=== PATIENT | male | born 1930 | race Two or more races ===

== ENCOUNTER 2016-09-21 16:31 | Inpatient (IN) | payer MEDICARE, MEDICAID ==
[2016-09-21] VITALS (9 sets, daily range): BP systolic 73–140; BP diastolic 38–65
[~2016-09-21] VITALS: Ht 165.1 cm; Wt 55.3 kg
--- NOTE | 2016-09-21 16:37 | NUR ---
BBRA FROM [facility] FOR RESPIRATORY DISTRESS X 30 MINS AIRPORT TRAFFIC CONTROLLER. GIVEN NARCAN IN FIELD, PER EMS REPORT PT RESPONDED. PT HAS LEFT FOOT #20 IV ACCESS. PLACED ON MONITOR. AWAITING MD ORDER
--- NOTE | 2016-09-21 16:50 | NUR ---
CALLED NURSING SUP. FOR ICU BED
[2016-09-21] MEDS ORDERED: Magnesium 1GM/D5W 100ML PREMIX 200 ML IV ONE (17:08)
[2016-09-21] MEDS ORDERED: IV NS 0.9% 1,000 ML IV ONE (17:08)
[2016-09-21] MEDS ORDERED: ONDA4TAB5 PO (17:11)
[2016-09-21] MEDS ORDERED: CLON0.1T PO (17:11)
[2016-09-21] MEDS ORDERED: ZINC30OI4 TP (17:11)
[2016-09-21] MEDS ORDERED: POLY15DR57 EACHEYE (17:11)
[2016-09-21] MEDS ORDERED: PHEN118S9 PO (17:11)
[2016-09-21] MEDS ORDERED: IPRA3AMP IH (17:11)
[2016-09-21] MEDS ORDERED: ALBUTEROL FS 2.5 MG/3 ML VIAL.NEB ONE (17:13)
[2016-09-21] MEDS ORDERED: IPRATROPIUM NEB FS 0.5 MG/2.5 ML AMPUL.NEB ONE (17:13)
[2016-09-21] MEDS ORDERED: ALBUTEROL FS 2.5 MG/3 ML VIAL.NEB CONTNEB ONE (17:30)
[2016-09-21] MEDS ORDERED: IPRATROPIUM NEB FS 0.5 MG/2.5 ML AMPUL.NEB NEB ONE (17:30)
[2016-09-21] MEDS ORDERED: methylPREDNISolone SOD SUCC 125 MG/2ML VIAL IV ONE (17:30)
[2016-09-21] MEDS ORDERED: SUCCINYLCHOLINE CHLORIDE 20 MG/ML VIAL IV ONE ×2 (17:30→20:05)
[2016-09-21] MEDS ORDERED: ETOMIDATE 2 MG/ML VIAL IV ONE ×2 (17:30→20:05)
--- NOTE | 2016-09-21 17:30 | NUR ---
PT INTUBATED ON MECH VENT AC 18 TV 450 FIO2 60 % PEEP 0 Addendum: 09/21/16 at 1943 by ALFREDOON FI02 100%
--- NOTE | 2016-09-21 17:40 | NUR ---
RT NOTE: LATE ENTRY- MD ORALLY INTUBATED WITH 7.0 ETT AND SECURED AT 22CM MID LIP LINE. BILATERAL CHEST RISE NOTED. POSITIVE COLOR CHANGE ON CAPNOMETER. PATIENT PLACED ON 840 VENT. SETTINGS PER MD ORDER. ALARMS SET AND AUDIBLE. AMBU BAG AT [facility].
[2016-09-21 17:50] LABS: BASOPHILS # (AUTO) 0.5 /CMM (0.0-0.2); BASOPHILS % (AUTO) 3.1 % (0.0-2.0); EOSINOPHILS % (AUTO) 0.1 % (0.0-6.0); HEMATOCRIT 35 % (39-51); HEMOGLOBIN 11.4 g/dL (13.5-17.5); LYMPHOCYTES # (AUTO) 0.9 /CMM (0.8-4.8); LYMPHOCYTES % (AUTO) 5.6 % (20.0-44.0); MEAN CORPUSCULAR HEMOGLOBIN 30 PG (26.0-33.0); MEAN CORPUSCULAR HGB CONC 33 g/dl (31.0-36.0); MEAN CORPUSCULAR VOLUME 90 fL (80-96); MONOCYTES # (AUTO) 1.1 /CMM (0.1-1.30); NEUTROPHILS # (AUTO) 13.4 /CMM (1.8-8.9); NEUTROPHILS % (AUTO) 84.2 % (43.0-81.0); PLATELET COUNT (AUTO) 247 /CMM (150-450); RDW COEFFICIENT OF VARIATION 16.8 (11.5-15.0); RED BLOOD CELL COUNT(AUTO) 3.86 MIL/uL (4.5-6.0); WHITE BLOOD COUNT (AUTO) 15.9 K/uL (4.3-11.0)
[2016-09-21 18:00] LABS: CALCIUM, SERUM 9.2 mg/dL (8.5-10.1); CARBON DIOXIDE 26 mmol/L (21-32); CHLORIDE 103 mmol/L (98-107); CREATININE 0.9 mg/dL (0.6-1.3); GLUCOSE 225 mg/dL (74-106); POTASSIUM 5.6 mmol/L (3.5-5.1); SODIUM SERUM 137 mmol/L (136-145); UREA NITROGEN, BLOOD 18 mg/dL (7-18)
[2016-09-21 18:08] LABS: TROPONIN I 0.254 ng/mL (0.00-0.056)
[2016-09-21 18:13] LABS: ALANINE AMINOTRANSFERASE 13 U/L (12-78); ALBUMIN 2.4 g/dL (3.4-5.0); ALKALINE PHOSPHATASE 115 U/L (46-116); ASPARTATE AMINOTRANSFERASE 27 U/L (15-37); B-TYPE NATRIURETIC PEPTIDE 13053 PG/ML (0-125); BILIRUBIN,DIRECT 0.1 mg/dL (0.0-0.2); BILIRUBIN,TOTAL 0.5 mg/dL (0.2-1.0); TOTAL PROTEIN, SERUM 7.1 g/dL (6.4-8.2)
--- NOTE | 2016-09-21 18:22 | NUR ---
DR.TIM JOI HENDRICKS POST ACUTE CARE NURSE
[2016-09-21] MEDS ORDERED: IV SET PRIMARY PUMP SET 1 EA INFUS.SET MC ONE ×3 (18:27→23:02)
[2016-09-21] MEDS ORDERED: IV NS 0.9% 1,000 ML ONE (18:27)
[2016-09-21] MEDS ORDERED: PIPERACILLIN /TAZOBACTAM 3.375 G in IV D5W 50 ML IV ONE (18:30)
[2016-09-21] MEDS ORDERED: ASPIRIN 81 MG TAB.CHEW PO ONE (18:30)
[2016-09-21] MEDS ORDERED: FUROSEMIDE 40 MG/4 ML VIAL IV ONE (18:30)
[2016-09-21] MEDS ORDERED: LEVOFLOXACIN 750 MG /D5W 150ML 150 ML IV ONE ×2 (18:30→18:40)
--- NOTE | 2016-09-21 18:31 | NUR ---
ATTEMPTED 3X TO INSERT 16FR NG TUBE, AND 1X TO INSERT 16FR OG TUBE. UNABLE TO INSERT. DR HARVEY NOTIFIED.
[2016-09-21] MEDS ORDERED: ASPIRIN 300 MG/SUPP.RECT RC ONE ×2 (18:40→19:00)
--- NOTE | 2016-09-21 18:40 | NUR ---
[facility] REPAGED
[2016-09-21 19:00] LABS: LACTIC ACID 4.5 mmol/L (0.4-2.0)
[2016-09-21] MEDS ORDERED: IV NS 0.9% 1,000 ML BAG IV ONE (19:00)
--- NOTE | 2016-09-21 19:04 | NUR ---
EPIC PAGED, DR.SIMONA Vasquez CHAIN CARRIER
--- NOTE | 2016-09-21 19:05 | NUR ---
REPORT REC'D FROM JESUS ARREGUIN FOR AMANDA. PER JESUS ARREGUIN - NO SKIN BREAKDOWN NOTED ON BACK. PT HAS SKIN TEAR ON LT HAND. AREA CLEANED AND COVERED WITH BANDAGE.
--- NOTE | 2016-09-21 19:25 | NUR ---
JESUS ARREGUIN AND JESUS GARCIA AT THE BEDSIDE FOR BRO CATH INSERTION. UNABLE TO INERT BRO. SALUD TRIED.
--- NOTE | 2016-09-21 19:26 | NUR ---
UNABLE TO INSERT A BRO CATH. DR. HARVEY IS AWARE.
--- NOTE | 2016-09-21 19:30 | NUR ---
TREVONED NURSING HULL BUILDER FOR MID LINE INSERTION.
--- NOTE | 2016-09-21 19:42 | NUR ---
GAVE REPORT TO [employer] ROOM 257 DR COBB ADMITTING . RESPIRATORY FAILURE
--- NOTE | 2016-09-21 19:43 | NUR ---
GAVE REPORT TO STEPHEN FOR AMANDA
--- NOTE | 2016-09-21 19:45 | NUR ---
DR. SAMANO IS AT THE BEDSIDE.
--- NOTE | 2016-09-21 19:47 | NUR ---
RT AT THE BEDSIDE AND PT IS BEING TRANSPORTED TO ICU VIA GURNEY PER PROTOCOL.
--- NOTE | 2016-09-21 20:06 | NUR ---
PT LEFT FOR ICU VIA GURNEY WITH RN AND RT, PER PROTOCOL.
--- NOTE | 2016-09-21 20:20 | NUR ---
SHELTER MONITOR. ADMISSION. RECEIVED THE PT FROM ER VIA [facility]. PT ORALLY INTUBATED. PT IS LETHARGIC.ETT #7, LIP 24CMS,AC 18,TV 450,FIO2 50%,SAT 98%. NO ACUTE DISTRESS NOTED. FORM SETTER STEEL PAN FORMS SHOWING NSR. IV RT UPPER ARM MID LINE. IVF NS 75 ML/H,HOB ELEVATED. NPO. AFEBRILE. CHRIS HAND SKIN TEAR AND BRUISE NOTED. PICTURE TAKEN. PLACED IN THE CHART. WILL CONTINUE TO MONITOR VITALS.
[2016-09-21] MEDS ORDERED: IV NS 0.9% 1,000 ML IV PRN (20:33)
[2016-09-21] MEDS ORDERED: VANCOMYCIN 1 GM in IV D5W 250 ML IV SCH (21:00)
[2016-09-21] MEDS ORDERED: ACETAMINOPHEN 650 MG/SUPP.RECT RC PRN (21:00)
[2016-09-21] MEDS ORDERED: ONDANSETRON HCL/PF 4 MG/2 ML VIAL IVP PRN (21:00)
[2016-09-21] MEDS ORDERED: PIPERACILLIN /TAZOBACTAM 4.5 G in IV D5W 50 ML IV SCH (21:00)
[2016-09-21] MEDS ORDERED: FEE PK DOSING 1 MIN EA MC ONE (21:02)
[2016-09-21] MEDS: POLYVINYL ALCOHOL 15 ML BOTTLE EACHEYE SCH (21:14)
[2016-09-21] MEDS: ENOXAPARIN SODIUM 40 MG/0.4 ML DISP.SYRIN SQ SCH (21:15)
[2016-09-21] MEDS ORDERED: SECONDARY IV SET 1 EA INFUS.SET MC ONE (21:30)
[2016-09-21] MEDS: VANCOMYCIN 0.75 GM in IV D5W 250 ML IV SCH (21:34)
[2016-09-21 21:44] LABS: ABG BASE EXCESS 0.3 mmol/L; ABG PCO2 36.4 mmHg (35.0-45.0); ABG PH 7.441 (7.350-7.450); ABG PO2 452.8 mmHg (75.0-100.0); ABG TOTAL HEMOGLOBIN 10.9 G/dL (13.5-18.0); AaDO2 223.8 mmHg; COHb 0.1 % (0.5-1.5); MetHb 1.3 % (0.0-1.5); O2Hb 97.6 % (94.0-97.0); PEEP,BG 0 cm H2O; SITE, ABG Right Radial; VENT MODE, BG AC 18 450 100%; VT, ABG 450 mL
[2016-09-21] MEDS ORDERED: PROPOFOL 100 ML IV ONE (23:02)
[2016-09-21] MEDS: PROPOFOL 100 ML IV PRN (23:08)
[2016-09-21] MEDS ORDERED: IPRATROPIUM NEB FS 0.5 MG/2.5 ML AMPUL.NEB NEB PRN (23:30)
--- NOTE | 2016-09-21 23:39 | NUR ---
RT PT RECEIVED INTUBATED FROM ER W/ A 7.0 @ 24CM LIP LINE. VENT SETTING NOTED. ETT PATENT AND SECURE WITH ETT MATHIS. BREATH SOUNDS BILATERAL CLEAR. SX SMALL AMOUNT OF THIN CLEAR SECRETIONS. ALARM SET AND AUDIBLE PER PROTOCOL. DISCONNECT ALARM VERIFIED. AMBU BAG AT [facility]. TABLE LEVER OPERATOR DONE. VENT PLUGGED IN TO RED OUTLET. NO SOB OR RESP DISTRESS NOTED AT THIS TIME. WILL CONTINUE TO MONITOR.
[2016-09-22] VITALS (58 sets, daily range): BP systolic 71–166; BP diastolic 36–77
[2016-09-22] MEDS: PIPERACILLIN /TAZOBACTAM 3.375 G in IV D5W 50 ML IV SCH ×5 (00:22→23:06)
[2016-09-22] MEDS ORDERED: ALBUTEROL FS 2.5 MG/3 ML VIAL.NEB NEB PRN (01:30)
--- NOTE | 2016-09-22 04:01 | NUR ---
AMBULANCE OFFICER. AM CARE, ORAL CARE, BED BATH GIVEN. LINEN CHANGED/REMAINING SAME VENT SETTING TOLERATED IV RT UPPER ARM MID LINE. IVF NS 75 ML/FC PATENT, NPO. FC. HOB ELEVATED. TURN AND REPOSITION Q2H. WILL CONTINUE TO MONITOR VITALS.
[2016-09-22 05:07] LABS: HEMATOCRIT 28 % (39-51); HEMOGLOBIN 9.5 g/dL (13.5-17.5); LYMPHOCYTES # (AUTO) 0.3 /CMM (0.8-4.8); LYMPHOCYTES % (AUTO) 4.5 % (20.0-44.0); MEAN CORPUSCULAR HEMOGLOBIN 29 PG (26.0-33.0); MEAN CORPUSCULAR HGB CONC 34 g/dl (31.0-36.0); MEAN CORPUSCULAR VOLUME 87 fL (80-96); MONOCYTES # (AUTO) 0.3 /CMM (0.1-1.30); MONOCYTES % (AUTO) 3.7 % (2.0-12.0); NEUTROPHILS % (AUTO) 91.8 % (43.0-81.0); PLATELET COUNT (AUTO) 169 /CMM (150-450); RDW COEFFICIENT OF VARIATION 17.3 (11.5-15.0); RED BLOOD CELL COUNT(AUTO) 3.25 MIL/uL (4.5-6.0); WHITE BLOOD COUNT (AUTO) 7.6 K/uL (4.3-11.0)
[2016-09-22 05:27] LABS: THYROID STIMULATING HORMONE 0.512 uIU/mL (0.358-3.74)
[2016-09-22 05:29] LABS: BILIRUBIN,TOTAL 0.6 mg/dL (0.2-1.0); CALCIUM, SERUM 8.2 mg/dL (8.5-10.1); CREATININE 0.8 mg/dL (0.6-1.3); PHOSPHORUS 1.9 mg/dL (2.5-4.9); POTASSIUM 3.9 mmol/L (3.5-5.1)
[2016-09-22 05:30] LABS: ALBUMIN 2.1 g/dL (3.4-5.0); MAGNESIUM 2.1 mg/dL (1.8-2.4); TOTAL PROTEIN, SERUM 5.9 g/dL (6.4-8.2)
--- NOTE | 2016-09-22 07:31 | NUR ---
RT PT RECEIVED ORALLY INTUBATED WITH A 7.0 ETT SECURED AT 24CM AT THE LIP LINE. PT IS ON THE VENT WITH NOTED SETTINGS. PT IS AWAKE AND ALERT. VENT ALARMS ARE SET AND AUDIBLE WITH BVM BY BEDSIDE. COATER SLATE CUFF PRESSURE NOTED. VENT IS PLUGGED INTO RED OUTLET. SX SMALL THICK YELLOW SECRETIONS. NO RESPIRATORY DISTRESS NOTED AT THIS TIME, WILL CONTINUE TO MONITOR. Addendum: 09/22/16 at 1022 by JAMAL ROMERO RT Amended: Links added.
[2016-09-22] MEDS: PANTOPRAZOLE 40 MG VIAL IV SCH (08:45)
[2016-09-22] MEDS: ASPIRIN 81 MG TAB.CHEW PO SCH (08:45)
[2016-09-22] MEDS: POLYVINYL ALCOHOL 15 ML BOTTLE EACHEYE SCH ×3 (08:45→16:30)
[2016-09-22] MEDS: VANCOMYCIN 0.75 GM in IV D5W 250 ML IV SCH ×2 (09:03→22:20)
[2016-09-22] MEDS ORDERED: BUMETANIDE INJ 6 MG in IV NS 0.9% 36 ML IV ONE (10:00)
[2016-09-22 10:13] LABS: ABG BASE EXCESS 1.5 mmol/L; ABG OXYGEN SATURATION 98.8 % (92.0-98.5); ABG PCO2 34.2 mmHg (35.0-45.0); ABG PH 7.479 (7.350-7.450); ABG PO2 188.6 mmHg (75.0-100.0); ABG TOTAL HEMOGLOBIN 9.1 G/dL (13.5-18.0); AaDO2 57.3 mmHg; COHb 0.8 % (0.5-1.5); MetHb 1.1 % (0.0-1.5); O2Hb 96.9 % (94.0-97.0); PEEP,BG 0 cm H2O; SITE, ABG Left Radial; VT, ABG 450 mL
[2016-09-22] MEDS ORDERED: IV SET PRIMARY PUMP SET 1 EA INFUS.SET MC ONE ×3 (10:23→20:23)
[2016-09-22] MEDS: PROPOFOL 100 ML IV PRN (11:17)
[2016-09-22] MEDS ORDERED: NOREPINEPHRINE 16 MG in IV D5W 500 ML IV PRN ×2 (11:30→20:30)
[2016-09-22] MEDS: FIBERSOURCE HN 1,000 ML BOTTLE GT PRN (14:50)
[2016-09-22] MEDS: IPRATROPIUM NEB FS 0.5 MG/2.5 ML AMPUL.NEB NEB SCH ×3 (15:25→23:20)
[2016-09-22] MEDS: ALBUTEROL FS 2.5 MG/3 ML VIAL.NEB NEB SCH ×3 (15:25→23:20)
[2016-09-22] MEDS ORDERED: NEUTRA PHOS 1 POWD.PACKET GT ONE (15:30)
[2016-09-22] MEDS: LACTOBACILLUS RHAMNOSUS GG 1 EACH CAP.SPRINK PO SCH (16:29)
[2016-09-22] MEDS: methylPREDNISolone SOD SUCC 125 MG/2ML VIAL IV SCH (16:30)
[2016-09-22] MEDS: IV D5/ 0.9% NACL 1,000 ML IV PRN (16:38)
--- NOTE | 2016-09-22 17:53 | NUR ---
PATCH SANDER NOTE 0720: Received patient resting comfortably. No respiratory distress noted, with ETT to vent, tolerated settings well. No c/o discomfort at this time. With JENNY midline intact, on Diprivan @ 10mcg. Patient still able to arouse easily, calm and comfortable. With OGT clamped. With condom cath connected to drainage bag, noted with clear keshia colored urine. With BILLET BED OPERATOR restraints on to prevent pulling out tubings. 1030: Started patient on Bumex drip as ordered by Aleida KAMARA. 1500: S/E by Dr. Kyle, with order of laryngoscopy and possible tracheostomy. ordered to DC Bumex drip and start on IVF. dairy husbandry worker on the case for patient has no relatives on file. 1530: Started patient on OGT feeding, kept HOB elevated. 1730: VSS at this time. Kept clean, warm and dry. Needs attended.
--- NOTE | 2016-09-22 19:48 | NUR ---
GRAIN GRADER. INITIAL ASSESSMENT, RECEIVED THE PT REST ON THE BED. ORALLY INTUBATED. SEDATED WITH DIPRIVAN. ETT #7,LIP 24,AC 18, TV 450, FIO2 40%. SAT 98%. NO ACUTE DISTRESS NOTED. SUPPLIER ENGINEER SHOWING NSR. IV RT UPPER ARM MIDLINE. IVF D5NS 75ML/H,DIPRIVAN 10 MCG/KG/MIN. OGT INTACT FIBER SOURCE 45ML/H. CONDOM CATH INTACT. AFEBRILE. HOB ELEVATED. TURN AND REPOSITION Q2H. WILL CONTINUE TO MONITOR VITALS.
[2016-09-22] MEDS: ENOXAPARIN SODIUM 40 MG/0.4 ML DISP.SYRIN SQ SCH (21:00)
[2016-09-23] VITALS (84 sets, daily range): BP systolic 76–152; BP diastolic 37–72
[2016-09-23] MEDS: IPRATROPIUM NEB FS 0.5 MG/2.5 ML AMPUL.NEB NEB SCH ×5 (03:37→20:22)
[2016-09-23] MEDS: ALBUTEROL FS 2.5 MG/3 ML VIAL.NEB NEB SCH ×5 (03:37→20:22)
--- NOTE | 2016-09-23 04:30 | NUR ---
FURNITURE FABRICATOR. AM CARE. ORAL CARE. BED BATH GIVEN. LINEN CHANGED. REMAINING SAME VENT SETTING TOLERATED WELL. SAT 98%. NO ACUTE DISTRESS NOTED. AIRCRAFT TIME CLERK SHOWING NSR. IV RT UPPER ARM MID LINE. IVF D5NS 75ML/H. PT IS NPO.FROM LAST NIGHT. OGT INTACT. AFEBRILE. TURN AND REPOSITION Q2H. WILL CONTINUE TO MONITOR VITALS.
[2016-09-23] MEDS: PIPERACILLIN /TAZOBACTAM 3.375 G in IV D5W 50 ML IV SCH ×4 (04:38→23:30)
[2016-09-23] MEDS: PROPOFOL 100 ML IV PRN ×2 (04:38→16:46)
[2016-09-23 04:42] LABS: BASOPHILS % (AUTO) 0.1 % (0.0-2.0); EOSINOPHILS % (AUTO) 0.1 % (0.0-6.0); HEMATOCRIT 27 % (39-51); HEMOGLOBIN 8.9 g/dL (13.5-17.5); LYMPHOCYTES # (AUTO) 0.5 /CMM (0.8-4.8); LYMPHOCYTES % (AUTO) 4.1 % (20.0-44.0); MEAN CORPUSCULAR HEMOGLOBIN 29 PG (26.0-33.0); MEAN CORPUSCULAR HGB CONC 33 g/dl (31.0-36.0); MEAN CORPUSCULAR VOLUME 88 fL (80-96); MONOCYTES # (AUTO) 0.3 /CMM (0.1-1.30); MONOCYTES % (AUTO) 2.8 % (2.0-12.0); NEUTROPHILS # (AUTO) 10.6 /CMM (1.8-8.9); NEUTROPHILS % (AUTO) 92.9 % (43.0-81.0); PLATELET COUNT (AUTO) 200 /CMM (150-450); RDW COEFFICIENT OF VARIATION 17.3 (11.5-15.0); RED BLOOD CELL COUNT(AUTO) 3.07 MIL/uL (4.5-6.0); WHITE BLOOD COUNT (AUTO) 11.4 K/uL (4.3-11.0)
[2016-09-23 05:29] LABS: TROPONIN I 0.094 ng/mL (0.00-0.056)
[2016-09-23 05:30] LABS: CALCIUM, SERUM 7.8 mg/dL (8.5-10.1)
[2016-09-23 05:31] LABS: BILIRUBIN,TOTAL 0.6 mg/dL (0.2-1.0); MAGNESIUM 1.7 mg/dL (1.8-2.4); PHOSPHORUS 2.4 mg/dL (2.5-4.9); TOTAL PROTEIN, SERUM 5.8 g/dL (6.4-8.2)
[2016-09-23 05:33] LABS: POTASSIUM 2.7 mmol/L (3.5-5.1)
[2016-09-23] MEDS ORDERED: Magnesium 1GM/D5W 100ML PREMIX 100 ML IV ONE (05:59)
[2016-09-23] MEDS ORDERED: POTASSIUM CL. PREMIX PERIPHER. 50 ML ONE (06:00)
[2016-09-23] MEDS ORDERED: IV SET PRIMARY PUMP SET 1 EA INFUS.SET MC ONE ×3 (06:00→16:42)
--- NOTE | 2016-09-23 06:19 | NUR ---
RUG CLEANER HAND. LAB CALLED FOR POTASSIUM 2.7. C EVANS COBB. NEW ORDER RECEIVED
[2016-09-23] MEDS: POTASSIUM CL. PREMIX PERIPHER. 50 ML IV SCH ×8 (06:40→14:33)
[2016-09-23] MEDS: Magnesium 1GM/D5W 100ML PREMIX 100 ML IV SCH ×2 (06:56→08:10)
--- NOTE | 2016-09-23 06:57 | NUR ---
COTTON TIER. DR COBB ORDERED POTASSIUM CHLORIDE 40MEQ ,IVB MAGNESIUM 2G IVB K PHOS 30MM IVB
[2016-09-23] MEDS ORDERED: Potassium Phosphate meq 11 MEQ in IV D5W 100 ML IV SCH (07:00)
[2016-09-23] MEDS: PANTOPRAZOLE 40 MG VIAL IV SCH (08:10)
[2016-09-23] MEDS: ASPIRIN 81 MG TAB.CHEW PO SCH ×3 (08:10→12:44)
[2016-09-23] MEDS: LACTOBACILLUS RHAMNOSUS GG 1 EACH CAP.SPRINK PO SCH ×3 (08:10→16:40)
[2016-09-23] MEDS: methylPREDNISolone SOD SUCC 125 MG/2ML VIAL IV SCH ×2 (08:10→16:42)
[2016-09-23] MEDS: POLYVINYL ALCOHOL 15 ML BOTTLE EACHEYE SCH ×3 (08:11→16:43)
[2016-09-23] MEDS: Potassium Phosphate meq 11 MEQ in IV D5W 100 ML IV SCH ×4 (08:35→17:15)
[2016-09-23] MEDS ORDERED: Magnesium 1GM/D5W 100ML PREMIX 100 ML IV SCH (10:00)
[2016-09-23] MEDS: VANCOMYCIN 0.75 GM in IV D5W 250 ML IV SCH (10:04)
[2016-09-23 10:07] LABS: ABG BASE EXCESS 4.7 mmol/L; ABG PCO2 29.8 mmHg (35.0-45.0); ABG PO2 140.4 mmHg (75.0-100.0); ABG TOTAL HEMOGLOBIN 9.3 G/dL (13.5-18.0); AaDO2 38.5 mmHg; MetHb 1.8 % (0.0-1.5); O2Hb 96.2 % (94.0-97.0); PEEP,BG 0 cm H2O; SITE, ABG Right Radial; VT, ABG 450 mL
--- NOTE | 2016-09-23 11:32 | NUR ---
MECHANICAL DESIGN ENGINEER PRODUCTS NOTE 0720: Received patient resting well. With ETT to vent, tolerated settings well. With JENNY midline intact and RH PIV intact. On IVF infusing as ordered, On KCl and Mg IV bolus for replacements, will F/U with pharmacy re: KPhos. With OGT clamped at this time, will remain NPO for possible procedure. Off Levo for about an hour per previous shift, will monitor for need of Levophed. SBP >90 at this time. On Diprivan @ 10mcg. SB 50's on the monitor, noted with deep inverted T wave. 0820: Rendered sedation vacation, patient with episodes of reaching ETT. Placed back on 10mcg for safety, patient remained calm. S/E by Dr. Wilson, with order for additional KCl IVPB. 1045: S/E by Dr. Kyle, no new order at this time. 1130: S/E by Aleida KAMARA and placed IVAN PICC line and also used Coudet catheter for having difficulty placing Mendes cath. Aleida KAMARA said ok to use PICC line.
--- NOTE | 2016-09-23 13:02 | NUR ---
QUALITY PROCESS LEAD NOTE Made Aleida KAMARA aware for the EKG result, SB 48 with deep inversion of T wave, with order to give Aspirin that was held in am and Trop level.
--- NOTE | 2016-09-23 13:30 | NUR ---
BIOLOGY INTERN NOTE Made Aleida KAMARA aware for the trop 0.077, no new order at this time.
[2016-09-23] MEDS: IV D5/ 0.9% NACL 1,000 ML IV PRN (14:30)
--- NOTE | 2016-09-23 19:23 | NUR ---
COUNSELING CASE MANAGER. INITIAL ASSESSMENT. RECEIVED THE PT REST ON THE BED. ORALLY INTUBATED. SEDATED WITH DIPRIVAN. ETT #7,LIP 24CMS,AC 18,TV 450, FIO2 30%. SAT 98%. NO ACUTE DISTRESS NOTED. GLAZING SUPERINTENDENT SHOWING S CANDICE. IV RT UPPER ARM MID LINE. LT UPPER ARM PICC LINE DIPRIVAN 10 MCG/KG/MIN,IVF D5NS 75 ML/H.HOB ELEVATED. FC PATENT. URINE DRAINING. TURN AND REPOSITION Q2H. WILL CONTINUE TO MONITOR VITALS
[2016-09-23] MEDS: FIBERSOURCE HN 1,000 ML BOTTLE GT PRN (20:49)
[2016-09-23] MEDS: ENOXAPARIN SODIUM 40 MG/0.4 ML DISP.SYRIN SQ SCH (21:00)
[2016-09-23] MEDS: VANCOMYCIN 500 MG in IV D5W 100 ML IV SCH (21:35)
[2016-09-24] VITALS (50 sets, daily range): BP systolic 104–167; BP diastolic 49–87
[2016-09-24] MEDS: IPRATROPIUM NEB FS 0.5 MG/2.5 ML AMPUL.NEB NEB SCH ×7 (00:34→23:59)
[2016-09-24] MEDS: ALBUTEROL FS 2.5 MG/3 ML VIAL.NEB NEB SCH ×7 (00:34→23:59)
[2016-09-24] MEDS: IV D5/ 0.9% NACL 1,000 ML IV PRN (02:29)
--- NOTE | 2016-09-24 02:49 | NUR ---
HOG SCALDER. AM CARE. ORAL CARE, BED BATH GIVEN. LINEN CHANGED. RE,AINING SAME VENT SETTINGS. ONT FEEDING OFF AT 0230 . PT POSTED FOR SURGERY TODAY.NPO. HOB ELEVATED. LT UPPER ARM PICC LINEIVF D5NS 75 ML/H,DIPRIVAN 10MCG/KG/MIN. FC PATENT. URINE DRAINING. TURN AND REPOSITION Q2H. WILL CONTINUE TO MONITOR VITALS.
[2016-09-24 04:52] LABS: BASOPHILS % (AUTO) 0.1 % (0.0-2.0); HEMATOCRIT 28 % (39-51); LYMPHOCYTES # (AUTO) 0.3 /CMM (0.8-4.8); LYMPHOCYTES % (AUTO) 4.3 % (20.0-44.0); MEAN CORPUSCULAR HEMOGLOBIN 28 PG (26.0-33.0); MEAN CORPUSCULAR HGB CONC 32 g/dl (31.0-36.0); MEAN CORPUSCULAR VOLUME 88 fL (80-96); MONOCYTES # (AUTO) 0.3 /CMM (0.1-1.30); MONOCYTES % (AUTO) 4.5 % (2.0-12.0); NEUTROPHILS # (AUTO) 6.7 /CMM (1.8-8.9); NEUTROPHILS % (AUTO) 91.1 % (43.0-81.0); PLATELET COUNT (AUTO) 206 /CMM (150-450); RDW COEFFICIENT OF VARIATION 18.4 (11.5-15.0); RED BLOOD CELL COUNT(AUTO) 3.19 MIL/uL (4.5-6.0); WHITE BLOOD COUNT (AUTO) 7.3 K/uL (4.3-11.0)
[2016-09-24 04:53] LABS: CALCIUM, SERUM 7.7 mg/dL (8.5-10.1); CREATININE 0.8 mg/dL (0.6-1.3); MAGNESIUM 2.2 mg/dL (1.8-2.4); PHOSPHORUS 2.9 mg/dL (2.5-4.9); POTASSIUM 3.7 mmol/L (3.5-5.1)
[2016-09-24] MEDS: PIPERACILLIN /TAZOBACTAM 3.375 G in IV D5W 50 ML IV SCH ×4 (05:05→23:03)
[2016-09-24] MEDS: PROPOFOL 100 ML IV PRN ×2 (06:17→16:49)
--- NOTE | 2016-09-24 07:30 | NUR ---
D/W DR SANTIZO ALL LABS, MEDS, PLAN. PT AWAKE, MOUTH WORDS IN GREENLAND[place]. MINIMALLY SEDATED WITH DIPRIVAN 10 MKM. NPO FOR SURGERY
[2016-09-24 08:45] LABS: ABG PCO2 29.8 mmHg (35.0-45.0); ABG PH 7.506 (7.350-7.450); ABG PO2 186.2 mmHg (75.0-100.0); PEEP,BG 0 cm H2O; SITE, ABG Left Radial; VT, ABG 400 mL
[2016-09-24] MEDS: LACTOBACILLUS RHAMNOSUS GG 1 EACH CAP.SPRINK PO SCH ×2 (08:51→16:51)
[2016-09-24 08:56] LABS: IRON, SERUM 49 ug/dl (50-175); TOTAL IRON BINDING CAPACITY 137 ug/dl (250-450)
[2016-09-24] MEDS: methylPREDNISolone SOD SUCC 125 MG/2ML VIAL IV SCH (09:01)
[2016-09-24] MEDS: PANTOPRAZOLE 40 MG VIAL IV SCH (09:01)
[2016-09-24] MEDS: POLYVINYL ALCOHOL 15 ML BOTTLE EACHEYE SCH ×3 (09:01→16:49)
[2016-09-24 09:16] LABS: FERRITIN 296 ng/mL (8-388)
[2016-09-24] MEDS ORDERED: IV D5/ 0.9% NACL 1,000 ML IV PRN (09:30)
--- NOTE | 2016-09-24 10:00 | NUR ---
R/V'D W DR LUO ALL MEDS AND PLANS. SEE NOTES. IV OF D5NS CONTINUES AT 50 MLS/HR
[2016-09-24] MEDS: VANCOMYCIN 500 MG in IV D5W 100 ML IV SCH ×2 (10:05→22:01)
[2016-09-24] MEDS ORDERED: LIDOCAINE 1%-EPI 1:100,000 20 ML VIAL ONE (11:07)
--- NOTE | 2016-09-24 11:30 | NUR ---
PLANNED SURGERY IS NOT AN EMERGENCY PT HAS ETT IN PLACE. MULTIPLE D/W DR LUO AND ANESTHESIOLOGIST REGARDING SURGERY CONSENTS. DR LUO WILL NOT SIGN ANESTHESIA CONSENT. ANESTHESIOLOGIST WILL NOT ACCEPT DR SANTIZO AND DR LUO AND YANET TAMEZ PROGRESS NOTES CONSENT NOR SURGEON'S OPINION REGARDING NEED FOR PROCEDURE. SOCIAL SERVICE HAS NOT WRITTEN NOTES ABOUT FINDING FAMILY THEY WERE DIRECTED TO LAST SUNDAY AM AND PT STATES BY NOTE THAT HE HAS FAMILY. I ATTEMPTED TO GOOGLE FAMILY.
--- NOTE | 2016-09-24 12:17 | NUR ---
PT WRITES HIS SON'S NAME "DONNA MAHARAJ" WHEN ASKED IF HE HAS FAMILY. SEE NOTE IN CHART. DOES NOT KNOW NUMBER. SOCIAL SERVICE WAS ASKED BY ORDER FROM DR LUO ON Sunday09/22/16 AT 1100 TO FIND FAMILY AND THERE IS NO NOTE FROM FRANCHISE SALES REPRESENTATIVE REGARDING FAMILY SEARCH EFFORTS/RESULTS. SURGERY CANCELLED BY ANESTHESIOLOGIST UNTIL THESE ISSUES ARE FOLLOWED UP TO ENSURE PROPER CONSENT. PT HAS STABLE AIRWAY WITH ETT.
--- NOTE | 2016-09-24 15:45 | NUR ---
YANET TAMEZ AWARE OF ALL EVENTS AND SPOKE W PT
[2016-09-24] MEDS ORDERED: IV SET PRIMARY PUMP SET 1 EA INFUS.SET MC ONE ×2 (16:40→20:21)
[2016-09-24] MEDS: MORPHINE SULFATE INJ 2 MG/ML DISP.SYRIN IV PRN (17:31)
--- NOTE | 2016-09-24 19:30 | NUR ---
Received patient mildly sedated on Diprivan drip at 15 mcg/kg/min open eyes to name.With bilateral soft wrist restraints on to prevent self extubation.Currently intubated to vent on AC mode tolerating well.Suctioned small amount pale yellow secretions. Oral care done.SR per monitor.Hemodynamically stable.Maintained on NPO status with IVF infusing well.OGT clamped and patent. No apparent distress.Turned and repositioned.
[2016-09-24] MEDS: Z GUARD REMEDY 2 OZ OINT TP SCH (21:04)
[2016-09-24] MEDS: ENOXAPARIN SODIUM 40 MG/0.4 ML DISP.SYRIN SQ SCH (21:04)
[2016-09-24] MEDS ORDERED: SECONDARY IV SET 1 EA INFUS.SET MC ONE (21:12)
[2016-09-25] VITALS (36 sets, daily range): BP systolic 106–145; BP diastolic 34–70
--- NOTE | 2016-09-25 01:00 | NUR ---
Patient awake .VS stable.SR.AM care done.Denies pain.Turned and repositioned.Wound care and photos taken.No active bleeding noted.Mepilex applied.
[2016-09-25] MEDS: IPRATROPIUM NEB FS 0.5 MG/2.5 ML AMPUL.NEB NEB SCH ×6 (04:13→23:57)
[2016-09-25] MEDS: ALBUTEROL FS 2.5 MG/3 ML VIAL.NEB NEB SCH ×6 (04:13→23:57)
[2016-09-25 05:07] LABS: HEMATOCRIT 27 % (39-51); HEMOGLOBIN 8.7 g/dL (13.5-17.5); LYMPHOCYTES # (AUTO) 0.3 /CMM (0.8-4.8); LYMPHOCYTES % (AUTO) 4.7 % (20.0-44.0); MEAN CORPUSCULAR HEMOGLOBIN 28 PG (26.0-33.0); MEAN CORPUSCULAR HGB CONC 32 g/dl (31.0-36.0); MEAN CORPUSCULAR VOLUME 88 fL (80-96); MONOCYTES # (AUTO) 0.2 /CMM (0.1-1.30); NEUTROPHILS # (AUTO) 5.5 /CMM (1.8-8.9); NEUTROPHILS % (AUTO) 91.3 % (43.0-81.0); PLATELET COUNT (AUTO) 198 /CMM (150-450); RDW COEFFICIENT OF VARIATION 18.4 (11.5-15.0); RED BLOOD CELL COUNT(AUTO) 3.05 MIL/uL (4.5-6.0); WHITE BLOOD COUNT (AUTO) 6.1 K/uL (4.3-11.0)
[2016-09-25] MEDS: PROPOFOL 100 ML IV PRN ×2 (05:08→20:30)
[2016-09-25] MEDS: PIPERACILLIN /TAZOBACTAM 3.375 G in IV D5W 50 ML IV SCH ×4 (05:08→22:07)
[2016-09-25 05:21] LABS: CALCIUM, SERUM 8.1 mg/dL (8.5-10.1); CREATININE 0.8 mg/dL (0.6-1.3); MAGNESIUM 2.1 mg/dL (1.8-2.4); PHOSPHORUS 2.6 mg/dL (2.5-4.9); POTASSIUM 3.4 mmol/L (3.5-5.1)
--- NOTE | 2016-09-25 06:25 | NUR ---
Patient resting remains sedated on Diprivan at 15 mcg/kg/min.VS stable.SR/SB 53 non sustaining per monitor.No distress noted.IVF infusing well.Still waiting for family contact prior to surgery. here updated of patient status.
--- NOTE | 2016-09-25 07:30 | NUR ---
ICU/RN: PT RECEIVED, INTUBATED, RESPONDS TO NAME AND TOUCH, FOLLOWS SOME COMMANDS. FC DRAINING TO GRAVITY. DRESSING C/D/I. GT AUSCULTATED, POSITIVE PLACEMENT, CLAMPED. SB 48 ON MONITOR, ASYMPTOMATIC. WILL CONT TO MONITOR PT
[2016-09-25] MEDS: PANTOPRAZOLE 40 MG VIAL IV SCH (08:01)
[2016-09-25] MEDS: Z GUARD REMEDY 2 OZ OINT TP SCH ×2 (08:01→20:40)
[2016-09-25] MEDS: LACTOBACILLUS RHAMNOSUS GG 1 EACH CAP.SPRINK PO SCH ×2 (08:01→17:05)
[2016-09-25] MEDS: methylPREDNISolone SOD SUCC 125 MG/2ML VIAL IV SCH (08:01)
[2016-09-25] MEDS: POLYVINYL ALCOHOL 15 ML BOTTLE EACHEYE SCH ×3 (08:02→17:05)
[2016-09-25] MEDS ORDERED: IV SET PRIMARY PUMP SET 1 EA INFUS.SET MC ONE ×2 (08:59→12:20)
[2016-09-25] MEDS: VANCOMYCIN 500 MG in IV D5W 100 ML IV SCH ×2 (09:05→21:05)
--- NOTE | 2016-09-25 09:49 | NUR ---
ICU/RN: RECEIVED PHONE CALL FROM DONNA MAHARAJ (SON) [phone]. UPDATED ON PT STATUS. SON TO COME IN LATER THIS AFTERNOON TO VISIT AND DISCUSS POC. FELT HAT POUNCING OPERATOR HAND AND DR LUO MADE AWARE.
[2016-09-25] MEDS ORDERED: SECONDARY IV SET 1 EA INFUS.SET MC ONE (10:39)
[2016-09-25] MEDS: POTASSIUM CL. PREMIX PERIPHER. 50 ML IV SCH ×2 (11:06→12:24)
[2016-09-25] MEDS ORDERED: IV 1/2NS 1000 ML 1,000 ML IV ONE (11:30)
[2016-09-25] MEDS: IV D5/0.45 NACL 1,000 ML IV PRN (12:27)
--- NOTE | 2016-09-25 16:05 | NUR ---
ICU/RN: JEREMIE THOMPSON AT THE BEDSIDE. DISCUSSED POC WITH DR LUO. NEW ORDERS NOTED AND CARRIED OUT.
--- NOTE | 2016-09-25 16:10 | NUR ---
manager icu called dr. Omar rondon office left message for procedure laryngoscopy (son in an agreement with md recommendation who is at bedside) scheduling awaiting for call back. left message with pt name room number and icu phone number.
--- NOTE | 2016-09-25 17:29 | NUR ---
ICU/RN: PT REMAINS INTUBATED, COMFORTABLE ON CURRENT VENT SETTINGS. FC DRAINING WELL TO GRAVITY. CARE ENDORSED TO JESUS BAUTISTA FOR AMANDA.
--- NOTE | 2016-09-25 19:30 | NUR ---
DESIGN ENGINEERING INTERN PT RECEIVED IN BED. PT SEDATED ON DIPRIVAN. ETT IN PLACE, SECURED, AND CONNECTED TO VENT (24 AT LIP ) ON AC SETTINGS PER MD ORDER. PT SHOWS NO SIGNS OF RESPIRATORY DISTRESS. SUCTIONED PT AND ORAL CARE DONE. SINUS CANDICE ON THE MONITOR. NO SIGNS OF HEMODYNAMIC INSTABILITY. BILATERAL WRIST RESTRAINTS IN PLACE TO ENSURE PATENT AIRWAY. SKIN UNDER RESTRAINTS INTACT AND PINK. OGT IN PLACE AND CLAMPED. AUSCULTATED FOR PLACEMENT. FC TUBING DISCONNECTED AND OPEN AND SPILLED ON BED. LINENS CHANGED. R ARM MIDLINE AND L ARM PICC INTACT AND PATENT. IVF RUNNING PER MD ORDER. SIDE RAILS UP X2 AND CALL LIGHT WITHIN REACH. WILL CONT TO MONITOR FOR ANY CHANGES IN CONDITION
--- NOTE | 2016-09-25 20:30 | NUR ---
ESCALATOR SERVICE MECHANIC: CALLED DR REZA CHRISTY TO CLARIFY IF LOVENOX SHOULD BE GIVEN TONIGHT DUE TO CONSENT BEING SIGNED TODAY FOR DIRECT LARYNGOSCOPY AND POSSIBLE TRACH. AWAITING CALL BACK.
--- NOTE | 2016-09-25 21:00 | NUR ---
MANAGER VEHICLE PT IS NOT ON SURGERY LIST FOR TOMORROW AND THERE IS NO ORDER FOR SURGERY ON CHART . CLARIFIED WITH CHARGE NURSE ANUPAM AND MRI CT TECH NOEMI . LOVENOX GIVEN ORDERED.
[2016-09-25] MEDS: ENOXAPARIN SODIUM 40 MG/0.4 ML DISP.SYRIN SQ SCH (21:14)
--- NOTE | 2016-09-25 23:30 | NUR ---
SCIENTIFIC INFORMATICS PROJECT LEADER BED BATH GIVEN . PT TOLERATED WELL. WOUND CARE DONE ON LEFT ARM. PT IN DEEP SLEEP . PTS HR DROPS TO SB 38-39. DIPRIVAN LOWERED TO 10 MCG/MIN . PT AWAKE AND DENIES ANY DISCOMFORT OR DIZZINESS. HR DOES NOT SUSTAIN IN THE 30S WILL CONT TO MONITOR. Addendum: 09/25/16 at 2347 by MONROE WELCH RN ASYMPTOMATIC BRADYCARDIA NOTED BUT PTS BP WNL AT 108/68 . WILL CONT TO MONITOR.
[2016-09-26] VITALS (39 sets, daily range): BP systolic 108–150; BP diastolic 48–68
[2016-09-26] MEDS: ALBUTEROL FS 2.5 MG/3 ML VIAL.NEB NEB SCH ×6 (03:06→23:12)
[2016-09-26] MEDS: IPRATROPIUM NEB FS 0.5 MG/2.5 ML AMPUL.NEB NEB SCH ×6 (03:06→23:12)
[2016-09-26 04:39] LABS: BASOPHILS % (AUTO) 0.2 % (0.0-2.0); EOSINOPHILS % (AUTO) 0.1 % (0.0-6.0); HEMATOCRIT 28 % (39-51); HEMOGLOBIN 9.1 g/dL (13.5-17.5); LYMPHOCYTES # (AUTO) 0.8 /CMM (0.8-4.8); LYMPHOCYTES % (AUTO) 10.8 % (20.0-44.0); MEAN CORPUSCULAR HEMOGLOBIN 28 PG (26.0-33.0); MEAN CORPUSCULAR HGB CONC 32 g/dl (31.0-36.0); MEAN CORPUSCULAR VOLUME 88 fL (80-96); MONOCYTES # (AUTO) 0.3 /CMM (0.1-1.30); MONOCYTES % (AUTO) 3.6 % (2.0-12.0); NEUTROPHILS # (AUTO) 6.2 /CMM (1.8-8.9); NEUTROPHILS % (AUTO) 85.3 % (43.0-81.0); PLATELET COUNT (AUTO) 210 /CMM (150-450); RDW COEFFICIENT OF VARIATION 18.4 (11.5-15.0); RED BLOOD CELL COUNT(AUTO) 3.19 MIL/uL (4.5-6.0); WHITE BLOOD COUNT (AUTO) 7.3 K/uL (4.3-11.0)
[2016-09-26] MEDS: PIPERACILLIN /TAZOBACTAM 3.375 G in IV D5W 50 ML IV SCH ×4 (04:54→22:32)
[2016-09-26 05:01] LABS: CALCIUM, SERUM 8.1 mg/dL (8.5-10.1); CREATININE 0.7 mg/dL (0.6-1.3); MAGNESIUM 1.9 mg/dL (1.8-2.4); PHOSPHORUS 2.7 mg/dL (2.5-4.9); POTASSIUM 3.7 mmol/L (3.5-5.1)
--- NOTE | 2016-09-26 07:25 | NUR ---
ICU/RN: PT RESTING IN BED COMFORTABLY, NO DISTRESS NOTED, BREATHING EVEN AND UNLABORED; INTUBATED WITH ETT 7.0 AT 24 LIP LINE, AC 12, TV 400 FIO2 30% PEEP 0. PT RESPONDS TO NAME AND TOUCH, ABLE TO FOLLOW SIMPLE COMMANDS. SINUS CANDICE ON MONITOR; REMAINS HEMODYNAMICALLY STABLE. OGT CLAMPED; AUSCULTATED, POSITIVE PLACEMENT. FC DRAINING CLEAR YELLOW URINE TO GRAVITY. IVF INFUSING WELL THROUGH IVAN PICC; JENNY ML PATENT, FLUSHED WITH GOOD BLOOD RETURN. ALARM SOUNDS CHECKED AND AUDIBLE. WILL CONT TO MONITOR PT
[2016-09-26] MEDS ORDERED: IV SET PRIMARY PUMP SET 1 EA INFUS.SET MC ONE (07:45)
--- NOTE | 2016-09-26 08:00 | NUR ---
ICU/RN: DR SANTIZO AT THE BEDSIDE; INFORMED OF PT WITH BRIEF PERIODS OF SB IN 35'S OVERNIGHT, ASYMPTOMATIC. NO NEW ORDERS.
[2016-09-26] MEDS: LACTOBACILLUS RHAMNOSUS GG 1 EACH CAP.SPRINK PO SCH ×2 (08:35→16:02)
[2016-09-26] MEDS: PROPOFOL 100 ML IV PRN (08:35)
[2016-09-26] MEDS: PANTOPRAZOLE 40 MG VIAL IV SCH (08:35)
[2016-09-26] MEDS: Z GUARD REMEDY 2 OZ OINT TP SCH ×2 (08:36→20:51)
[2016-09-26] MEDS: methylPREDNISolone SOD SUCC 125 MG/2ML VIAL IV SCH (08:36)
[2016-09-26] MEDS: POLYVINYL ALCOHOL 15 ML BOTTLE EACHEYE SCH ×3 (08:36→16:03)
--- NOTE | 2016-09-26 09:00 | NUR ---
ICU/RN: DR LUO AT THE BEDSIDE. UPDATED ON PT STATUS, AND PERIODS OF BRADYCARDIA. INFORMED MD THAT MESSAGE TO DR YATES WAS LEFT BY NET SOFTWARE ARCHITECT YESTERDAY, HOWEVER DID NOT RECEIVE CALL BACK/ORDERS/SCHEDULE FOR PROCEDURE. WILL F/U.
[2016-09-26] MEDS ORDERED: SECONDARY IV SET 1 EA INFUS.SET MC ONE (11:23)
[2016-09-26] MEDS: VANCOMYCIN 500 MG in IV D5W 100 ML IV SCH (11:26)
--- NOTE | 2016-09-26 13:51 | NUR ---
ICU/RN: PAGED DR YATES TO F/U EENT CONSULT, PER VP SOFTWARE SUPPORT WILL RELAY MESSAGE TO MD TO RETURN CALL TO ICU. AWAITING CALL BACK FROM MD.
[2016-09-26] MEDS: IV D5/0.45 NACL 1,000 ML IV PRN (16:27)
--- NOTE | 2016-09-26 16:27 | NUR ---
ICU/RN: CALLED DR YATES'S OFFICE TO F/U; PER OFFICE, IS AWARE AND WILL CALL BACK. RUBBER COVERING MACHINE OPERATOR, DR LUO AWARE.
--- NOTE | 2016-09-26 19:17 | NUR ---
ICU/RN: PT LAYING IN BED, COMFORTABLE, NO DISTRESS NOTED, WATCHING TV, TELE READING SINUS BRADYCARDIA IN 50'S. IVF INFUSING WELL. FC DRAINING WELL TO GRAVITY. CARE ENDORSED TO PM RN FOR AMANDA.
[2016-09-26] MEDS: ENOXAPARIN SODIUM 40 MG/0.4 ML DISP.SYRIN SQ SCH (20:51)
[2016-09-27] VITALS (38 sets, daily range): BP systolic 103–142; BP diastolic 46–89
[2016-09-27] MEDS: ALBUTEROL FS 2.5 MG/3 ML VIAL.NEB NEB SCH ×6 (03:38→23:59)
[2016-09-27] MEDS: IPRATROPIUM NEB FS 0.5 MG/2.5 ML AMPUL.NEB NEB SCH ×6 (03:38→23:59)
[2016-09-27 04:59] LABS: BASOPHILS % (AUTO) 0.2 % (0.0-2.0); EOSINOPHILS % (AUTO) 0.2 % (0.0-6.0); HEMATOCRIT 29 % (39-51); HEMOGLOBIN 9.4 g/dL (13.5-17.5); LYMPHOCYTES # (AUTO) 0.9 /CMM (0.8-4.8); LYMPHOCYTES % (AUTO) 10.7 % (20.0-44.0); MEAN CORPUSCULAR HEMOGLOBIN 29 PG (26.0-33.0); MEAN CORPUSCULAR HGB CONC 33 g/dl (31.0-36.0); MEAN CORPUSCULAR VOLUME 87 fL (80-96); MONOCYTES # (AUTO) 0.3 /CMM (0.1-1.30); MONOCYTES % (AUTO) 3.1 % (2.0-12.0); NEUTROPHILS # (AUTO) 7.2 /CMM (1.8-8.9); NEUTROPHILS % (AUTO) 85.8 % (43.0-81.0); PLATELET COUNT (AUTO) 209 /CMM (150-450); RDW COEFFICIENT OF VARIATION 18.5 (11.5-15.0); RED BLOOD CELL COUNT(AUTO) 3.29 MIL/uL (4.5-6.0); WHITE BLOOD COUNT (AUTO) 8.4 K/uL (4.3-11.0)
[2016-09-27] MEDS ORDERED: VANCOMYCIN 500 MG in IV D5W 100 ML IV SCH (05:00)
[2016-09-27 05:15] LABS: CALCIUM, SERUM 7.8 mg/dL (8.5-10.1); CREATININE 0.7 mg/dL (0.6-1.3); MAGNESIUM 1.7 mg/dL (1.8-2.4); PHOSPHORUS 2.9 mg/dL (2.5-4.9); POTASSIUM 3.4 mmol/L (3.5-5.1)
[2016-09-27] MEDS: PIPERACILLIN /TAZOBACTAM 3.375 G in IV D5W 50 ML IV SCH ×4 (05:33→22:26)
--- NOTE | 2016-09-27 08:00 | NUR ---
ICU/RN INITIAL NOTES,AM RECEIVED REPORT FROM NIGHT NURSE. PT OPENS EYES, FOLLOWS SIMPLE COMMANDS. PT INTUBATED ETT 7.5, 24CM AT THE LIP. VENT SETTINGS ORDERED BY MD, NO ACUTE DISTRESS NOTED AT THIS TIME. PT SINUS CANDICE ON TELE. VS OTHERWISE STABLE. PERIODS OF HR IN 30S NOTED, AWARE, NO NEW ORDERS. OG TUBE IN PLACE, PLACEMENT VERIFIED. PICC LINE AND MIDLINE PATENT AND INTACT, NO S/S OF INFECTION OR INFILTRATION NOTED. AWAITING FOR TO SCHEDULE TRACH PLACEMENT, CONSENT IN CHART. ALL NEEDS WILL BE MET, SAFETY MEASURES TAKEN, BED IN LOW POSITION, SIDE RAILS UP, CALL LIGHT WITHIN REACH. WILL CONTINUE CARE
[2016-09-27] MEDS ORDERED: SECONDARY IV SET 1 EA INFUS.SET MC ONE (09:10)
[2016-09-27 09:17] LABS: ABG PCO2 34.9 mmHg (35.0-45.0); ABG PH 7.493 (7.350-7.450); ABG PO2 132.8 mmHg (75.0-100.0); ABG TOTAL HEMOGLOBIN 10.4 G/dL (13.5-18.0); AaDO2 40.1 mmHg; COHb 0.1 % (0.5-1.5); MetHb 1.3 % (0.0-1.5); O2Hb 96.6 % (94.0-97.0); PEEP,BG 0 cm H2O; SITE, ABG Right Radial; VT, ABG 400 mL
[2016-09-27] MEDS: LACTOBACILLUS RHAMNOSUS GG 1 EACH CAP.SPRINK PO SCH ×2 (09:19→17:48)
[2016-09-27] MEDS: Magnesium 1GM/D5W 100ML PREMIX 100 ML IV SCH ×2 (09:19→10:50)
[2016-09-27] MEDS: PANTOPRAZOLE 40 MG VIAL IV SCH (09:19)
[2016-09-27] MEDS: methylPREDNISolone SOD SUCC 125 MG/2ML VIAL IV SCH (09:19)
[2016-09-27] MEDS: POTASSIUM CHLORIDE 20 MEQ TAB.PRT.SR PO SCH ×2 (09:19→10:50)
[2016-09-27] MEDS: POLYVINYL ALCOHOL 15 ML BOTTLE EACHEYE SCH ×3 (09:20→17:45)
[2016-09-27] MEDS: Z GUARD REMEDY 2 OZ OINT TP SCH ×2 (09:20→20:20)
--- NOTE | 2016-09-27 15:00 | NUR ---
ICU/RN: RECEIVED TELEPHONE ORDERS FROM DR. YATES FOR TRACH PLACEMENT 09/29/15 AT 1230. CONSENT SIGNED AND IN CHART. WILL MAKE NPO POST MIDNIGHT. PT AND SON NOTIFIED OF PLANS FOR PROCEDURE. WILL CONTINUE CARE AND PROVIDE NEEDED CARE
[2016-09-27] MEDS: IV D5/0.45 NACL 1,000 ML IV PRN (17:52)
--- NOTE | 2016-09-27 19:19 | NUR ---
ICU/RN ENDING NOTES,AM REPORT ENDORSED TO NIGHT NURSE FOR CONTINUATION OF CARE. ON VENT SETTINGS ORDERED BY MD, NO DISTRESS. PT CANDICE ON TELE. SCHEDULED FOR TRACH PLACEMENT IN AM, CONSENT IN CHART. ALL NEEDS MET, IV FLUIDS INFUSING. ENDORSED REPORT FOR CONTINUATION OF CARE. SAFETY MEASURES TAKEN. BED IN LOW POSITION, SIDE RAILS UP, CALL LIGHT WITHIN REACH.
--- NOTE | 2016-09-27 20:14 | NUR ---
received pt from day shift, alert, follows commands, SB (42-45) MD aware, intubated on the vent, lungs partially congested, no edema, OG clamped, f/c good output, restraints on, v/s stable, no pain, pt turned and repositioned.
[2016-09-27] MEDS: ENOXAPARIN SODIUM 40 MG/0.4 ML DISP.SYRIN SQ SCH (20:20)
--- NOTE | 2016-09-27 20:21 | NUR ---
Lovenox is not given because pt is going to have trach placement in the morning.
[2016-09-28] VITALS (53 sets, daily range): BP systolic 105–163; BP diastolic 39–79
--- NOTE | 2016-09-28 00:08 | NUR ---
pt is resting in the bed, alert, follows commands, SR, SB, v/s stable, no pain, pt turned and repositioned q2hrs.
[2016-09-28] MEDS: IPRATROPIUM NEB FS 0.5 MG/2.5 ML AMPUL.NEB NEB SCH ×6 (03:50→23:31)
[2016-09-28] MEDS: ALBUTEROL FS 2.5 MG/3 ML VIAL.NEB NEB SCH ×6 (03:50→23:31)
--- NOTE | 2016-09-28 04:09 | NUR ---
pt is resting in the bed, no acute distress overnight, SR, SB, alert, follows commands, v/s stable, no pain, pt cleaned, changed and repositioned q2hrs.
[2016-09-28] MEDS: PIPERACILLIN /TAZOBACTAM 3.375 G in IV D5W 50 ML IV SCH ×4 (04:15→23:06)
[2016-09-28 04:58] LABS: EOSINOPHILS % (AUTO) 0.1 % (0.0-6.0); HEMATOCRIT 31 % (39-51); HEMOGLOBIN 10.2 g/dL (13.5-17.5); LYMPHOCYTES # (AUTO) 0.8 /CMM (0.8-4.8); LYMPHOCYTES % (AUTO) 6.6 % (20.0-44.0); MEAN CORPUSCULAR HEMOGLOBIN 29 PG (26.0-33.0); MEAN CORPUSCULAR HGB CONC 33 g/dl (31.0-36.0); MEAN CORPUSCULAR VOLUME 88 fL (80-96); MONOCYTES # (AUTO) 0.3 /CMM (0.1-1.30); MONOCYTES % (AUTO) 2.3 % (2.0-12.0); PLATELET COUNT (AUTO) 199 /CMM (150-450); RDW COEFFICIENT OF VARIATION 18.4 (11.5-15.0); RED BLOOD CELL COUNT(AUTO) 3.49 MIL/uL (4.5-6.0); WHITE BLOOD COUNT (AUTO) 12.1 K/uL (4.3-11.0)
[2016-09-28 05:16] LABS: CALCIUM, SERUM 7.8 mg/dL (8.5-10.1); CREATININE 0.7 mg/dL (0.6-1.3); MAGNESIUM 2.2 mg/dL (1.8-2.4); PHOSPHORUS 3.1 mg/dL (2.5-4.9); POTASSIUM 3.1 mmol/L (3.5-5.1)
[2016-09-28 05:33] LABS: INR 1.01 (0.87-1.13); PROTHROMBIN TIME 10.8 SECS (9.5-12.7)
--- NOTE | 2016-09-28 07:35 | NUR ---
COMPANY ACCOUNTANT RECEIVED PATIENT FORM THE PREVIOUS SHIFT. PATIENT IN BED. RESTING COMFORTABLY. NO ACUTE DISTRESS NOTED. EVEN NON LABORED BREATHING PATTERN. ALERT AND ORIENTED X 4. OFF SEDATION. SINUS CANDICE ON MONITOR. BLOOD PRESSURE NORMAL. AFEBRILE. GOOD URINE OUTPUT. TURNED AND REPOSITIONED FOR COMFORT AND WOUND PREVENTION. WILL CONTINUE TO MONITOR AND PROVIDE CARE.
[2016-09-28] MEDS: POTASSIUM CL. PREMIX PERIPHER. 50 ML IV SCH ×4 (08:17→11:46)
[2016-09-28] MEDS: PANTOPRAZOLE 40 MG VIAL IV SCH (08:18)
[2016-09-28] MEDS: methylPREDNISolone SOD SUCC 125 MG/2ML VIAL IV SCH (08:18)
[2016-09-28] MEDS: Z GUARD REMEDY 2 OZ OINT TP SCH ×2 (08:19→21:22)
[2016-09-28] MEDS: LACTOBACILLUS RHAMNOSUS GG 1 EACH CAP.SPRINK PO SCH ×2 (08:19→17:27)
[2016-09-28] MEDS: POLYVINYL ALCOHOL 15 ML BOTTLE EACHEYE SCH ×3 (09:16→17:28)
[2016-09-28] MEDS ORDERED: LIDOCAINE 1%-EPI 1:100,000 20 ML VIAL ONE ×2 (10:50→12:40)
[2016-09-28] MEDS ORDERED: FENTANYL PF 100MCG/2ML AMPUL ONE (12:35)
[2016-09-28] MEDS ORDERED: ATRACURIUM 100MG/10 ML MDV IV ONE (12:35)
--- NOTE | 2016-09-28 12:45 | NUR ---
RT PT TAKEN TO OR FOR PROCEDURE. NO SOB OR RESPIRATORY DISTRESS NOTED AT THIS TIME.
--- NOTE | 2016-09-28 13:28 | NUR ---
RT PT BROUGHT BACK FROM PROCEDURE. PT RECEIVED TRACHED WITH A SHILEY 8 CUFFED. SOME BLEEDING NOTICED AT TRACH SITE. PT PLACED BACK ON VENT WITH NOTED SETTINGS. VENT ALARMS ARE SET AND AUDIBLE WITH BVM BY BEDSIDE. SUPERVISOR ENGINE ASSEMBLY CUFF PRESSURE NOTED. VENT IS PLUGGED INTO RED OUTLET. SX SMALL THICK YELLOW/RED SECRETIONS. NO RESPIRATORY DISTRESS NOTED AT THIS TIME, WILL CONTINUE TO MONITOR. Addendum: 09/28/16 at 1330 by JAMAL ROMERO RT Amended: Links added.
[2016-09-28] MEDS ORDERED: ANESTHESIA TRAY IN PYXIS 1 EA TRAY MC ONE (13:58)
[2016-09-28] MEDS: MORPHINE SULFATE INJ 2 MG/ML DISP.SYRIN IV PRN ×2 (14:05→17:27)
[2016-09-28] MEDS: IV D5/0.45 NACL 1,000 ML IV PRN (17:26)
--- NOTE | 2016-09-28 18:11 | NUR ---
UNIX SYSTEMS ADMINISTRATOR PATIENT IN BED. RESTING COMFORTABLY. NO ACUTE DISTRESS. MINIMAL BLEEDING NOTED FROM THE TRACH SITE. DRESSING REINFORCED. SINUS CANDICE ON MONITOR. AFEBRILE. ALERT AND ORIENTED X 4. WILL CONTINUE TO MONITOR AND PROVIDE CARE.
--- NOTE | 2016-09-28 20:25 | NUR ---
received pt from day shift, alert, follows commands, SB, s/p trach, no bleeding noted, on the vent, lungs partially congested, no edema, f/c OK output, NPO, OG clamped, v/s stable, no pain, pt turned and repositioned.
[2016-09-28] MEDS: ENOXAPARIN SODIUM 40 MG/0.4 ML DISP.SYRIN SQ SCH (21:22)
[2016-09-29] VITALS (58 sets, daily range): BP systolic 101–144; BP diastolic 51–81
--- NOTE | 2016-09-29 00:12 | NUR ---
pt is resting in the bed, v/s stable, no pain, pt turned and repositioned q2hrs.
[2016-09-29] MEDS: ALBUTEROL FS 2.5 MG/3 ML VIAL.NEB NEB SCH ×6 (03:52→23:13)
[2016-09-29] MEDS: IPRATROPIUM NEB FS 0.5 MG/2.5 ML AMPUL.NEB NEB SCH ×6 (03:53→23:13)
--- NOTE | 2016-09-29 04:11 | NUR ---
pt is resting in the bed, no acute distress overnight, v/s stable, no pain, pt cleaned, changed and repositioned q2hrs.
[2016-09-29] MEDS: PIPERACILLIN /TAZOBACTAM 3.375 G in IV D5W 50 ML IV SCH ×4 (04:21→23:15)
[2016-09-29 04:54] LABS: BASOPHILS % (AUTO) 0.1 % (0.0-2.0); EOSINOPHILS % (AUTO) 0.6 % (0.0-6.0); HEMATOCRIT 29 % (39-51); HEMOGLOBIN 9.7 g/dL (13.5-17.5); LYMPHOCYTES # (AUTO) 0.7 /CMM (0.8-4.8); LYMPHOCYTES % (AUTO) 7.8 % (20.0-44.0); MEAN CORPUSCULAR HEMOGLOBIN 30 PG (26.0-33.0); MEAN CORPUSCULAR HGB CONC 34 g/dl (31.0-36.0); MEAN CORPUSCULAR VOLUME 88 fL (80-96); MONOCYTES # (AUTO) 0.3 /CMM (0.1-1.30); MONOCYTES % (AUTO) 3.7 % (2.0-12.0); NEUTROPHILS # (AUTO) 7.9 /CMM (1.8-8.9); NEUTROPHILS % (AUTO) 87.8 % (43.0-81.0); PLATELET COUNT (AUTO) 158 /CMM (150-450); RDW COEFFICIENT OF VARIATION 18.4 (11.5-15.0)
[2016-09-29 05:20] LABS: CALCIUM, SERUM 8.1 mg/dL (8.5-10.1); CREATININE 0.7 mg/dL (0.6-1.3); MAGNESIUM 1.8 mg/dL (1.8-2.4); PHOSPHORUS 3.1 mg/dL (2.5-4.9); POTASSIUM 3.7 mmol/L (3.5-5.1)
--- NOTE | 2016-09-29 07:35 | NUR ---
MATE CHIEF RECEIVED PATIENT FROM THE PREVIOUS SHIFT. PATIENT IS IN BED. NO ACUTE DISTRESS NOTED. ALERT AND ORIENTED X 2. MINIMAL BLEEDING NOTED FROM THE TRACH SITE. SINUS CANDICE ON MONITOR. NORMAL BP. GOOD URINE OUTPUT. HYPOACTIVE BOWEL SOUNDS. PULSES PRESENT AT ALL 4 EXTREMITIES. TURNED AND REPOSITIONED FOR COMFORT AND WOUND PREVENTION. WILL CONTINUE TO MONITOR AND PROVIDE CARE.
[2016-09-29] MEDS: LACTOBACILLUS RHAMNOSUS GG 1 EACH CAP.SPRINK PO SCH ×2 (08:13→18:56)
[2016-09-29] MEDS ORDERED: IV SET PRIMARY PUMP SET 1 EA INFUS.SET MC ONE (09:34)
[2016-09-29] MEDS: Z GUARD REMEDY 2 OZ OINT TP SCH ×2 (09:35→21:40)
[2016-09-29] MEDS: POLYVINYL ALCOHOL 15 ML BOTTLE EACHEYE SCH ×3 (09:35→18:55)
[2016-09-29] MEDS: PANTOPRAZOLE 40 MG VIAL IV SCH (09:38)
[2016-09-29] MEDS: methylPREDNISolone SOD SUCC 125 MG/2ML VIAL IV SCH (09:39)
[2016-09-29 11:11] LABS: ABG BASE EXCESS 1.8 mmol/L; ABG OXYGEN SATURATION 97.7 % (92.0-98.5); ABG PCO2 37.6 mmHg (35.0-45.0); ABG PH 7.452 (7.350-7.450); ABG PO2 113.9 mmHg (75.0-100.0); AaDO2 55.8 mmHg; COHb 0.9 % (0.5-1.5); O2Hb 95.8 % (94.0-97.0); PEEP,BG 5 cm H2O; SITE, ABG Right Radial; VENT MODE, BG SIMV -PSV=12; VT, ABG 400 mL
[2016-09-29] MEDS: UREA 10% -AHA 4% CREAM 57 GM TUBE TP SCH ×2 (13:12→21:38)
--- NOTE | 2016-09-29 13:33 | NUR ---
DEALER SALES REP PATIENT IS TOLERATING SIMV MODE WELL. NO DISTRESS. TURNED AND REPOSITIONED FOR COMFORT AND WOUND PREVENTION.
--- NOTE | 2016-09-29 17:03 | NUR ---
RT NOTE: PATIENT RECEIVED WITH #8 SHILEY TRACH ON MECH VENT. ALARMS VERIFIED AND AUDIBLE. SUCTIONED AND LAVAGED SMALL-MODERATE AMOUNT OF BLOODY SECRETIONS. VENT CHANGES MADE PER 'S ORDER AND NOTED. PATIENT TOLERATING WELL. COOL AEROSOL ORDER IN THE AM WILL BE ENDORSE TO INCOMING SHIFT. VENT PLUGGED INTO RED OUTLET. AMBU BAG AT [facility].
[2016-09-29] MEDS: IV D5/0.45 NACL 1,000 ML IV PRN (18:55)
[2016-09-29] MEDS ORDERED: FIBERSOURCE HN 1,000 ML BOTTLE GT PRN (19:00)
[2016-09-29] MEDS: ENOXAPARIN SODIUM 40 MG/0.4 ML DISP.SYRIN SQ SCH (21:41)
[2016-09-30] VITALS (32 sets, daily range): BP systolic 113–152; BP diastolic 42–74
[2016-09-30] MEDS: ALBUTEROL FS 2.5 MG/3 ML VIAL.NEB NEB SCH ×6 (03:20→23:53)
[2016-09-30] MEDS: IPRATROPIUM NEB FS 0.5 MG/2.5 ML AMPUL.NEB NEB SCH ×6 (03:20→23:53)
[2016-09-30] MEDS: PIPERACILLIN /TAZOBACTAM 3.375 G in IV D5W 50 ML IV SCH ×4 (05:05→23:40)
[2016-09-30 05:34] LABS: CALCIUM, SERUM 7.9 mg/dL (8.5-10.1); CREATININE 0.6 mg/dL (0.6-1.3); POTASSIUM 3.5 mmol/L (3.5-5.1)
--- NOTE | 2016-09-30 07:05 | NUR ---
VISITING TEACHER- RECEIVED PT AWAKE, ALERT, ABLE TO FOLLOW SIMPLE COMMANDS. ON MECHANICAL VENT, SETTINGS ORDERED, RESPIRATIONS EVEN AND UNLABORED, NO SOB OR DISTRESS PRESENT, SATURATING WELL AT 99%. BEDSIDE MONITOR REVEALS SINUS RHYTHM, HR= 61. TWO IVS PRESENT: 1) JENNY MIDLINE AND 2) IVAN PICC LINE RUNNING D5 1/2NS @ 50 MLS/HR. OG TUBE RUNNING FIBERSOURCE @ 30 MLS/HR. BRO CATHETER DRAINING CLEAR, YELLOW URINE. SAFETY MEASURES TAKEN: BED LOCKED AND IN LOW POSITION, SIDE RAILS UP X2, BED ALARM ON AND CALL LIGHT WITHIN REACH, WILL CONTINUE TO MONITOR.
[2016-09-30] MEDS: LACTOBACILLUS RHAMNOSUS GG 1 EACH CAP.SPRINK PO SCH (08:27)
[2016-09-30] MEDS: PANTOPRAZOLE 40 MG VIAL IV SCH (08:27)
[2016-09-30] MEDS: UREA 10% -AHA 4% CREAM 57 GM TUBE TP SCH ×2 (08:27→21:19)
[2016-09-30] MEDS: methylPREDNISolone SOD SUCC 125 MG/2ML VIAL IV SCH (08:27)
[2016-09-30] MEDS: POLYVINYL ALCOHOL 15 ML BOTTLE EACHEYE SCH ×3 (08:27→17:11)
[2016-09-30] MEDS: Z GUARD REMEDY 2 OZ OINT TP SCH ×2 (08:28→21:20)
--- NOTE | 2016-09-30 09:59 | NUR ---
PT PLACED ON COOL AEROSOL ON 35% FIO2 , CUFF PARTIALLY DEFLATED. PT SATURATING WELL. NO RESP. DISTRESS NOTED.
--- NOTE | 2016-09-30 11:20 | NUR ---
PREMIUM REPRESENTATIVE- NURSING BEDSIDE SWALLOW EVAL COMPLETED. APPLESAUCE GIVEN TO PT AND PT COUGHED. SWALLOW EVAL ORDERED. NPO PLACED. ASPIRATION PRECAUTIONS MAINTAINED. 1210- OG TUBE REMOVED PER Alondra TAMEZ'S ORDER. WILL CONTINUE TO MONITOR.
[2016-09-30 11:28] LABS: ABG BASE EXCESS 2.6 mmol/L; ABG OXYGEN SATURATION 98.7 % (92.0-98.5); ABG PCO2 37.7 mmHg (35.0-45.0); ABG PH 7.464 (7.350-7.450); ABG PO2 206.8 mmHg (75.0-100.0); ABG TOTAL HEMOGLOBIN 10.3 G/dL (13.5-18.0); COHb 0.1 % (0.5-1.5); MetHb 1.1 % (0.0-1.5); O2Hb 97.5 % (94.0-97.0); SITE, ABG Right Brachial; VENT MODE, BG AEROSOL
[2016-09-30] MEDS: IV D5/0.45 NACL 1,000 ML IV PRN (17:11)
--- NOTE | 2016-09-30 18:45 | NUR ---
SECURITY ALARM TECHNICIAN- PT TRANSFERRED TO [facility] FLOOR [phone]. BEDSIDE REPORT GIVEN TO MCKENZIE LEE AT 1915. PT IN NO ACUTE DISTRESS.
--- NOTE | 2016-09-30 19:30 | NUR ---
RN NOTES RECEIVED PT. AWAKE ON BED, NON-VERBAL,TRACH IN PLACE WITH COOL AEROSOL, TRACH SITE SLIGHTLY BLEEDING BECAUSE IT'S A NEW TRACH-MD IS AWARE, F/C DRAINING CLEAR YELLOW URINE, SR ON TELE MONITOR HR-62, NOT IN DISTREAA, CALL LIGHT WITHIN REACH, SIDERAILS UPX2 CONTINUE TO MONITOR
[2016-09-30] MEDS: ENOXAPARIN SODIUM 40 MG/0.4 ML DISP.SYRIN SQ SCH (21:18)
[2016-10-01] VITALS (7 sets, daily range): BP systolic 124–149; BP diastolic 58–73
--- NOTE | 2016-10-01 03:00 | NUR ---
RN NOTES TALKED TO THE RT REGARDING PT TRACH STILL BLEEDING SLIGHTLY- RT TOLD ME THAT BECAUSE TRACH WAS JUST PUT YESTERDAY THAT WHY IT'S STILL BLEEDING A LITTLE BIT. CHANGE THE DRESSING AND CLEAN THE AREA
[2016-10-01] MEDS: ALBUTEROL FS 2.5 MG/3 ML VIAL.NEB NEB SCH ×6 (03:39→23:23)
[2016-10-01] MEDS: IPRATROPIUM NEB FS 0.5 MG/2.5 ML AMPUL.NEB NEB SCH ×6 (03:39→23:22)
[2016-10-01] MEDS: PIPERACILLIN /TAZOBACTAM 3.375 G in IV D5W 50 ML IV SCH ×4 (05:15→23:19)
--- NOTE | 2016-10-01 06:56 | NUR ---
RN NOTES AWAKE, IV FLUID RUNNING , MORNING CARE RENDERED, PT NEEDS ATTENDED
--- NOTE | 2016-10-01 07:26 | NUR ---
TELE/RN OPENING NOTES RECEIVED PATIENT IN BED AWAKE IN NO ACUTE SIGNS OF DISTRESS. HEAD OF BED ELEVATED. ALERT AND ORIENTED X4 IN NO ACUTE SIGNS OF DISTRESS. ABLE TO FOLLOW SIMPLE COMMANDS, NO SIGNS OF PAIN OR DISCOMFORTS OBSERVED. ON TELE-MONITORING WITH CURRENT READING OF SINUS RHYTHM AND HR 61. PATIENT ON AEROSOL TRACH COLLAR AT 35%FI02, TOLERATING WELL WITH NO ACUTE RESPIRATORY DISTRESS NOTED, SP02 100% AT THIS TIME. IVAN MIDLINE INTACT AND PATENT WITH D51/2 NS INFUSING WELL. BRO IN PLACE AND ACTIVELY DRAINING CLEAR YELLOW URINE TO DRAINAGE BAG. BED IN LOWEST POSITION, LOCKED AND SIDE-RAILS UP APPROPRIATE. CALL LIGHT WITHIN REACH. ALL SAFETY MEASURES MAINTAINED. WILL CONTINUE TO MONITOR ACCORDINGLY
[2016-10-01 07:37] LABS: CREATININE 0.6 mg/dL (0.6-1.3); MAGNESIUM 1.8 mg/dL (1.8-2.4); PHOSPHORUS 2.1 mg/dL (2.5-4.9); POTASSIUM 3.2 mmol/L (3.5-5.1)
[2016-10-01 07:55] LABS: BASOPHILS % (AUTO) 0.3 % (0.0-2.0); EOSINOPHILS # (AUTO) 0.1 /CMM (0.0-0.7); EOSINOPHILS % (AUTO) 0.8 % (0.0-6.0); HEMATOCRIT 31 % (39-51); HEMOGLOBIN 10.3 g/dL (13.5-17.5); LYMPHOCYTES # (AUTO) 0.6 /CMM (0.8-4.8); LYMPHOCYTES % (AUTO) 7.4 % (20.0-44.0); MEAN CORPUSCULAR HEMOGLOBIN 29 PG (26.0-33.0); MEAN CORPUSCULAR HGB CONC 33 g/dl (31.0-36.0); MEAN CORPUSCULAR VOLUME 88 fL (80-96); MONOCYTES # (AUTO) 0.5 /CMM (0.1-1.30); MONOCYTES % (AUTO) 5.9 % (2.0-12.0); NEUTROPHILS # (AUTO) 6.8 /CMM (1.8-8.9); NEUTROPHILS % (AUTO) 85.6 % (43.0-81.0); PLATELET COUNT (AUTO) 138 /CMM (150-450); RDW COEFFICIENT OF VARIATION 18.5 (11.5-15.0); RED BLOOD CELL COUNT(AUTO) 3.56 MIL/uL (4.5-6.0); WHITE BLOOD COUNT (AUTO) 7.9 K/uL (4.3-11.0)
[2016-10-01] MEDS: PANTOPRAZOLE 40 MG VIAL IV SCH (09:42)
[2016-10-01] MEDS: methylPREDNISolone SOD SUCC 125 MG/2ML VIAL IV SCH (09:42)
[2016-10-01] MEDS: UREA 10% -AHA 4% CREAM 57 GM TUBE TP SCH ×2 (09:43→21:38)
[2016-10-01] MEDS: POLYVINYL ALCOHOL 15 ML BOTTLE EACHEYE SCH ×3 (09:44→17:53)
[2016-10-01] MEDS: Z GUARD REMEDY 2 OZ OINT TP SCH ×2 (09:44→21:37)
--- NOTE | 2016-10-01 11:00 | NUR ---
RN NOTES PATIENT NOTED WITH LOW K 3.2, AWARE WITH ORDER TO ADMINISTER 4 BAGS OF 10MEQ/50ML IVPB. WILL CONTINUE TO MONITOR
--- NOTE | 2016-10-01 11:43 | NUR ---
RN NOTES PATIENT ON NPO, FOR SWALLOW EVALUATION. WILL CONTINUE TO MONITOR. Addendum: 10/01/16 at 1145 by NEDRA HAWKINS RN Amended: Links added.
[2016-10-01] MEDS ORDERED: SECONDARY IV SET 1 EA INFUS.SET MC ONE (11:57)
[2016-10-01] MEDS: POTASSIUM CL. PREMIX PERIPHER. 50 ML IV SCH ×4 (12:03→15:32)
[2016-10-01] MEDS ORDERED: Sodium Phosphate 15 MMOL in IV D5W 250 ML IV ONE (16:00)
--- NOTE | 2016-10-01 18:58 | NUR ---
TELE/RN CLOSING NOTES PATIENT IN BED AWAKE AND RESTING AT MODERATE HIGH BACKREST. ALERT AND FOLLOWS SIMPLE COMMANDS. VISITED BY FAMILY THIS MORNING. NO SIGNIFICANT CHANGES NOTED DURING TOUR. ALL NEEDS AND CARE PROVIDED. DUE MEDS GIVEN ORDERED AND TOLERATED. ON TELE-MONITORING WITH CURRENT READING OF SR WITH HR OF 71. ON AEROSOL TRACH COLLAR AT 35%FI02, TOLERATED THIS TOUR WITH NO SOB NOTED. ALL NEEDS AND CARE PROVIDED WELL. MIDLINE ON JENNY AND PICC ON IVAN INTACT AND PATENT WITH IVF INFUSING WELL. BED KEPT IN LOWEST POSITION, LOCKED WIT SIDE-RAILS UP X2. CALL LIGHT WITHIN REACH. ALL SAFETY MEASURES MAINTAINED. ENDORSED TO STRESS TEST TECHNICIAN FOR AMANDA..
--- NOTE | 2016-10-01 19:25 | NUR ---
TELE/RN NOTES RECEIVED PT. LYING IN BED. AWAKE, ALERT AND ORIENTED TO SELF. PT. ABLE TO FOLLOW SIMPLE COMMANDS. PT. WITH RECENTLY PLACED TRACH AND T-PIECE PRESENT ON COOL AEROSOL FIO2 35%. BREATHING EVEN AND UNLABORED NO RESPIRATORY DISTRESS OR SOB NOTED. NO S/S OF PAIN NOTED. PT. WITH EXTERNAL CONING MACHINE OPERATOR PRESENT AND INTACT. CURRENT RHYTHM = SINUS CANDICE HR 57. PT. WITH LEFT UPPER ARM PICC LINE PRESENT, PATENT AND INTACT ADMINISTERING TO PT. D5 1/2 NS @ 50ML/HR. PT. WITH RIGHT UPPER ARM MIDLINE PRESENT, PATENT AND INTACT ADMINISTERING TO PT. SODIUM PHOS 15 MMOL IN D5W. PT. WITH BRO CATHETER PRESENT, PATENT AND INTACT DRAINING CLEAR YELLOW URINE. PT. BLE OFFLOADED ON PILLOWS. BED IN LOWEST POSITION, CALL LIGHT WITHIN REACH, WILL CONTINUE TO MONITOR.
[2016-10-01] MEDS: ENOXAPARIN SODIUM 40 MG/0.4 ML DISP.SYRIN SQ SCH (21:38)
[2016-10-01] MEDS: IV D5/0.45 NACL 1,000 ML IV PRN (23:19)
[2016-10-02] VITALS: BP 145/62
[2016-10-02] MEDS: ALBUTEROL FS 2.5 MG/3 ML VIAL.NEB NEB SCH ×6 (03:41→23:36)
[2016-10-02] MEDS: IPRATROPIUM NEB FS 0.5 MG/2.5 ML AMPUL.NEB NEB SCH ×6 (03:41→23:36)
[2016-10-02 05:30] VITALS: BP 134/62
[2016-10-02] MEDS: PIPERACILLIN /TAZOBACTAM 3.375 G in IV D5W 50 ML IV SCH ×4 (05:52→23:16)
[2016-10-02 06:46] LABS: BASOPHILS % (AUTO) 0.2 % (0.0-2.0); EOSINOPHILS % (AUTO) 0.5 % (0.0-6.0); HEMATOCRIT 30 % (39-51); HEMOGLOBIN 9.8 g/dL (13.5-17.5); LYMPHOCYTES # (AUTO) 0.6 /CMM (0.8-4.8); LYMPHOCYTES % (AUTO) 8.8 % (20.0-44.0); MEAN CORPUSCULAR HEMOGLOBIN 29 PG (26.0-33.0); MEAN CORPUSCULAR HGB CONC 33 g/dl (31.0-36.0); MEAN CORPUSCULAR VOLUME 88 fL (80-96); MONOCYTES # (AUTO) 0.5 /CMM (0.1-1.30); MONOCYTES % (AUTO) 7.2 % (2.0-12.0); NEUTROPHILS % (AUTO) 83.3 % (43.0-81.0); PLATELET COUNT (AUTO) 174 /CMM (150-450); RDW COEFFICIENT OF VARIATION 18.4 (11.5-15.0); RED BLOOD CELL COUNT(AUTO) 3.37 MIL/uL (4.5-6.0); WHITE BLOOD COUNT (AUTO) 7.2 K/uL (4.3-11.0)
[2016-10-02 06:57] LABS: CALCIUM, SERUM 8.1 mg/dL (8.5-10.1); CREATININE 0.6 mg/dL (0.6-1.3); MAGNESIUM 1.7 mg/dL (1.8-2.4); PHOSPHORUS 2.2 mg/dL (2.5-4.9); POTASSIUM 3.3 mmol/L (3.5-5.1)
--- NOTE | 2016-10-02 07:45 | NUR ---
TELE/RN NOTES PT. LYING IN BED RESTING. BREATHING EVEN AND UNLABORED NO RESPIRATORY DISTRESS OR SOB NOTED. NO S/S OF PAIN NOTED. PT. WITH EXTERNAL UNIVERSITY MANAGER PRESENT AND INTACT. CURRENT RHYTHM = SINUS CANDICE HR 54. PT. WITH LEFT UPPER ARM PICC LINE PRESENT, PATENT AND INTACT ADMINISTERING TO PT. D5 1/2 NS @ 50ML/HR. PT. WITH RIGHT UPPER ARM MIDLINE PRESENT, PATENT AND INTACT. PT. WITH BRO CATHETER PRESENT, PATENT AND INTACT DRAINING CLEAR YELLOW URINE. ALL PT. NEEDS MET. PT. OFFLOADED. TURNED AND REPOSITIONED Q2H AND NEEDED. BED IN LOWEST POSITION, CALL LIGHT WITHIN REACH, WILL ENDORSE TO DAYSHIFT NURSE FOR CONTINUITY OF CARE.
--- NOTE | 2016-10-02 08:00 | NUR ---
RFID SPECIALIST NOTES PT IN BED, ASLEEP, EASY TO AROUSE, ALERT AND ORIENTED, VERBALLY RESPONSIVE, ON TRACH WITH COOL AEROSOL, NOT IN DISTRESS, DENIES PAIN, TURNED AND REPOSITIONED, F/C INTACT AND PATENT, DRAINING WELL WITH CLEAR, YELLOW URINE, KEPT CLEAN AND COMFORTABLE.
[2016-10-02 08:18] VITALS: BP 125/61
[2016-10-02] MEDS: methylPREDNISolone SOD SUCC 125 MG/2ML VIAL IV SCH (10:05)
[2016-10-02] MEDS: Z GUARD REMEDY 2 OZ OINT TP SCH ×2 (10:06→21:28)
[2016-10-02] MEDS: POLYVINYL ALCOHOL 15 ML BOTTLE EACHEYE SCH ×3 (10:06→16:27)
[2016-10-02] MEDS: UREA 10% -AHA 4% CREAM 57 GM TUBE TP SCH ×2 (10:06→21:29)
[2016-10-02] MEDS: PANTOPRAZOLE 40 MG VIAL IV SCH (10:06)
[2016-10-02] MEDS ORDERED: SECONDARY IV SET 1 EA INFUS.SET MC ONE (11:19)
[2016-10-02] MEDS: POTASSIUM CL. PREMIX PERIPHER. 50 ML IV SCH ×2 (11:25→12:46)
[2016-10-02] MEDS ORDERED: IV SET PRIMARY PUMP SET 1 EA INFUS.SET MC ONE (11:25)
[2016-10-02 12:00] VITALS: BP 129/67
[2016-10-02] MEDS: Magnesium 1GM/D5W 100ML PREMIX 100 ML IV SCH ×2 (12:46→13:58)
--- NOTE | 2016-10-02 13:30 | NUR ---
DIRECTOR OF QUALITY CONTROL NOTES PT IN BED, NOT IN PAIN OR DISTRESS, SWALLOW EVAL DONE, PER ST NOT READY YET FOR PO, WILL EVAL AGAIN TOMORROW, IV FLUIDS INFUSING WELL, CALL LIGHT WITHIN REACH, KEPT CLEAN, DRY AND COMFORTABLE.
[2016-10-02] MEDS ORDERED: POTASSIUM PHOSPHATE MM 7.5 MMOL in IV D5W 100 ML IV SCH (14:30)
[2016-10-02 15:50] VITALS: BP 117/64
--- NOTE | 2016-10-02 18:22 | NUR ---
MACHINE CONTAINER WASHER NOTES PT IN BED, RESTING, NOT IN PAIN OR DISTRESS, IV FLUIDS INFUSING WELL, CALL LIGHT WITHIN REACH, SKIN TREATMENTS AND DRESSING CHANGE DONE, TURNED AND REPOSITIONED Q2 HRS, SON DONNA VISITED PT, PLAN OF CARE EXPLAINED, VERBALIZED UNDERSTANDING, PM CARE DONE, F/C IN PLACE AND DRAINING WELL, ALL NEEDS ATTENDED.
--- NOTE | 2016-10-02 19:30 | NUR ---
TELE/RN NOTES RECEIVED PT. LYING IN BED RESTING. PT. IS EASILY AROUSABLE TO NAME AND TOUCH. PT. WITH SHILEY #8 TRACH PRESENT AND INTACT ON COOL AEROSAL. BREATHING EVEN AND UNLABORED NO RESPIRATORY DISTRESS OR SOB NOTED. NO S/S OF PAIN NOTED. PT. WITH EXTERNAL FUNCTIONAL ANALYST PRESENT AND INTACT. CURRENT RHYTHM = SINUS CANDICE HR 52. PER DAYSHIFT NURSE PT. FAILED SWALLOW EVAL TODAY AND THEY WILL FOLLOW UP TOMORROW. PT. WITH LEFT UPPER ARM PICC LINE PRESENT, PATENT AND INTACT ADMINISTERING TO PT. D5 1/2 NS @ 50ML/HR. PT. WITH RIGHT UPPER ARM MIDLINE PRESENT, PATENT AND INTACT. PT. WITH BRO CATHETER PRESENT, PATENT AND INTACT DRAINING CLEAR YELLOW URINE. BED IN LOWEST POSITION, CALL LIGHT WITHIN REACH, WILL CONTINUE TO MONITOR.
[2016-10-02 20:00] VITALS: BP 142/51
[2016-10-02] MEDS: ENOXAPARIN SODIUM 40 MG/0.4 ML DISP.SYRIN SQ SCH (21:31)
[2016-10-03] VITALS: BP 128/56
[2016-10-03] MEDS ORDERED: IV D5/0.45 NACL 1,000 ML IV ONE (02:55)
[2016-10-03] MEDS: ALBUTEROL FS 2.5 MG/3 ML VIAL.NEB NEB SCH ×6 (03:35→23:44)
[2016-10-03] MEDS: IPRATROPIUM NEB FS 0.5 MG/2.5 ML AMPUL.NEB NEB SCH ×6 (03:35→23:44)
[2016-10-03] MEDS: IV D5/0.45 NACL 1,000 ML IV PRN (03:48)
[2016-10-03] MEDS: PIPERACILLIN /TAZOBACTAM 3.375 G in IV D5W 50 ML IV SCH ×4 (05:53→22:36)
--- NOTE | 2016-10-03 06:55 | NUR ---
TELE/RN NOTES PT. LYING IN BED RESTING. PT. WITH SHILEY #8 TRACH PRESENT AND INTACT ON COOL AEROSAL. BREATHING EVEN AND UNLABORED NO RESPIRATORY DISTRESS OR SOB NOTED. NO S/S OF PAIN NOTED. PT. WITH EXTERNAL LOSS CLAIM CLERK PRESENT AND INTACT. CURRENT RHYTHM = SINUS CANDICE HR 58. PT. WITH LEFT UPPER ARM PICC LINE PRESENT, PATENT AND INTACT ADMINISTERING TO PT. D5 1/2 NS @ 50ML/HR. PT. WITH RIGHT UPPER ARM MIDLINE PRESENT, PATENT AND INTACT. PT. WITH BRO CATHETER PRESENT, PATENT AND INTACT DRAINING CLEAR YELLOW URINE. ALL PT. NEEDS MET. PT. OFFLOADED. TURNED AND REPOSITIONED Q2H AND NEEDED. BED IN LOWEST POSITION, CALL LIGHT WITHIN REACH, WILL ENDORSE TO DAYSHIFT NURSE FOR CONTINUITY OF CARE.
[2016-10-03 07:25] LABS: EOSINOPHILS # (AUTO) 0.1 /CMM (0.0-0.7); EOSINOPHILS % (AUTO) 0.6 % (0.0-6.0); HEMATOCRIT 30 % (39-51); HEMOGLOBIN 10.1 g/dL (13.5-17.5); LYMPHOCYTES # (AUTO) 0.6 /CMM (0.8-4.8); MEAN CORPUSCULAR HEMOGLOBIN 29 PG (26.0-33.0); MEAN CORPUSCULAR HGB CONC 33 g/dl (31.0-36.0); MEAN CORPUSCULAR VOLUME 88 fL (80-96); MONOCYTES # (AUTO) 0.4 /CMM (0.1-1.30); MONOCYTES % (AUTO) 4.2 % (2.0-12.0); NEUTROPHILS % (AUTO) 88.2 % (43.0-81.0); PLATELET COUNT (AUTO) 201 /CMM (150-450); RED BLOOD CELL COUNT(AUTO) 3.42 MIL/uL (4.5-6.0)
--- NOTE | 2016-10-03 07:30 | NUR ---
OWNER NOTES PT IN BED, ASLEEP, EASY TO AROUSE, ALERT AND ORIENTED, NO COMPLAINT OF PAIN, BREATHING PATTERN NORMAL AND NON LABORED, ON COOL AEROSOL, F/C INTACT AND PATENT, DRAINING WELL, IV FLUIDS INFUSING WELL.
[2016-10-03 07:58] LABS: CALCIUM, SERUM 7.7 mg/dL (8.5-10.1); CREATININE 0.6 mg/dL (0.6-1.3); MAGNESIUM 1.9 mg/dL (1.8-2.4); POTASSIUM 3.3 mmol/L (3.5-5.1)
[2016-10-03 08:18] VITALS: BP 119/75
[2016-10-03] MEDS: PANTOPRAZOLE 40 MG VIAL IV SCH (08:57)
[2016-10-03] MEDS: methylPREDNISolone SOD SUCC 125 MG/2ML VIAL IV SCH (08:57)
[2016-10-03] MEDS: POLYVINYL ALCOHOL 15 ML BOTTLE EACHEYE SCH ×3 (08:58→17:07)
[2016-10-03] MEDS: UREA 10% -AHA 4% CREAM 57 GM TUBE TP SCH ×2 (08:58→21:04)
[2016-10-03] MEDS: Z GUARD REMEDY 2 OZ OINT TP SCH ×2 (08:58→21:03)
[2016-10-03 12:00] VITALS: BP 139/71
[2016-10-03] MEDS ORDERED: SECONDARY IV SET 1 EA INFUS.SET MC ONE ×2 (12:50→18:00)
[2016-10-03] MEDS: POTASSIUM CL. PREMIX PERIPHER. 50 ML IV SCH ×2 (12:56→14:02)
--- NOTE | 2016-10-03 13:04 | NUR ---
DATABASES COMPUTER CONSULTANT NOTES PT IN BED, RESTING, EASY TO AROUSE, ALERT, PT SEEN BY SPEECH THERAPIST, ALSO SEEN BY DR. LUO AND DIANE, SALES ACCOUNT DIRECTOR, ORDERS NOTED AND CARRIED OUT, SKIN TREATMENTS DONE, TURNED AND REPOSITIONED Q2 HRS.
[2016-10-03] MEDS ORDERED: Sodium Phosphate 15 MMOL in IV D5W 250 ML IV ONE (14:00)
[2016-10-03 16:00] VITALS: BP 146/70
--- NOTE | 2016-10-03 19:00 | NUR ---
COMMUNICATIONS MANAGER NOTES PT IN BED, RESTING, ALERT AND ORIENTED, NO COMPLAINT OF PAIN, IV FLUID INFUSING WELL, PM CARE RENDERED, TURNED AND REPOSITIONED Q2 HRS, KEPT CLEAN, DRY AND COMFORTABLE.
[2016-10-03 20:00] VITALS: BP 131/67
[2016-10-03] MEDS ORDERED: IV SET PRIMARY PUMP SET 1 EA INFUS.SET MC ONE (20:15)
[2016-10-03] MEDS: ENOXAPARIN SODIUM 40 MG/0.4 ML DISP.SYRIN SQ SCH (21:02)
--- NOTE | 2016-10-03 22:00 | NUR ---
RN NOTE; RECEIVED PT IN ED AWAKE. BREATHING EVENLY. NO SOB. NO DISTRESS. SKIN WARM AND DRY. NO S/S OF PAIN OR DISCOMFORT. TRACH IN PLACE. W/ MINIMAL BLEEDING AROUND THE [place] SITE. NO S/S OF RESP. DISTRESS. WILL CONT TO MONITOR.
--- NOTE | 2016-10-03 22:55 | NUR ---
pt with thick secretions coming out from the trache, refused suctioning by rt and rn, cleaned trache site , noted with crusted blood around the stitches, mucous plugs from the trache site removed and cleaned well.no acute distress,sinus devyn on monitor.
[2016-10-04] VITALS (7 sets, daily range): BP systolic 108–143; BP diastolic 59–82
[2016-10-04] MEDS: IPRATROPIUM NEB FS 0.5 MG/2.5 ML AMPUL.NEB NEB SCH ×6 (02:55→22:55)
[2016-10-04] MEDS: ALBUTEROL FS 2.5 MG/3 ML VIAL.NEB NEB SCH ×6 (02:56→22:55)
[2016-10-04] MEDS: PIPERACILLIN /TAZOBACTAM 3.375 G in IV D5W 50 ML IV SCH ×4 (05:08→22:20)
--- NOTE | 2016-10-04 06:35 | NUR ---
RNN OTE; PT IN BED AWAKE AND ALERT. BREATHING EVENLY. TRACH IN PLACE. NAD. SKIN WARM AND DRY. F/C IN PLACE. DRAINING CLEAR YELLOW URINE. NO C/O PAIN OR DISCOMFORT. NEEDS ATTENDED. CLEANED AND DRIED. REPOSITIONED ROUTINELY. GOOD SKIN CARE RENDERED. CALL LIGHT WITHIN REACH. WILL CONT TO MONITOR AND WILL ENDORSE TO AM SHIFT FOR AMANDA.
[2016-10-04 08:06] LABS: CALCIUM, SERUM 7.8 mg/dL (8.5-10.1); CREATININE 0.6 mg/dL (0.6-1.3); PHOSPHORUS 2.3 mg/dL (2.5-4.9); POTASSIUM 3.2 mmol/L (3.5-5.1)
[2016-10-04] MEDS: methylPREDNISolone SOD SUCC 125 MG/2ML VIAL IV SCH (08:36)
[2016-10-04] MEDS: PANTOPRAZOLE 40 MG VIAL IV SCH (08:36)
[2016-10-04] MEDS: POLYVINYL ALCOHOL 15 ML BOTTLE EACHEYE SCH ×3 (08:40→16:18)
[2016-10-04] MEDS: UREA 10% -AHA 4% CREAM 57 GM TUBE TP SCH ×2 (08:41→21:34)
[2016-10-04] MEDS: Z GUARD REMEDY 2 OZ OINT TP SCH ×2 (08:41→21:34)
[2016-10-04] MEDS ORDERED: PLATELET IV SET 1 EA INFUS.SET MC ONE (10:36)
[2016-10-04] MEDS: POTASSIUM CL. PREMIX PERIPHER. 50 ML IV SCH ×4 (10:56→14:08)
[2016-10-04] MEDS ORDERED: Sodium Phosphate 15 MMOL in IV D5W 250 ML IV ONE (14:00)
--- NOTE | 2016-10-04 16:10 | NUR ---
MS/RN: NOTES Left message to Dr. Dorman ([phone]) regarding follow up with revisualize upper airway per Dr. Kyle.
--- NOTE | 2016-10-04 18:06 | NUR ---
MS/NR: notes patient reassessed per Medical / Surgical protocol, no acute change noted during the shift. Please see completed data in flowsheets. Adequate oxygenation on 8 liter cool aerosol, no s/s of any respiratory distress noted, saturation > 95%,prn suctioning done. patient denies pain, vss, afebrile. adequate urine output, no BM noted during the shift. patient turned and positioned q2h and prn. Wound care done as ordered. Electrolytes replace.ST eval done, possible Trach capping as tolerated tomorrow per Dr. Kyle. Will continue to monitor closely and intervene as appropriate.
--- NOTE | 2016-10-04 19:15 | NUR ---
SENIOR PROJECT ENGINEER NOTE RECEIVED PATIENT FROM DAY SHIFT, PATIENT IS ALERT AND ORIENTEDX1, ON T PIECE TRACH WITH AEROSOL. NO S/S OF RESPIRATORY DISTRESS AND NO FACIAL GRIMACE NOTED. BRO CATH PRESENT WITH RACHEL CLEAR URINE. MID LINE ON RIGHT UPPER ARM AND LEFT UPPER AND PICC LINE ARE INTACT AND PATENT, D51/2NS IS RUNNING. TELE MONITOR SB 52. SRX2, BED IN LOW POSITION, CALL LIGHT WITHIN REACH, WILL CONTINUE TO MONITOR PATIENT.
[2016-10-04] MEDS: ENOXAPARIN SODIUM 40 MG/0.4 ML DISP.SYRIN SQ SCH (21:33)
[2016-10-05] VITALS: BP 142/78
[2016-10-05] MEDS: ALBUTEROL FS 2.5 MG/3 ML VIAL.NEB NEB SCH ×6 (03:45→23:54)
[2016-10-05] MEDS: IPRATROPIUM NEB FS 0.5 MG/2.5 ML AMPUL.NEB NEB SCH ×6 (03:45→23:54)
[2016-10-05 04:00] VITALS: BP 160/75
[2016-10-05] MEDS: PIPERACILLIN /TAZOBACTAM 3.375 G in IV D5W 50 ML IV SCH ×4 (04:32→23:14)
[2016-10-05] MEDS: IV D5/0.45 NACL 1,000 ML IV PRN (04:32)
--- NOTE | 2016-10-05 06:48 | NUR ---
EARLY CHILDHOOD SPECIAL EDUCATOR NOTE PATIENT IS RESTING IN BED COMFORTABLY, NO S/S OF RESPIRATORY DISTRESS AND NO FACIAL GRIMACE NOTED. RIGHT UPPER MID LINE AND LEFT UPPER ARM PICC LINE ARE PATENT AND INTACT, FLUID IS RUNNING. MORNING CARE RENDERED. WILL ENDORSE TO DAY SHIFT FOR AMANDA.
[2016-10-05 06:58] VITALS: BP 129/57
[2016-10-05 07:10] LABS: CALCIUM, SERUM 8.1 mg/dL (8.5-10.1); CREATININE 0.7 mg/dL (0.6-1.3); POTASSIUM 3.4 mmol/L (3.5-5.1)
--- NOTE | 2016-10-05 07:10 | NUR ---
TELE/RN OPENING NOTES RECEIVED PATIENT IN BED AWAKE, ALERT AND FOLLOWS SIMPLE COMMANDS. NO SIGNS OF PAIN OR DISCOMFORTS OBSERVED. ON TELE-MONITORING WITH CURRENT READING OF SINUS CANDICE WITH PAC'S AND HR 51. ON AEROSOL T-PIECE, TOLERATING WELL WITH NO ACUTE RESPIRATORY DISTRESS NOTED. WITH PICC LINE ON IVAN AND JENNY MIDLINE INTACT AND PATENT WITH D51/2 NS INFUSING WELL. BRO IN PLACE AND ACTIVELY DRAINING CLEAR YELLOW URINE TO DRAINAGE BAG. BED IN LOWEST POSITION, LOCKED AND SIDE-RAILS UP APPROPRIATE. CALL LIGHT WITHIN REACH. ALL SAFETY MEASURES MAINTAINED. WILL CONTINUE TO MONITOR ACCORDINGLY
[2016-10-05 07:17] LABS: INR 1.21 (0.87-1.13); PROTHROMBIN TIME 13.1 SECS (9.5-12.7)
[2016-10-05] MEDS: POLYVINYL ALCOHOL 15 ML BOTTLE EACHEYE SCH ×3 (08:30→17:08)
[2016-10-05] MEDS: PANTOPRAZOLE 40 MG VIAL IV SCH (08:31)
[2016-10-05] MEDS: methylPREDNISolone SOD SUCC 125 MG/2ML VIAL IV SCH (08:31)
[2016-10-05] MEDS: UREA 10% -AHA 4% CREAM 57 GM TUBE TP SCH ×2 (08:32→21:14)
[2016-10-05] MEDS: Z GUARD REMEDY 2 OZ OINT TP SCH ×2 (08:32→21:14)
[2016-10-05] MEDS: POTASSIUM CL. PREMIX PERIPHER. 50 ML IV SCH ×2 (11:08→12:08)
--- NOTE | 2016-10-05 11:08 | NUR ---
RN NOTES PATIENT SEEN AND EVALUATED BY DR. SANTIZO WITH ORDER TO DISCONTINUE TELE-MONITORING. ORDERED CARRIED OUT. PATIENT WITH NO SIGNS OF CHEST PAIN OR DISTRESS. WILL CONTINUE TO MONITOR.
--- NOTE | 2016-10-05 11:10 | NUR ---
RN NOTES PATIENT NOTED WITH LOW POTASSIUM LEVEL 3.4, ANH SAMSON MADE AWARE WITH ORDER TO GIVE K 10MEQ IV X 2BAGS. WILL CONTINUE TO MONITOR.
--- NOTE | 2016-10-05 14:16 | NUR ---
RN NOTES RECEIVED CALL FROM OR NURSE THAT PATIENT IS FOR INSERTION OF PEG TUBE THIS AFTERNOON. CALLED SON AND EXPLAINED PROCEDURE AND VERBALIZED UNDERSTANDING. TELEPHONE CONSENT FOR THE PROCEDURE TAKEN FROM SON DONNA MAHARAJ.
--- NOTE | 2016-10-05 16:20 | NUR ---
RN NOTES PATIENT BROUGHT TO OR AT 1500 VIA HIS BED FOR PEG TUBE INSERTION IN NO ACURE SIGNS OF DISTRESS. CAME BACK TO UNIT AT 1610 WITH PEG TUBE FR#20 MID UPPER ABDOMEN, NO BLEEDING NOTED TO SITE. PHOTO OF SITE TAKEN AND FILED ON CHART. PATIENT WITH ORDER TO START ON FIBERSOURCE AT 35ML/HR. WILL CONTINUE TO MONITOR
[2016-10-05 16:58] VITALS: BP 149/66
[2016-10-05] MEDS ORDERED: NEUTRA PHOS 1 POWD.PACKET NG ONE (17:00)
[2016-10-05] MEDS: FIBERSOURCE HN 1,000 ML BOTTLE GT PRN (17:28)
--- NOTE | 2016-10-05 19:00 | NUR ---
MS/RN CLOSING NOTE PATIENT IN BED ALERT AND ORIENTED X 1, SAME FOLLOWS SIMPLE COMMANDS. ON AEROSOL T-PIECE, TOLERATING WELL WITH NO SOB NOTED. NPO WITH PEG TUBE INTACT AND PATENT, FEEDING OF FIBERSOURCE AT 35ML/HR IN PROGRESS AND TOLERATING WELL. ASPIRATION PRECAUTIONS MAINTAINED. PICC LINE ON IVAN AND JENNY MIDLINE INTACT AND PATENT WITH D51/2 NS INFUSING WELL. BRO IN PLACE AND ACTIVELY DRAINING CLEAR YELLOW URINE TO DRAINAGE BAG. BED IN LOWEST POSITION, LOCKED AND SIDE-RAILS UP APPROPRIATE. CALL LIGHT WITHIN REACH. ALL SAFETY MEASURES MAINTAINED. WILL ENDORSED TO REMOTE SENSING TECHNICIAN NURSE FOR AMANDA.
[2016-10-05 20:00] VITALS: BP 131/68
--- NOTE | 2016-10-05 20:00 | NUR ---
PATIENT IN BED, ALERT AND ORIENTED X1, CALM, NO SOB, NO RESPIRATORY DISTRESS, WITH TRACH ON COOL AEROSOL, ABLE TO FOLLOW SIMPLE COMMANDS, NOT IN APPARENT PAIN, NO FACIAL GRIMACING, NO RESTLESSNESS, LEFT UPPER ARM MIDLINE IS PATENT, LEFT UPPER ARM PICC LINE IS PATENT, WITH CLEAN DRESSING. S/P PEG TUBE PLACEMENT TODAY, POSITIVE PLACEMENT PER AUSCULTATION, GT FEEDING TOLERATED WELL, NO ABDOMINAL DISTENTION, NO VOMITING. BRO CATHETER DRAINING WELL OF YELLOW URINE, KEPT HOB ELEVATED, KEPT SAFE AND COMFORTABLE, CALL LIGHT WITHIN REACH.
--- NOTE | 2016-10-05 20:04 | NUR ---
GT FEEDING WILL START AT 2210 PER ORDER
[2016-10-05] MEDS: ENOXAPARIN SODIUM 40 MG/0.4 ML DISP.SYRIN SQ SCH (21:17)
[2016-10-05] MEDS: BACITRACIN ZINC OINT (15 GM) 15 GM TUBE TP SCH (21:18)
[2016-10-05] MEDS: HYDROGEN PEROXIDE 480 ML BOTTLE TP SCH (21:18)
--- NOTE | 2016-10-06 | NUR ---
PATIENT IS RESTING COMFORTABLY, NO DISTRESS, NO SOB, GT FEEDING TOLERATED WELL, NO VOMITING, NO ABDOMINAL DISTENTION, NO RESIDUAL, ON ASPIRATION PRECAUTION, WILL CONTINUE TO MONITOR.
[2016-10-06] MEDS: ALBUTEROL FS 2.5 MG/3 ML VIAL.NEB NEB SCH ×6 (03:24→23:25)
[2016-10-06] MEDS: IPRATROPIUM NEB FS 0.5 MG/2.5 ML AMPUL.NEB NEB SCH ×6 (03:25→23:25)
[2016-10-06] MEDS: PIPERACILLIN /TAZOBACTAM 3.375 G in IV D5W 50 ML IV SCH ×4 (04:18→22:45)
[2016-10-06] MEDS: IV D5/0.45 NACL 1,000 ML IV PRN (06:46)
--- NOTE | 2016-10-06 06:50 | NUR ---
PATIENT IS ALERT AND AWAKE, NO RESPIRATORY DISTRESS, ON COOL AEROSOL VIA TRACH, SUCTION RENDERED DURING SHIFT, G TUBE FEEDING TOLERATED WELL, NO RESIDUAL, NO VOMITING, NO ABDOMINAL DISTENTION, PEG TUBE SITE CARE RENDERED, PROVIDED GOOD PERINEAL CARE, WOUND CARE PERFORMED, BRO CATHETER DRAINING WELL, KEPT SAFE AND COMFORTABLE, CALL LIGHT WITHIN REACH.
[2016-10-06 08:00] VITALS: BP 130/68
--- NOTE | 2016-10-06 08:00 | NUR ---
ms rn received on bed, awake,alert,oriented x3,. not in any form of distress. all needs attended.
[2016-10-06 08:01] LABS: BASOPHILS % (AUTO) 0.4 % (0.0-2.0); EOSINOPHILS % (AUTO) 0.1 % (0.0-6.0); HEMATOCRIT 31 % (39-51); HEMOGLOBIN 10.2 g/dL (13.5-17.5); LYMPHOCYTES # (AUTO) 0.8 /CMM (0.8-4.8); LYMPHOCYTES % (AUTO) 9.8 % (20.0-44.0); MEAN CORPUSCULAR HEMOGLOBIN 29 PG (26.0-33.0); MEAN CORPUSCULAR HGB CONC 33 g/dl (31.0-36.0); MEAN CORPUSCULAR VOLUME 89 fL (80-96); MONOCYTES # (AUTO) 0.4 /CMM (0.1-1.30); MONOCYTES % (AUTO) 5.3 % (2.0-12.0); NEUTROPHILS # (AUTO) 7.1 /CMM (1.8-8.9); NEUTROPHILS % (AUTO) 84.4 % (43.0-81.0); PLATELET COUNT (AUTO) 202 /CMM (150-450); RDW COEFFICIENT OF VARIATION 19.1 (11.5-15.0); WHITE BLOOD COUNT (AUTO) 8.4 K/uL (4.3-11.0)
[2016-10-06 08:21] LABS: CALCIUM, SERUM 8.2 mg/dL (8.5-10.1); CREATININE 0.6 mg/dL (0.6-1.3); PHOSPHORUS 1.8 mg/dL (2.5-4.9); POTASSIUM 3.3 mmol/L (3.5-5.1)
[2016-10-06] MEDS ORDERED: Nutritional Supplement/Fiber GT (08:35)
[2016-10-06] MEDS ORDERED: BACI15OI TP (08:35)
[2016-10-06] MEDS ORDERED: [UNRECOGNIZED DRUG - CODE] TP (08:35)
[2016-10-06] MEDS ORDERED: PANT40VI IV (08:35)
[2016-10-06] MEDS ORDERED: Methylprednisolone Sod Succ IV (08:35)
[2016-10-06] MEDS ORDERED: ENOX40DI SQ (08:35)
[2016-10-06] MEDS ORDERED: ALBUT2 NEB (08:35)
[2016-10-06] MEDS ORDERED: UREA57CR TP (08:35)
--- NOTE | 2016-10-06 09:20 | NUR ---
ms khanna due meds given tolerated well via gtube,
[2016-10-06] MEDS: PANTOPRAZOLE 40 MG VIAL IV SCH (09:23)
[2016-10-06] MEDS: methylPREDNISolone SOD SUCC 125 MG/2ML VIAL IV SCH (09:23)
[2016-10-06] MEDS: BACITRACIN ZINC OINT (15 GM) 15 GM TUBE TP SCH ×2 (09:24→17:38)
[2016-10-06] MEDS: UREA 10% -AHA 4% CREAM 57 GM TUBE TP SCH ×2 (09:24→22:29)
[2016-10-06] MEDS: POLYVINYL ALCOHOL 15 ML BOTTLE EACHEYE SCH ×3 (09:24→17:38)
[2016-10-06] MEDS: Z GUARD REMEDY 2 OZ OINT TP SCH ×2 (09:24→22:28)
[2016-10-06] MEDS: HYDROGEN PEROXIDE 480 ML BOTTLE TP SCH ×2 (09:25→22:27)
[2016-10-06] MEDS ORDERED: POTASSIUM CHLORIDE 20 MEQ TAB.PRT.SR PO ONE (10:30)
[2016-10-06] MEDS ORDERED: Magnesium 1GM/D5W 100ML PREMIX 100 ML IV SCH (10:30)
--- NOTE | 2016-10-06 11:00 | NUR ---
ms clemencia was seen by lucille galvan, with orders made and carried out.
--- NOTE | 2016-10-06 12:00 | NUR ---
ms rn was seen by mechanical commissioning engineer w/ recommendation to increase gt rate up to 60ml/hr.
--- NOTE | 2016-10-06 12:30 | NUR ---
ms rn gt feeding rate increased to 50ml/hr tolerated well.
[2016-10-06] MEDS ORDERED: SECONDARY IV SET 1 EA INFUS.SET MC ONE (13:06)
[2016-10-06 16:00] VITALS: BP 124/72
[2016-10-06] MEDS ORDERED: K PHOS NEUTRAL 250 MG TABLET PO ONE (17:00)
--- NOTE | 2016-10-06 18:00 | NUR ---
ms rn gt feeding rate increased to 60ml/hour.
--- NOTE | 2016-10-06 18:52 | NUR ---
ms rn on bed, no distress noted,all needs attended.
--- NOTE | 2016-10-06 19:50 | NUR ---
MS/RN OPENING NOTES PATIENT IN BED AWAKE, ALERTX1. CAN RESPOND WITH NOD. NO S/S OF SOB OR DISTRESS. ON COOL AEROSOL, TRAECH. ON GTUBE FEEDIN RUNNING AT 60CC/HR WILL MONITOR FOR ANY RESIDUAL , ON BRO CATHETER W/ URINE OUTPUT 50CC AT START OF CARE. WILL CONTINUE CARE. MONITOR PATIENT. AND PROVIDE NEEDS.
[2016-10-06 20:00] VITALS: BP 139/64
[2016-10-06] MEDS: ENOXAPARIN SODIUM 40 MG/0.4 ML DISP.SYRIN SQ SCH (22:28)
[2016-10-07] MEDS: FIBERSOURCE HN 1,000 ML BOTTLE GT PRN (01:41)
[2016-10-07] MEDS: ALBUTEROL FS 2.5 MG/3 ML VIAL.NEB NEB SCH ×6 (03:19→23:14)
[2016-10-07] MEDS: IPRATROPIUM NEB FS 0.5 MG/2.5 ML AMPUL.NEB NEB SCH ×6 (03:19→23:13)
[2016-10-07] MEDS: PIPERACILLIN /TAZOBACTAM 3.375 G in IV D5W 50 ML IV SCH ×4 (04:12→23:10)
--- NOTE | 2016-10-07 06:56 | NUR ---
MS/RN CLOSING NOTES PATIENT IN BED, HOB ELEVATED. REPOSITIONED FOR COMFORT. NO S/S OF SOB OR DISTRESS. ATTEND TO NEEDS AT ALL TIMES.ASSIST WITH T PIECE, COOL AEROSOL, BRO , ON GTUBE FEEDING TOLERATES 60CC.HR W/ NO RESIDUAL. MIDLINE ON JENNY AND PICC IVAN, WILL ENDORSE TO AM RN FOR CONTINUITY OF CARE. CALL LIGHTS WITHIN REACH.
[2016-10-07 07:34] LABS: EOSINOPHILS % (AUTO) 0.1 % (0.0-6.0); HEMATOCRIT 31 % (39-51); LYMPHOCYTES # (AUTO) 0.5 /CMM (0.8-4.8); MEAN CORPUSCULAR HEMOGLOBIN 29 PG (26.0-33.0); MEAN CORPUSCULAR HGB CONC 32 g/dl (31.0-36.0); MEAN CORPUSCULAR VOLUME 89 fL (80-96); MONOCYTES # (AUTO) 0.3 /CMM (0.1-1.30); MONOCYTES % (AUTO) 3.7 % (2.0-12.0); NEUTROPHILS # (AUTO) 6.6 /CMM (1.8-8.9); NEUTROPHILS % (AUTO) 89.2 % (43.0-81.0); PLATELET COUNT (AUTO) 158 /CMM (150-450); RDW COEFFICIENT OF VARIATION 18.7 (11.5-15.0); RED BLOOD CELL COUNT(AUTO) 3.49 MIL/uL (4.5-6.0); WHITE BLOOD COUNT (AUTO) 7.4 K/uL (4.3-11.0)
[2016-10-07 07:46] LABS: CALCIUM, SERUM 7.9 mg/dL (8.5-10.1); CREATININE 0.7 mg/dL (0.6-1.3); MAGNESIUM 1.8 mg/dL (1.8-2.4); PHOSPHORUS 1.2 mg/dL (2.5-4.9); POTASSIUM 3.6 mmol/L (3.5-5.1)
--- NOTE | 2016-10-07 07:59 | NUR ---
AM RN NOTES RECEIVED PT IN STABLE CONDITION, NO SOB OR DISTRESS NOTED, GTF RUNNING WELL, NO N/V NOTED, HOB ELEVATED, WILL MONITOR.
[2016-10-07 08:00] VITALS: BP 126/66
[2016-10-07] MEDS: PANTOPRAZOLE 40 MG VIAL IV SCH (08:21)
[2016-10-07] MEDS: POLYVINYL ALCOHOL 15 ML BOTTLE EACHEYE SCH ×3 (08:21→16:27)
[2016-10-07] MEDS: methylPREDNISolone SOD SUCC 125 MG/2ML VIAL IV SCH (08:21)
[2016-10-07] MEDS: BACITRACIN ZINC OINT (15 GM) 15 GM TUBE TP SCH ×2 (08:21→16:27)
[2016-10-07] MEDS: UREA 10% -AHA 4% CREAM 57 GM TUBE TP SCH ×2 (08:22→20:43)
[2016-10-07] MEDS: HYDROGEN PEROXIDE 480 ML BOTTLE TP SCH ×2 (08:22→20:43)
[2016-10-07] MEDS: Z GUARD REMEDY 2 OZ OINT TP SCH ×2 (08:23→20:44)
[2016-10-07] MEDS ORDERED: K PHOS NEUTRAL 250 MG TABLET PO ONE (14:00)
[2016-10-07 16:00] VITALS: BP 148/70
[2016-10-07] MEDS ORDERED: IV NS 0.9% 250 ML IV ONE (17:36)
--- NOTE | 2016-10-07 18:08 | NUR ---
PT IN STABLE CONDITION, NO SOB OR DISTRESS NOTED, AWAKE, ABLE TO MAKE HIS NEEDS KNOWN WITH GESTURES, NO PAIN NOTED, REPOSITIONED Q2 HR AND PRN FOR COMFORT AND PRESSURE REDUCTION, GT SITE CLEAN AND TOLERATES WELL TO FEEDING, COOL AEROSOL IN PLACE AND TOLERATES WELL, WILL INDORSE TO NEXT SHIFT FOR AMANDA.
--- NOTE | 2016-10-07 19:15 | NUR ---
MS/RN OPENING NOTES PT AWAKE, FAMILY AT BEDSIDE. ON COOL AEROSOL VIA T PIECE AT 8LPM. TOLERATING WELL. NO S/S OF DISTRESS NOTED. DENIES PAIN AT THIS TIME. BRO IN PLACE AND DRAINING WELL. GT FEEDING RUNNING FIBERSOURCE AT 35ML/HR. JENNY MIDLINE AND IVAN PICC LINE PATENT AND INTACT. BED IN LOW/LOCKED POSITION WITH CALL LIGHT IN REACH. BED RAILS UPX2. WILL CONTINUE TO MONITOR
[2016-10-07 20:00] VITALS: BP 145/67
[2016-10-07] MEDS: ENOXAPARIN SODIUM 40 MG/0.4 ML DISP.SYRIN SQ SCH (20:45)
[2016-10-08] MEDS: FIBERSOURCE HN 1,000 ML BOTTLE GT PRN (01:25)
--- NOTE | 2016-10-08 02:30 | NUR ---
MS/RN NOTES PT SLEEPING INTERMITTENTLY THROUGHOUT THE NIGHT. BREATHING EVEN AND UNLABORED. SUCTIONED PRN. WILL CONTINUE TO MONITOR
[2016-10-08] MEDS: ALBUTEROL FS 2.5 MG/3 ML VIAL.NEB NEB SCH ×6 (03:03→23:19)
[2016-10-08] MEDS: IPRATROPIUM NEB FS 0.5 MG/2.5 ML AMPUL.NEB NEB SCH ×6 (03:03→23:19)
[2016-10-08] MEDS: PIPERACILLIN /TAZOBACTAM 3.375 G in IV D5W 50 ML IV SCH ×4 (05:07→23:25)
[2016-10-08 06:57] LABS: BASOPHILS % (AUTO) 0.2 % (0.0-2.0); EOSINOPHILS # (AUTO) 0.1 /CMM (0.0-0.7); EOSINOPHILS % (AUTO) 1.1 % (0.0-6.0); HEMATOCRIT 30 % (39-51); HEMOGLOBIN 9.8 g/dL (13.5-17.5); LYMPHOCYTES # (AUTO) 0.6 /CMM (0.8-4.8); LYMPHOCYTES % (AUTO) 9.4 % (20.0-44.0); MEAN CORPUSCULAR HEMOGLOBIN 29 PG (26.0-33.0); MEAN CORPUSCULAR HGB CONC 33 g/dl (31.0-36.0); MEAN CORPUSCULAR VOLUME 89 fL (80-96); MONOCYTES # (AUTO) 0.3 /CMM (0.1-1.30); MONOCYTES % (AUTO) 4.4 % (2.0-12.0); NEUTROPHILS # (AUTO) 5.9 /CMM (1.8-8.9); NEUTROPHILS % (AUTO) 84.9 % (43.0-81.0); PLATELET COUNT (AUTO) 137 /CMM (150-450); RDW COEFFICIENT OF VARIATION 19.5 (11.5-15.0); RED BLOOD CELL COUNT(AUTO) 3.38 MIL/uL (4.5-6.0); WHITE BLOOD COUNT (AUTO) 6.9 K/uL (4.3-11.0)
--- NOTE | 2016-10-08 06:59 | NUR ---
MS/RN CLOSING NOTES PT ASLEEP, EASILY AROUSABLE TO NAME/TOUCH. ON COOL AEROSOL VIA T PIECE AT 8LPM O2. BREATHING EVEN AND UNLABORED. SUCTIONED PRN. NO S/S OF DISTRESS OR PAIN NOTED. IVAN PICC LINE AND JENNY MIDLINE PATENT AND INTACT. GT SITE REMAINS CLEAN DRY AND INTACT, RUNNING FIBERSOURCE AT 35ML/HR. NO RESIDUAL NOTED. PT TOLERATING WELL. EXTREMITIES OFFLOADED, SKIN CARE PROVIDED. ALL NEEDS MET AND ATTENDED TO. TURNED/REPOSITIONED Q2H AND PRN. BED IN LOW/LOCKED POSITION WITH CALL LIGHT IN REACH. BED RAILS UPX2. WILL ENDORSE TO AM SHIFT AMANDA.
[2016-10-08 07:24] LABS: CALCIUM, SERUM 7.8 mg/dL (8.5-10.1); CREATININE 0.6 mg/dL (0.6-1.3); MAGNESIUM 1.7 mg/dL (1.8-2.4); PHOSPHORUS 1.5 mg/dL (2.5-4.9); POTASSIUM 3.6 mmol/L (3.5-5.1)
--- NOTE | 2016-10-08 07:35 | NUR ---
AM RN NOTES RECEIVED PT IN STABLE CONDITION, SLEEPING EASY TO AWAKE, NO SOB OR DISTRESS NOTED, NO S/S OF PAIN , HOB ELEVATED, WILL MONITOR.
[2016-10-08 08:00] VITALS: BP 128/67
[2016-10-08] MEDS: POLYVINYL ALCOHOL 15 ML BOTTLE EACHEYE SCH ×3 (08:43→16:19)
[2016-10-08] MEDS: methylPREDNISolone SOD SUCC 125 MG/2ML VIAL IV SCH (08:43)
[2016-10-08] MEDS: PANTOPRAZOLE 40 MG VIAL IV SCH (08:43)
[2016-10-08] MEDS: BACITRACIN ZINC OINT (15 GM) 15 GM TUBE TP SCH ×2 (08:44→16:18)
[2016-10-08] MEDS: UREA 10% -AHA 4% CREAM 57 GM TUBE TP SCH ×2 (08:44→21:14)
[2016-10-08] MEDS: Z GUARD REMEDY 2 OZ OINT TP SCH ×2 (08:44→21:13)
[2016-10-08] MEDS: HYDROGEN PEROXIDE 480 ML BOTTLE TP SCH ×2 (08:45→21:13)
--- NOTE | 2016-10-08 09:35 | NUR ---
PICC LINE MID LINE DRESSING CHANGE DONE PER PROTOCOL.
[2016-10-08] MEDS ORDERED: SECONDARY IV SET 1 EA INFUS.SET MC ONE (11:50)
[2016-10-08] MEDS: Magnesium 1GM/D5W 100ML PREMIX 100 ML IV SCH ×2 (11:54→12:51)
[2016-10-08] MEDS ORDERED: NEUTRA PHOS 1 POWD.PACKET NG ONE (13:00)
[2016-10-08 16:00] VITALS: BP 140/75
--- NOTE | 2016-10-08 18:16 | NUR ---
PT IN STABLE CONDITION, TOLERATES WELL TO GTF, HOB ELEVATED, NO SOB OR DISTRESS NOTED, REPOSITIONED PER PROTOCOL, KEPT CLEAN AND DRY, WILL INDORSE TO NEXT SHIFT FOR AMANDA.
--- NOTE | 2016-10-08 19:15 | NUR ---
MS/RN OPENING NOTES PT AWAKE, ON 8LPM COOL AEROSOL VIA T PIECE. NO SIGNS OF DISTRESSED NOTED. DENIES PAIN. BRO IN PLACE DRAINING CLEAR YELLOW URINE. GT FEEDING RUNNING AT 35ML/HR. JENNY MIDLINE AND IVAN PICC LINE PATENT AND INTACT. BED IN LOW/LOCKED POSITION WITH CALL LIGHT IN REACH. BED RAILS UPX2. WILL CONTINUE TO MONITOR
[2016-10-08 20:00] VITALS: BP 148/70
[2016-10-08] MEDS: ENOXAPARIN SODIUM 40 MG/0.4 ML DISP.SYRIN SQ SCH (21:15)
--- NOTE | 2016-10-08 21:45 | NUR ---
MS/RN NOTES REPORT GIVEN TO THOMAS WEBER. PICTURES TAKEN AND PUT IN THE CHART. WOUND CARE PROVIDED. PT IN STABLE CONDITION. ENDORSED THE CONTINUITY OF CARE.
[2016-10-09] MEDS: IPRATROPIUM NEB FS 0.5 MG/2.5 ML AMPUL.NEB NEB SCH ×6 (03:21→23:53)
[2016-10-09] MEDS: ALBUTEROL FS 2.5 MG/3 ML VIAL.NEB NEB SCH ×6 (03:21→23:53)
[2016-10-09] MEDS: PIPERACILLIN /TAZOBACTAM 3.375 G in IV D5W 50 ML IV SCH ×2 (05:15→11:46)
[2016-10-09] MEDS: FIBERSOURCE HN 1,000 ML BOTTLE GT PRN (05:29)
[2016-10-09 07:24] LABS: CALCIUM, SERUM 8.3 mg/dL (8.5-10.1); CREATININE 0.6 mg/dL (0.6-1.3); MAGNESIUM 2.2 mg/dL (1.8-2.4); PHOSPHORUS 2.1 mg/dL (2.5-4.9); POTASSIUM 4.1 mmol/L (3.5-5.1)
[2016-10-09 08:00] VITALS: BP 129/65
--- NOTE | 2016-10-09 08:00 | NUR ---
MS RN NOTES PT IS IN BED. PT IS ALERT AND AWARE. PT CURRENTLY ON 8LPM O2 VIA T PIECE. FIBERSOURCE RUNNING AT 35ML/HR. PT IVAN PICC AND JENNY MIDLINE INTACT AND PATENT. PT BRO CATHETER IS INTACT AND PATENT, DRAINING CLEAR YELLOW URINE. NO SOB OR ANY S/S OF DISTRESS NOTED. BED IS IN LOW LOCKED POSITION. WILL CONTINUE TO MONITOR THE PATIENT THROUGHOUT SHIFT.
[2016-10-09] MEDS: PANTOPRAZOLE 40 MG VIAL IV SCH (09:26)
[2016-10-09] MEDS: HYDROGEN PEROXIDE 480 ML BOTTLE TP SCH ×2 (09:26→21:57)
[2016-10-09] MEDS: methylPREDNISolone SOD SUCC 125 MG/2ML VIAL IV SCH (09:27)
[2016-10-09] MEDS: Z GUARD REMEDY 2 OZ OINT TP SCH ×2 (09:28→21:00)
[2016-10-09] MEDS: BACITRACIN ZINC OINT (15 GM) 15 GM TUBE TP SCH ×2 (09:29→16:38)
[2016-10-09] MEDS: POLYVINYL ALCOHOL 15 ML BOTTLE EACHEYE SCH ×3 (09:29→16:38)
[2016-10-09] MEDS: UREA 10% -AHA 4% CREAM 57 GM TUBE TP SCH ×2 (09:30→21:00)
--- NOTE | 2016-10-09 15:45 | NUR ---
PLACED ON TRACH CAPPED ORDERED. PT. LOOKS COMFORTABLE ON 4 LPM O2 FLOW VIA NASAL CANNULA. HR 58 SPO2 100% HR 16 - 18 Addendum: 10/09/16 at 1627 by DARÍO GOINS RT Amended: Links added.
[2016-10-09 16:00] VITALS: BP 152/70
[2016-10-09] MEDS ORDERED: NEUTRA PHOS 1 POWD.PACKET NG ONE (16:00)
--- NOTE | 2016-10-09 18:59 | NUR ---
MS RN NOTES PT CURRENTLY IN BED WATCHING TV. PT IS A/OX2. PT JENNY MIDLINE AND IVAN PICC LINE IS PATENT AND INTACT. PATIENT BRO CATHETER IS PATENT AND INTACT. DRAINING CLEAR YELLOW URINE. ALL NEEDS HAVE BEEN MET. SKIN CARE WAS PROVIDED TO THE PATIENT. PT HAD SECRETIONS AND RECEIVED ORAL SUCTIONING. PT IS STABLE AND RESTING COMFORTABLY. PT TRACH CAPPED AND PT ON NASAL CANNULA 4LPM O2 SATURATION AT 100%. WILL ENDORSE CARE TO PM SHIFT.
--- NOTE | 2016-10-09 19:50 | NUR ---
MS RN NOTE: PATIENT RESTING IN BED, NO ACUTE DISTRESS NOTED. BREATHING EVEN AND UNLABORED, NO SOB NOTED. TRACH CAPPED AND IN PLACE. G-TUBE IN PLACE INFUSING FIBERSOURCE AT 35 ML/HR, WITH NO RESIDUAL. HOB ELEVATED. MIDLINE TO JENNY IN PLACE AND PICC LINE TO IVAN IN PLACE. BED LOCKED AND IN LOWEST POSITION, CALL LIGHT IN REACH. WILL CONTINUE TO MONITOR.
[2016-10-09 20:00] VITALS: BP 158/75
[2016-10-09] MEDS: ENOXAPARIN SODIUM 40 MG/0.4 ML DISP.SYRIN SQ SCH (22:00)
--- NOTE | 2016-10-10 04:30 | NUR ---
MS RN NOTE: PATIENT SLEEPING IN BED, NO ACUTE DISTRESS NOTED. PATIENT WITH TRACH IN PLACE, WITH COOL AEROSOL IN PLACE BY RT. PATIENT CONTINUES TO HAVE THICK YELLOWISH SPUTUM. HOB ELEVATED. BED LOCKED AND IN LOWEST POSITION, CALL LIGHT IN REACH. WILL CONTINUE TO MONITOR.
[2016-10-10] MEDS ORDERED: IV NS 0.9% 250 ML IV ONE (04:34)
--- NOTE | 2016-10-10 06:15 | NUR ---
MS RN NOTE: PATIENT RESTING IN BED, NO ACUTE DISTRESS NOTED. BREATHING EVEN AND UNLABORED, NO SOB NOTED. TRACH IN PLACE, CONNECTED WITH COOL AEROSOL. G-TUBE IN PLACE INFUSING FIBERSOURCE AT 35 ML/HR, WITH NO RESIDUAL. HOB ELEVATED. MIDLINE TO JENNY IN PLACE AND PICC LINE TO IVAN IN PLACE. BED LOCKED AND IN LOWEST POSITION, CALL LIGHT IN REACH. WILL ENDORSE TO DAY NURSE TO CONTINUE WITH PLAN OF CARE.
[2016-10-10 07:06] LABS: CALCIUM, SERUM 8.6 mg/dL (8.5-10.1); CREATININE 0.6 mg/dL (0.6-1.3); PHOSPHORUS 2.6 mg/dL (2.5-4.9)
[2016-10-10] MEDS: ALBUTEROL FS 2.5 MG/3 ML VIAL.NEB NEB SCH ×4 (07:27→15:29)
[2016-10-10] MEDS: IPRATROPIUM NEB FS 0.5 MG/2.5 ML AMPUL.NEB NEB SCH ×4 (07:27→15:29)
[2016-10-10 08:00] VITALS: BP 127/71
--- NOTE | 2016-10-10 08:00 | NUR ---
m/s renewal specialist: initial assessment received pt in bed awake, alert and oriented x 1-2. pt able to mouth words with simple yes/no questions in bengali language. tracheostomy intact and secured at midline with fio2 in use at 35%. turned and repositioned. continue on g-tube feeding of fibersource at 35ml/hr, brayden. well. hob elevated. reality orientation provided prn. picc line to left upper arm intact. pt has a midline to right upper arm. in no apparent distress noted. will continue to monitor.
[2016-10-10] MEDS: methylPREDNISolone SOD SUCC 125 MG/2ML VIAL IV SCH (08:57)
[2016-10-10] MEDS: PANTOPRAZOLE 40 MG VIAL IV SCH (08:57)
--- NOTE | 2016-10-10 10:00 | NUR ---
m/s bookkeeper receptionist: notes resting comfortable in bed. seen and examined by dr. monroy. dr. monroy spoke to respiratory therapist to cap pt as tolerated and to change tracheostomy tube to shiley #6 before discharge to snf. cn aware. pt made aware by kenyan staff translating. will continue to monitor.
[2016-10-10] MEDS: Z GUARD REMEDY 2 OZ OINT TP SCH (11:01)
[2016-10-10] MEDS: UREA 10% -AHA 4% CREAM 57 GM TUBE TP SCH (11:01)
[2016-10-10] MEDS: POLYVINYL ALCOHOL 15 ML BOTTLE EACHEYE SCH ×3 (11:01→17:24)
[2016-10-10] MEDS: HYDROGEN PEROXIDE 480 ML BOTTLE TP SCH (11:01)
[2016-10-10] MEDS: BACITRACIN ZINC OINT (15 GM) 15 GM TUBE TP SCH ×2 (11:02→17:25)
--- NOTE | 2016-10-10 13:00 | NUR ---
M/S FINANCIAL SERVICES AUDITOR: MD VISIT SEEN AND EXAMINED BY DR. MARC WITH ORDER TO D'C TO SNF. ORDER ACKNOWLEDGED. CASE MANAGEMENT TO MAKE ARRANGEMENT. PT FOR TRACHEOSTOMY CHANGE PER DR. LUO (FLASK MAKER). CN AWARE. AWAITING FOR TRACHEOSTOMY CHANGE. WILL CONTINUE TO MONITOR.
--- NOTE | 2016-10-10 14:15 | NUR ---
m/s value stream leader: notes adele (son) notified and made aware re: [facility] address and phone number given to son. awaiting tracheostomy change. case management made arrangement. will continue to monitor.
--- NOTE | 2016-10-10 15:15 | NUR ---
RT NOTES: Trach tube changed to Shiley #6 cuffed per . Pt tolerated trach change well,no respiratory distress noted at this time. Breath sound equal bilateral, able to suction the airway. Emergency trach is at the bedside.
--- NOTE | 2016-10-10 15:15 | NUR ---
m/s fresh work wrapper layer: notes 3 respiratory at bedside and change the tracheostomy tube to shiley #6, pt tolerated procedure. per r.t. no need for capping at this time, snf can start capping when discharge. cn made aware. tracheostomy care, ties, and dressing change by r..t. at bedside after tracheostomy tube changed. will continue to monitor.
--- NOTE | 2016-10-10 15:50 | NUR ---
m/s hide washer: notes report given to alexandria (rn) at [facility] for continuity of care.
[2016-10-10 16:00] VITALS: BP 132/69
[2016-10-10] MEDS ORDERED: PRED20TA GT (16:09)
[2016-10-10] MEDS ORDERED: PANT40TA2 PO (16:09)
--- NOTE | 2016-10-10 16:24 | NUR ---
RN NOTES PICC LINE TO LEFT UPPER ARM REMOVED, TIP NOTED INTACT, NO BLEEDING OR ASE NOTED,LITIGATION CLAIM REPRESENTATIVE WITNESSED REMOVAL.
--- NOTE | 2016-10-10 16:30 | NUR ---
m/s membership correspondent: notes mid line removed with tip intact with no bleeding, redness, and swelling noted.
--- NOTE | 2016-10-10 16:45 | NUR ---
m/s scratcher tender: notes pt unable to sign d'c papers due to cognitive impairment. 2 licensed staff signed all d'c papers. ambulance called for 1730 pick. cn and case management aware. pt made aware. will continue to monitor.
--- NOTE | 2016-10-10 17:08 | NUR ---
m/s meal cook: notes son at bedside at this time and aware of pick at 1730. will continue to monitor.
--- NOTE | 2016-10-10 17:30 | NUR ---
m/s central office installer: notes med response here and report given to one of the crew. no bleeding noted to right and left upper arm, dressing remains intact.
--- NOTE | 2016-10-10 17:48 | NUR ---
m/s ring packer: discharged discharged to snf via ambulance in stable condition with all d'c papers.
[2016-10-10] MEDS ORDERED: ENOXAPARIN SODIUM 40 MG/0.4 ML DISP.SYRIN SQ SCH (21:00)
== END 2016-10-10 17:45 | DRG 4 ==
LOC: ER 16:32 → ICU 19:06 → TELE 09-30 18:43 → MED 10-05 09:47
PROVIDERS: ADMIT Internal Medicine; ATTEND Internal Medicine
PROC: 0BH17EZ Insertion of Endotracheal Airway into Trachea, Via Natural or Artificial Opening (ICD-10-PCS; principal; 2016-09-21)
PROC: 5A1955Z Respiratory Ventilation, Greater than 96 Consecutive Hours (ICD-10-PCS; 2016-09-21)
PROC: 05H533Z Insertion of Infusion Device into Right Subclavian Vein, Percutaneous Approach (ICD-10-PCS; 2016-09-21)
PROC: 02HV33Z Insertion of Infusion Device into Superior Vena Cava, Percutaneous Approach (ICD-10-PCS; 2016-09-23)
PROC: B548ZZA Ultrasonography of Superior Vena Cava, Guidance (ICD-10-PCS; 2016-09-23)
PROC: 0T7D7ZZ Dilation of Urethra, Via Natural or Artificial Opening (ICD-10-PCS; 2016-09-23)
PROC: 0B110F4 Bypass Trachea to Cutaneous with Tracheostomy Device, Open Approach (ICD-10-PCS; 2016-09-28)
PROC: 0CJS8ZZ Inspection of Larynx, Via Natural or Artificial Opening Endoscopic (ICD-10-PCS; 2016-09-28)
PROC: 0DH63UZ Insertion of Feeding Device into Stomach, Percutaneous Approach (ICD-10-PCS; 2016-10-05)
DX: J96.01 Acute respiratory failure with hypoxia (principal); I21.4 Non-ST elevation (NSTEMI) myocardial infarction; J18.9 Pneumonia, unspecified organism; I50.41 Acute combined systolic (congestive) and diastolic (congestive) heart failure; J44.0 Chronic obstructive pulmonary disease with (acute) lower respiratory infection; E87.0 Hyperosmolality and hypernatremia; J44.1 Chronic obstructive pulmonary disease with (acute) exacerbation; J98.11 Atelectasis; I11.0 Hypertensive heart disease with heart failure; E87.5 Hyperkalemia; R00.1 Bradycardia, unspecified; D64.9 Anemia, unspecified; I25.10 Atherosclerotic heart disease of native coronary artery without angina pectoris; D69.2 Other nonthrombocytopenic purpura; E83.51 Hypocalcemia; I25.2 Old myocardial infarction; J38.1 Polyp of vocal cord and larynx; L98.9 Disorder of the skin and subcutaneous tissue, unspecified; M85.80 Other specified disorders of bone density and structure, unspecified site
CPT/HCPCS: 31720; 36415; 36569; 36600; 43246; 71010-TC; 80048-TC; 80053-TC; 80061-TC; 80076-TC; 80202-TC; 82040-TC; 82728-TC; 82803-TC; 82962-TC; 83540-TC; 83605-TC; 83735-TC; 83880; 84100-TC; 84132-TC; 84443-TC; 84478-TC; 84484-TC; 85025-TC; 85610-TC; 85730-TC; 87040-TC; 87081-TC; 92526; 92611-TC; 93307-TC; 94002-TC; 94003-TC; 94640-TC; 94664-TC; 94760-TC; 94762-TC; 94799-TC; 97001-TC; 97530-TC; A4216; A4349; A4606; A4623; A6253; A6402; A6403; A7526; A9563; C1751; C9113; J0330; J1650; J1956; J2270; J2543; J2704; J2930; J3010; J3370; J3475; J3480; J3490; J7030; J7042; J7050; J7060; Z7610

== ENCOUNTER 2017-01-22 15:43 | Emergency (ER) | payer MEDICARE, MEDICAID ==
[~2017-01-22] VITALS: Ht 170.2 cm; Wt 50.3 kg
[~2017-01-22 15:43] MED LIST: ALBUT2 NEB; BACI15OI TP; CLON0.1T PO; ENOX40DI SQ; IPRA3AMP IH; Nutritional Supplement/Fiber GT; ONDA4TAB5 PO; PANT40TA2 PO; POLY15DR57 EACHEYE; PRED20TA GT; UREA57CR TP; ZINC30OI4 TP; [UNRECOGNIZED DRUG - CODE] TP
--- NOTE | 2017-01-22 15:52 | NUR ---
[facility] SITE. PATIENT IS ALERT, BREATHING ON 5L O2 VIA TRACH. NO SOB. VITALS STABLE. BLOOD TINGED TRACH VISIBLE. NO DISTRESS NOTED. SAFETY AND COMFORT MEASURES IN PLACE. AWAITING MD ORDERS.
[2017-01-22] MEDS ORDERED: MORPHINE SULFATE INJ 4 MG/ML DISP.SYRIN ONE (16:12)
[2017-01-22] MEDS ORDERED: ONDANSETRON HCL/PF 4 MG/2 ML VIAL ONE (16:12)
--- NOTE | 2017-01-22 16:20 | NUR ---
NEW IV STARTED ON LAC, 20 G. BLOOD DRAWN AND SENT TO LAB. PATIENT MEDICATED PER MD ORDERS.
[2017-01-22 16:22] LABS: BASOPHILS % (AUTO) 0.5 % (0.0-2.0); EOSINOPHILS # (AUTO) 0.8 /CMM (0.0-0.7); HEMATOCRIT 40 % (39-51); HEMOGLOBIN 12.9 g/dL (13.5-17.5); LYMPHOCYTES # (AUTO) 1.1 /CMM (0.8-4.8); LYMPHOCYTES % (AUTO) 14.4 % (20.0-44.0); MEAN CORPUSCULAR HEMOGLOBIN 27 PG (26.0-33.0); MEAN CORPUSCULAR HGB CONC 33 g/dl (31.0-36.0); MEAN CORPUSCULAR VOLUME 84 fL (80-96); MONOCYTES # (AUTO) 0.6 /CMM (0.1-1.30); NEUTROPHILS # (AUTO) 5.4 /CMM (1.8-8.9); NEUTROPHILS % (AUTO) 67.1 % (43.0-81.0); PLATELET COUNT (AUTO) 264 /CMM (150-450); RDW COEFFICIENT OF VARIATION 14.3 (11.5-15.0); RED BLOOD CELL COUNT(AUTO) 4.72 MIL/uL (4.5-6.0); WHITE BLOOD COUNT (AUTO) 7.9 K/uL (4.3-11.0)
[2017-01-22] MEDS ORDERED: IV NS 0.9% 1,000 ML BAG IV ONE (16:30)
[2017-01-22] MEDS ORDERED: ONDANSETRON HCL/PF 4 MG/2 ML VIAL IVP ONE (16:30)
[2017-01-22] MEDS ORDERED: MORPHINE SULFATE INJ 2 MG/ML DISP.SYRIN IV ONE (16:30)
[2017-01-22 16:35] LABS: INR 1.01 (0.87-1.13); PROTHROMBIN TIME 10.5 SECS (9.5-12.7)
[2017-01-22 16:37] LABS: ALANINE AMINOTRANSFERASE 33 U/L (12-78); ALBUMIN 2.6 g/dL (3.4-5.0); ALKALINE PHOSPHATASE 142 U/L (46-116); ASPARTATE AMINOTRANSFERASE 33 U/L (15-37); BILIRUBIN,DIRECT 0.2 mg/dL (0.0-0.2); BILIRUBIN,TOTAL 0.5 mg/dL (0.2-1.0); CALCIUM, SERUM 8.6 mg/dL (8.5-10.1); CARBON DIOXIDE 32 mmol/L (21-32); CHLORIDE 98 mmol/L (98-107); CREATININE 0.8 mg/dL (0.6-1.3); GLUCOSE 92 mg/dL (74-106); LIPASE 105 U/L (73-393); POTASSIUM 4.4 mmol/L (3.5-5.1); SODIUM SERUM 134 mmol/L (136-145); TOTAL PROTEIN, SERUM 7.1 g/dL (6.4-8.2); UREA NITROGEN, BLOOD 17 mg/dL (7-18)
--- NOTE | 2017-01-22 17:05 | NUR ---
PATIENT TAKEN TO CT VIA STRETCHER.
[2017-01-22 17:44] LABS: APPEARANCE,URINE Slightly Cloudy (CLEAR); BILIRUBIN,URINE Negative (NEGATIVE); BLOOD, URINE Trace-lysed Ery/uL (NEGATIVE); COLOR,URINE Yellow (YELLOW); KETONES,URINE Negative (NEGATIVE); LEUKOCYTE ESTERASE ,URINE Large (NEGATIVE); NITRITE, URINE Negative (NEGATIVE); PROTEIN,URINE Negative (NEGATIVE); UGLUCOSE Negative (NEGATIVE); UROBILINOGEN,URINE 0.2 EU/dL (0.2)
[2017-01-22 18:14] LABS: BACTERIA,URINE Many /HPF (None Seen); RBC,URINE 2-3/HPF /HPF (0-2); SQUAMOUS EPITHELIAL CELL,UR Few /HPF (None Seen); WBC,URINE TOO NUMEROUS TO COUN /HPF (0-3)
[2017-01-22 18:15] LABS: MUCUS,URINE Few /LPF (None Seen); URINE AMORPHOUS URATE Few /HPF (None Seen)
[2017-01-22] MEDS ORDERED: CEFTRIAXONE 1GM BAG (ER ONLY) 50 ML IV ONE (18:38)
--- NOTE | 2017-01-22 18:43 | NUR ---
CALLED TRANSPORT ETA 60MIN PER TANI
[2017-01-22] MEDS ORDERED: CEFTRIAXONE 1GM BAG (ER ONLY) 1 GM/50 ML PIGGYBACK IV ONE (19:00)
--- NOTE | 2017-01-22 19:15 | NUR ---
REPORT GIVEN TO EDEL LEE FOR AMANDA.
[2017-01-22 19:57] VITALS: BP 134/76
--- NOTE | 2017-01-22 19:58 | NUR ---
PT DC VIA AMBULANCE
== END 2017-01-22 19:58 | disposition home or self-care (01) ==
LOC: ER 15:46
DX: N39.0 Urinary tract infection, site not specified (principal); I10 Essential (primary) hypertension; I25.10 Atherosclerotic heart disease of native coronary artery without angina pectoris; J44.9 Chronic obstructive pulmonary disease, unspecified; K21.9 Gastro-esophageal reflux disease without esophagitis; K59.00 Constipation, unspecified; N20.0 Calculus of kidney; Z46.82 Encounter for fitting and adjustment of non-vascular catheter; Z85.21 Personal history of malignant neoplasm of larynx; Z93.0 Tracheostomy status; Z99.11 Dependence on respirator [ventilator] status
CPT/HCPCS: 36415; 71010; 71250; 74176; 80048; 80076; 81001; 83690; 85025; 85730; 87077; 87086; 87186; 93005; 96361; 96365; 96375; 99285; J0696; J2270; J2405; J7030; 81000-TC; Z7610

== ENCOUNTER 2018-04-29 12:32 | Inpatient (IN) | payer MEDICARE, MEDICAID ==
[~2018-04-29] VITALS: Ht 157.5 cm; Wt 58.1 kg
[~2018-04-29 12:32] MED LIST changes: +CLON0.1T GT; -CLON0.1T PO; -ENOX40DI SQ; -IPRA3AMP IH; +IPRA3AMP23 IH
--- NOTE | 2018-04-29 12:35 | NUR ---
PT BIB [facility] C/O SENT BY DR CONNER FOR HEMOGLOBIN 7.0, PT IS AWAKE AND ALERT BUT UNABLE TO SPEAK, ON MECH VENT, V/S STABLE, KEPT RESTED AND COMFORTABLE, WILL CONTINUE TO MONITOR.
--- NOTE | 2018-04-29 12:46 | NUR ---
LABS DRAWNED, EKG DONE.
[2018-04-29 12:50] VITALS: BP 113/55
--- NOTE | 2018-04-29 12:56 | NUR ---
RT NOTE PT PLACED ON VENT PER MD ORDER. SETTINGS ENDORSED BY TRANSPORT RT AC 10 450 40% +5. PT HAS A PORTEX [address] TU[address] PL[address]. CUFF INFLATED. TRACH TUBE MIDLINE AND SECURE. ALARMS SET PER PROTOCOL AND AUDIBLE. VENT PLUGGED IN TO RED OUTLET. AMBU BAG AT BED SIDE. NO DISTRESS NOTED. PT AWAKE AND ALERT, NON VERBAL. RESPONDS BY MOVING HEAD AND FACIAL GESTURES. Addendum: 04/29/18 at 1259 by MARIA TERESA HUGHES RT Amended: Links added.
--- NOTE | 2018-04-29 13:00 | NUR ---
XRAY AT BEDSIDE.
[2018-04-29 13:07] LABS: BASOPHILS % (AUTO) 0.2 % (0.0-2.0); EOSINOPHILS % (AUTO) 0.6 % (0.0-6.0); HEMATOCRIT 25 % (39-51); HEMOGLOBIN 8.1 g/dL (13.5-17.5); LYMPHOCYTES # (AUTO) 0.5 /CMM (0.8-4.8); LYMPHOCYTES % (AUTO) 4.7 % (20.0-44.0); MEAN CORPUSCULAR HGB CONC 33 g/dl (31.0-36.0); MEAN CORPUSCULAR VOLUME 84 fL (80-96); MONOCYTES # (AUTO) 0.7 /CMM (0.1-1.30); NEUTROPHILS # (AUTO) 9.6 /CMM (1.8-8.9); NEUTROPHILS % (AUTO) 88.5 % (43.0-81.0); PLATELET COUNT (AUTO) 183 /CMM (150-450); RED BLOOD CELL COUNT(AUTO) 2.93 MIL/uL (4.5-6.0); WHITE BLOOD COUNT (AUTO) 10.8 K/uL (4.3-11.0)
[2018-04-29 13:19] LABS: CALCIUM, SERUM 7.8 mg/dL (8.5-10.1); CARBON DIOXIDE 28 mmol/L (21-32); CHLORIDE 93 mmol/L (98-107); CREATININE 0.9 mg/dL (0.6-1.3); GLUCOSE 106 mg/dL (74-106); SODIUM SERUM 125 mmol/L (136-145); UREA NITROGEN, BLOOD 41 mg/dL (7-18)
--- NOTE | 2018-04-29 13:31 | NUR ---
UNABLE TO COLLECT URINE SPECIMEN DR. HUGHES AWARE.
[2018-04-29] MEDS ORDERED: NA P133E RC (13:38)
[2018-04-29] MEDS ORDERED: DOCU50LI GT (13:38)
[2018-04-29] MEDS ORDERED: IPRA3AMP23 IH (13:38)
[2018-04-29] MEDS ORDERED: AMIN30LI27 GT (13:38)
[2018-04-29] MEDS ORDERED: MAGN400O6 GT (13:38)
[2018-04-29] MEDS ORDERED: MULT-447 GT (13:38)
[2018-04-29] MEDS ORDERED: ASCO-340 GT (13:38)
[2018-04-29] MEDS ORDERED: INSU100V3 SQ (13:38)
[2018-04-29] MEDS ORDERED: SUCR1ORA GT (13:38)
[2018-04-29] MEDS ORDERED: CHLO473M5 MM (13:38)
[2018-04-29] MEDS ORDERED: OMEP20CA10 GT (13:38)
[2018-04-29] MEDS ORDERED: ACET650S26 GT (13:38)
[2018-04-29] MEDS ORDERED: BLOO-668 IN (13:38)
[2018-04-29] MEDS ORDERED: FERR300L GT (13:38)
[2018-04-29] MEDS ORDERED: NUT.237L30 GT (13:38)
[2018-04-29] MEDS ORDERED: TRAM50TA2 GT (13:38)
[2018-04-29] MEDS ORDERED: BISA10SU8 RC (13:38)
[2018-04-29 13:39] LABS: ALANINE AMINOTRANSFERASE 25 U/L (12-78); ALBUMIN 1.6 g/dL (3.4-5.0); ALKALINE PHOSPHATASE 134 U/L (46-116); ASPARTATE AMINOTRANSFERASE 77 U/L (15-37); BILIRUBIN,DIRECT 0.2 mg/dL (0.0-0.2); BILIRUBIN,TOTAL 0.7 mg/dL (0.2-1.0); TOTAL PROTEIN, SERUM 6.1 g/dL (6.4-8.2)
[2018-04-29] MEDS ORDERED: ASPIRIN 81 MG TAB.CHEW ONE (14:15)
--- NOTE | 2018-04-29 14:15 | NUR ---
CALLED NURSING [facility] AND REQUESTED A TELE BED FOR THIS PT.
[2018-04-29] MEDS ORDERED: ASPIRIN 81 MG TAB.CHEW PO ONE (14:30)
[2018-04-29] MEDS ORDERED: IV NS 0.9% 1,000 ML BAG IV ONE (14:30)
--- NOTE | 2018-04-29 14:50 | NUR ---
PT IS ASSIGNED TO [facility]#: [id number], DX: SEVERE ANEMIA, AND ACCEPTING: MELISSA CEDILLO NP
[2018-04-29] MEDS ORDERED: NA PHOS,M-B/NA PHOS,DI-BA 1 EA ENEMA RC PRN (15:00)
[2018-04-29] MEDS ORDERED: MAGNESIUM HYDROXIDE 30 ML UDC GT PRN (15:00)
[2018-04-29] MEDS ORDERED: DEXTROSE 50%-WATER 50 ML DISP.SYRIN IV PRN (15:00)
[2018-04-29] MEDS ORDERED: BISACODYL SUPP (10 MG) 10 MG/SUPP.RECT SUPP.RECT RC PRN (15:00)
[2018-04-29] MEDS ORDERED: ONDANSETRON HCL/PF 4 MG/2 ML VIAL IVP PRN (15:00)
[2018-04-29 15:15] VITALS: BP 104/52
--- NOTE | 2018-04-29 15:18 | NUR ---
REPORT TO JESUS SAM FOR AMANDA. PT IS AWAKE AND ALERT BUT UNABLE TO SPEAK, ON MECHANICAL VENTILATION VIA TRACHEOSTOMY, KEPT RESTED AND COMFORTABLE.
--- NOTE | 2018-04-29 15:44 | NUR ---
RT NOTE PT TRANSFERRED TO ROOM 304-2 WITH EMT AND RN ASSISTANCE. PT BAGGED WITH O2. PT PLACED BACK ON VENT ON SETTINGS PRESCRIBED. VENT PLUGGED IN TO RED OUTLET. AMBU BAG AT BED SIDE. NO DISTRESS NOTED. ALARMS SET PER PROTOCOL AND AUDIBLE. AMBU BAG AT BED SIDE. SUCTION SET UP AND CONNECTED. NO DISTRESS NOTED. Addendum: 04/29/18 at 1546 by MARIA TERESA HUGHES RT Amended: Links added.
[2018-04-29 16:00] VITALS: BP 100/50
--- NOTE | 2018-04-29 16:00 | NUR ---
ELECTRONICS SUPERVISOR OPENING NOTES RECEIVED REPORT FROM CHARGE NURSE, CECY. PT IS ON VENT TO TRACH MD ORDERED. WOUND PICS TAKEN WITH BLACK POWDER GLAZING OPERATOR. PT ADMISSION ASSESSMENT DONE. PT REPOSITIONED FOR COMFORT BUT COMPLAINING OF SHOULDER PAIN. WILL FOLLOW UP WITH MD. ON TELE PT SR 89. BED IN LOCKED/LOWEST POSITION. CALL LIGHT IN REACH. WILL CONT TO MONITOR.
[2018-04-29] MEDS ORDERED: SODIUM POLYSTYRENE SULFONATE 15 G/60 ML BOTTLE GT ONE (17:30)
[2018-04-29] MEDS: DOCUSATE SODIUM LIQ 100 MG/10 ML UDC GT SCH (18:44)
[2018-04-29] MEDS: FERROUS SULFATE UDC 300 MG/5 ML UDC GT SCH (18:44)
[2018-04-29] MEDS: PROSOURCE / PROSTAT (PYXIS) 30 ML UDC GT SCH (18:44)
[2018-04-29] MEDS: BLOOD SUGAR DIAGNOSTIC 1 EACH STRIP IN SCH ×2 (18:55→23:16)
--- NOTE | 2018-04-29 19:00 | NUR ---
HEAT AND FROST INSULATOR CLOSING NOTES REPORT GIVEN TO PM NURSE FOR AMANDA. PT IS IN BED, VENT SETTINGS TO TRACH ORDERED. TOLERATING WELL. PT IS NOT IN DISTRESS. SAFETY PRECAUTIONS IN PLACE. CALL LIGHT IN REACH.
--- NOTE | 2018-04-29 19:30 | NUR ---
VOLUNTEER COORDINATOR OPENING NOTES: RECEIVED PT ON VENT AND OPENS EYES AND CAN WORD GESTURES. PT IS NONVERBAL. VENT SETTINGS ARE AC 10, TV 450, PEEP 4, AND FI02 40%. PT HAS IV ON L FOREARM #20G AND IS PATENT AND INTACT AND TO BE STARTED ON IV FLUIDS NS 75ML/HR. PT ALSO HAS G TUBE AND IS PATENT AND INTACT. NO RESIDUAL NOTED. HAS BEEN FLUSHED AND AUSCULTATED. TO BE STARTED ON TUBE FEEDING SOON. PT ON TELE BOX AND READING SHOWS SR 93. BED KEPT IN LOW, LOCKED POSITION, AND SIDE RAILS X 2UP. WILL CONTINUE TO MONITOR PT. Addendum: 04/30/18 at 0007 by MEJIA GIORDANO RN PT ON CONTINUOUS PULSE OX MACHINE.
[2018-04-29] MEDS: IV NS 0.9% 1,000 ML IV PRN (19:45)
[2018-04-29 20:00] VITALS: BP 86/50
[2018-04-29] MEDS: GLUCERNA 1.2 1,000 ML BOTTLE PEG PRN (20:16)
--- NOTE | 2018-04-29 21:42 | NUR ---
STAFF PHYSICAL THERAPIST NOTES: URINALYSIS PROFILE COLLECTED VIA CONDOM CATH BAG. PLACED IN REFRIGERATOR.
--- NOTE | 2018-04-29 21:49 | NUR ---
MECHANIC DRIVER NOTES: PT PLACED ON SPECIALTY MATTRESS ORDERED.
[2018-04-29 22:06] VITALS: BP 93/47
[2018-04-29] MEDS: ACETAMINOPHEN 650 MG/20.3 ML UDC GT PRN (22:08)
--- NOTE | 2018-04-29 22:08 | NUR ---
EVENT PRODUCER NOTES: PT POINTING AT L SHOULDER AND FACIAL GRIMACING. PT ABLE TO MOUTH THAT HE IS IN PAIN. PT WAS ADMINISTERED TYLENOL 650MG VIA G TUBE. WILL CONTINUE TO MONITOR PT.
--- NOTE | 2018-04-29 23:16 | NUR ---
TOWER FOREMAN NOTES: ICE PACK APPLIED ONTO L SHOULDER FOR PAIN. WILL CONTINUE TO MONITOR.
[2018-04-29 23:56] LABS: APPEARANCE,URINE CLEAR (CLEAR); BILIRUBIN,URINE NEGATIVE (NEGATIVE); BLOOD, URINE NEGATIVE Ery/uL (NEGATIVE); COLOR,URINE YELLOW (YELLOW); KETONES,URINE NEGATIVE (NEGATIVE); LEUKOCYTE ESTERASE ,URINE NEGATIVE (NEGATIVE); NITRITE, URINE NEGATIVE (NEGATIVE); PH,URINE 6.5 (5.0-8.0); PROTEIN,URINE TRACE mg/dl (NEGATIVE); UGLUCOSE NEGATIVE (NEGATIVE)
--- NOTE | 2018-04-29 23:57 | NUR ---
pt received on vent via trach with charted settings. airway patent. trach secure via trach tie. pt awake. ambu bag at bedside. alarms set and audible, disconnect alarms checked plugged into red outlet suctioned a moderate amount of thick yellow secretions. pt receiving no breathing tx at this time. pt hob at 30 degrees. suctioned oral secretion from pts mouth Addendum: 04/29/18 at 2357 by NA AIKEN RT Amended: Links added.
[2018-04-30] VITALS: BP 106/71
[2018-04-30 00:34] LABS: RBC,URINE 0-2 /HPF (0-2)
[2018-04-30 00:35] LABS: BACTERIA,URINE Few /HPF (None Seen); SQUAMOUS EPITHELIAL CELL,UR Few /HPF (None Seen)
--- NOTE | 2018-04-30 03:10 | NUR ---
SHIFT SUPERVISOR RN NOTES: PT REQUESTING FOR A BREATHING TX ALTHOUGH PT WAS SUCTIONED AND O2 SAT IS OK. PT STILL REQUESTING FOR BREATHING TX. PAGED RT.
[2018-04-30] MEDS: ALBUTEROL FS 2.5 MG/3 ML VIAL.NEB NEB PRN ×2 (03:15→22:17)
[2018-04-30] MEDS: IPRATROPIUM NEB FS 0.5 MG/2.5 ML AMPUL.NEB NEB PRN ×2 (03:15→22:17)
[2018-04-30 04:00] VITALS: BP 107/56
[2018-04-30] MEDS: ACETAMINOPHEN 650 MG/20.3 ML UDC GT PRN ×2 (04:44→21:30)
--- NOTE | 2018-04-30 04:45 | NUR ---
EXTERIOR INTERIOR SPECIALIST NOTES: PT CONTINUES TO POINT OUT THAT HE HAS PAIN IN HIS L SHOULDER. ICE PACK APPLIED WELL TYLENOL 650MG VIA G TUBE WAS GIVEN. WILL CONTINUE TO MONITOR PT.
[2018-04-30] MEDS: BLOOD SUGAR DIAGNOSTIC 1 EACH STRIP IN SCH ×4 (05:10→23:19)
--- NOTE | 2018-04-30 06:36 | NUR ---
ARC WELDING MACHINE OPERATOR CLOSING NOTES: ALL NEEDS WERE ATTENDED AND ANTICIPATED FOR. PT KEPT CLEAN, DRY, AND COMFORTABLE. VENT SETTINGS REMAIN THE SAME AT AC 10, TV 450, PEEP 5, AND FI02 40%. PT SUCTIONED ORALLY AND TRACH PRN. PT HAS TELE BOX AND READING SHOWS SR WITH PACS 92. PT HAS IV ON L FOREARM #20G AND IS BEING INFUSED WITH IV NS AT 75ML/HR. PT HAS G TUBE FEEDING GLUCERNA . FEEDING STOPPED FOR NOW UNTIL SEEN BY PHYSICIANS. BED KEPT IN LOW, LOCKED POSITION, AND SIDE RAILS X 2 UP. WILL ENDORSE TO AM NURSE FOR AMANDA.
[2018-04-30 06:44] LABS: BASOPHILS % (AUTO) 0.2 % (0.0-2.0); EOSINOPHILS % (AUTO) 0.1 % (0.0-6.0); HEMATOCRIT 22 % (39-51); HEMOGLOBIN 7.2 g/dL (13.5-17.5); LYMPHOCYTES # (AUTO) 0.5 /CMM (0.8-4.8); LYMPHOCYTES % (AUTO) 4.7 % (20.0-44.0); MEAN CORPUSCULAR HGB CONC 33 g/dl (31.0-36.0); MEAN CORPUSCULAR VOLUME 85 fL (80-96); MONOCYTES # (AUTO) 0.6 /CMM (0.1-1.30); MONOCYTES % (AUTO) 6.2 % (2.0-12.0); NEUTROPHILS # (AUTO) 9.2 /CMM (1.8-8.9); NEUTROPHILS % (AUTO) 88.8 % (43.0-81.0); PLATELET COUNT (AUTO) 146 /CMM (150-450); RED BLOOD CELL COUNT(AUTO) 2.55 MIL/uL (4.5-6.0); WHITE BLOOD COUNT (AUTO) 10.4 K/uL (4.3-11.0)
[2018-04-30 07:01] LABS: CALCIUM, SERUM 7.4 mg/dL (8.5-10.1); CARBON DIOXIDE 27 mmol/L (21-32); CHLORIDE 98 mmol/L (98-107); CREATININE 0.7 mg/dL (0.6-1.3); GLUCOSE 103 mg/dL (74-106); MAGNESIUM 1.8 mg/dL (1.8-2.4); POTASSIUM 3.1 mmol/L (3.5-5.1); SODIUM SERUM 134 mmol/L (136-145); UREA NITROGEN, BLOOD 30 mg/dL (7-18)
[2018-04-30 07:08] LABS: CHOLESTEROL 78 mg/dL (<200); HDL CHOLESTEROL 40 mg/dL (40-60); LDL 34 mg/dL (0-99); TRIGLYCERIDES 55 mg/dL (30-150)
[2018-04-30 08:00] VITALS: BP 100/51
--- NOTE | 2018-04-30 08:40 | NUR ---
SENIOR GAME DEVELOPER OPENING NOTES: RECEIVED PT ON VENT AND OPENS EYES AND CAN WORD GESTURES. PT IS NONVERBAL. WITH VENT SETTINGS AC 10, TV 450, PEEP 4, AND FI02 40%. PT HAS IV ON L FOREARM #20G AND IS PATENT AND INTACT AND TO BE STARTED ON IV FLUIDS NS 75ML/HR. PT ALSO HAS G TUBE AND IS PATENT AND INTACT. NO RESIDUAL NOTED. HAS BEEN FLUSHED AND AUSCULTATED. TO BE STARTED ON TUBE FEEDING SOON. PT ON TELE BOX AND READING SHOWS SR 93. BED KEPT IN LOW, LOCKED POSITION, AND SIDE RAILS X 2UP. SAFETY MEASURES OBSERVE AT ALL TIME. WILL CONTINUE TO MONITOR PT.
[2018-04-30 08:48] LABS: EOSINOPHILS % (MANUAL) 1 % (0-4); LYMPHOCYTES % (MANUAL) 3 % (16-48); MONOCYTES % (MANUAL) 3 % (0-11.0); NEUTROPHILS % (MANUAL) 93 (42-76)
--- NOTE | 2018-04-30 08:50 | NUR ---
HAIRSPRING TRUER NOTES CALLED AND INFORMED PHARMACY TO SEND ASCORBIC ACID, ORDERED. MEDICATION IS OUT OF STOCK AT THIS TIME.
[2018-04-30] MEDS ORDERED: ASPIRIN 81 MG TAB.CHEW GT SCH (09:00)
[2018-04-30] MEDS ORDERED: ASCORBIC ACID SYRUP 500 MG/5 ML UDC GT SCH (09:00)
--- NOTE | 2018-04-30 09:30 | NUR ---
SENIOR HADOOP DEVELOPER NOTES CHECKED OMNICELL, ASCORBIC ACID IS STILL OUT OF STOCK. CALLED AND FOLLOWED UP WITH THE PHARMACY STAFF.
[2018-04-30] MEDS: DOCUSATE SODIUM LIQ 100 MG/10 ML UDC GT SCH ×2 (09:50→17:04)
[2018-04-30] MEDS: MULTIVITAMINS,THERAGRAN 1 UDTAB TABLET GT SCH (09:50)
[2018-04-30] MEDS: FERROUS SULFATE UDC 300 MG/5 ML UDC GT SCH ×2 (09:50→17:04)
[2018-04-30] MEDS: SUCRALFATE 1 G/10 ML UDC GT SCH (09:50)
[2018-04-30] MEDS: PROSOURCE / PROSTAT (PYXIS) 30 ML UDC GT SCH ×2 (09:57→17:03)
--- NOTE | 2018-04-30 09:57 | NUR ---
WOUND CARE CONSULT: PT FOLLOWED BY PLASTIC SURGERY TEAM FOR WOUNDS. DEFER TO SURGICAL TEAM FOR WOUND TREATMENT PLAN. DISCUSSED ALL PRESSURE ULCER PREVENTION AND SKIN PROTECTION WITH NURSING STAFF. PT ON FIRST STEP TERESA SPENCE AIRLOSS MATTRESS. WILL SEE PRN.
[2018-04-30] MEDS: POTASSIUM CHLORIDE 20 MEQ POWDER PACKET GT SCH ×2 (10:06→11:17)
[2018-04-30] MEDS ORDERED: Z GUARD REMEDY 2 OZ OINT TP PRN (10:30)
[2018-04-30] MEDS: IV NS 0.9% 1,000 ML IV PRN (10:33)
[2018-04-30] MEDS: Z GUARD REMEDY 2 OZ OINT TP SCH (11:25)
[2018-04-30 12:00] VITALS: BP 98/50
[2018-04-30] MEDS: ASCORBIC ACID 500 MG TABLET GT SCH (12:02)
[2018-04-30] MEDS ORDERED: POTASSIUM CL. PREMIX PERIPHER. 50 ML IV SCH (12:30)
--- NOTE | 2018-04-30 12:32 | NUR ---
PATROL POLICE SERGEANT NOTES-- CALLED PHARMACY TO CLARIFY POTASSIUM ORDER PT ALREADY RECEIVED 2 PACKETS OF POTASSIUM CHL. PHARMACY STATED THEY WILL FOLLOW UP WITH DR. ROSARIO. WILL CONTINUE TO FOLLOW UP.
--- NOTE | 2018-04-30 13:35 | NUR ---
ELECTRIC CELL TENDER NOTES SEEN AND EXAMINED BY DR. Lm ROSARIO AT 12:00NN. PATIENT IS RESTING COMFORTABLE, NO SIGNS OF ACUTE CARDIAC OR RESPIRATORY DISTRESS NOTED. NO SIGNS OF HYPER / HYPOGLYCEMIA, BLOOD GLUCOSE 100MG/DL AT 1200. GT PATENT AND INTACT, NO RESIDUAL NOTED. WILL CONTINUE TO MONITOR ACCORDINGLY.
[2018-04-30 16:00] VITALS: BP 114/63
--- NOTE | 2018-04-30 18:59 | NUR ---
LAMP CLEANER NOTES PATIENT RESTING COMFORTABLY, BLOOD GLUCOSE AT 1800 102MG/DL, NO SIGNS OF HYPER / HYPOGLYCEMIA, NO ACUTE CARDIAC AND RESPIRATORY DISTRESS NOTED, VENT SETTINGS TOLERATING WELL, GT CLEAN, DRY, PATENT AND INTACT, NO GT RESIDUAL NOTED, FEEDING TOLERATING WELL. HOLD ASPIRIN PER MD ORDER, CONTINUE IV FLUIDS PER MD ORDER. ALL NEEDS ANTICIPATED, KEPT CLEAN, DRY AND COMFORTABLE ON LOW AIR LOSS MATTRESS. REPOSITIONED PATIENT. WILL ENDORSED TO DIRECTOR LEARNING NURSE FOR CONTINUOUS CARE AND MANAGEMENT.
--- NOTE | 2018-04-30 19:15 | NUR ---
COLLAR STITCHER OPENING NOTES: RECEIVED PT ON MECHANICAL VENTILATOR WITH SETTINGS AC 10, TV 450, PEEP 5, AND FI02 40%. PT ASLEEP AT THIS TIME AND RESTING COMFORTABLY. PT HAS IV AND IS BEING INFUSED WITH IV NS AT 75ML/HR. PT HAS G TUBE. 5ML OF RESIDUAL NOTED. PT ON TUBE FEEDING GLUCERNA 1.2 AT 50ML/HR. BED KEPT IN SEMI-MOE'S POSITION. BED ALARM ACTIVATED. BED KEPT IN LOW, LOCKED POSITION, AND SIDE RAILS X 2UP. WILL CONTINUE TO MONITOR PT. Addendum: 04/30/18 at 1948 by MEJIA GIORDANO RN PT ON TELE BOX AND READING SHOWS SR WITH PACS 99.
[2018-04-30 20:00] VITALS: BP 120/53
--- NOTE | 2018-04-30 21:30 | NUR ---
DAIRY FARMER NOTES: PT FACIAL GRIMACING AND MOUTHING THAT HIS L SHOULDER IS IN PAIN. PT WAS ADMINISTERED TYLENOL 650MG VIA G TUBE. WILL CONTINUE TO MONITOR.
--- NOTE | 2018-04-30 21:47 | NUR ---
PLANNING ANALYST MELISSA CEDILLO AT BEDSIDE. AWARE OF PRELIMINARY BLOOD CD GRAM POSTIVE AND GRAM NEGATIVE RODS. ALSO INFORMED HIM THAT PT IS MOUTHING TRAMADOL FOR PAIN. PLANNING ANALYST AWARE AND ORDERED NORCO 5 FOR PAIN. Addendum: 05/01/18 at 0113 by MEJIA GIORDANO RN MELISSA CEDILLO ON FLOOR
--- NOTE | 2018-04-30 23:17 | NUR ---
PT RCCHAVARRIA'D ON MECHANICAL VENT WITH CHARTED SETTINGS. SX DONE. PT TRACH PATENT AND SECURE. AMBU BAG AT BEDSIDE. VENT PLUGGED INTO RED OUTLET. ALARMS ARE SET AND AUDIBLE. WILL CONTINUE TO MONITOR. Addendum: 04/30/18 at 2317 by MARILU VANN RT Amended: Links added.
[2018-04-30] MEDS: INSULIN REGULAR, HUMAN 100 UNIT/ML 3 ML VIAL SQ PRN (23:29)
[2018-05-01] VITALS: BP 104/56
[2018-05-01] MEDS: IV NS 0.9% 1,000 ML IV PRN (00:41)
[2018-05-01] MEDS: HYDROCODONE/APAP 5/325MG 1 EACH TABLET GT PRN ×2 (00:49→22:32)
--- NOTE | 2018-05-01 00:50 | NUR ---
CRUDE OIL DRIVER NOTES: PT MOUTHING THAT HE HAS PAIN IN HIS L SHOULDER WITH FACIAL GRIMACING AND POINTING AT THE L SHOULDER. PT WAS ADMINISTERED NORCO 5 PO. WILL CONTINUE TO MONITOR PT.
[2018-05-01 04:00] VITALS: BP 117/53
[2018-05-01] MEDS: GLUCERNA 1.2 1,000 ML BOTTLE PEG PRN (05:06)
[2018-05-01] MEDS: BLOOD SUGAR DIAGNOSTIC 1 EACH STRIP IN SCH ×3 (05:12→17:55)
[2018-05-01] MEDS: INSULIN REGULAR, HUMAN 100 UNIT/ML 3 ML VIAL SQ PRN (05:21)
--- NOTE | 2018-05-01 06:21 | NUR ---
SANDWICH MACHINE OPERATOR CLOSING NOTES: ALL NEEDS WERE ATTENDED AND ANTICIPATED FOR. PT KEPT CLEAN, DRY, AND COMFORTABLE. PT ON PORTEX #6 AND REMAINS ON VENT SETTINGS AC 10, TV 450, PEEP 5, AND FI02 40%. PT IS NONVERBAL BUT ABLE TO MOUTH WORDS. PT ASLEEP AT THIS TIME AND RESTING COMFORTABLY. PT CONNECTED TO CONTINUOUS PULSE OX. PT ON TELE BOX AND READING SHOWS SR WITH PACS 85. WOUND TX PERFORMED ORDERED. PT TURNED AND REPOSITED Q2HRS PER PROTOCOL. BLOOD SUGAR THIS AM WAS 120. NO INSULIN WAS ADMINISTERED. PT HAS IV ON L FOREARM #20G AND IS BEING INFUSED WITH IV NS AT 75ML/HR. PT HAS G TUBE. 5ML RESIDUAL NOTED. HAS BEEN FLUSHED ACCORDINGLY. PT ON GLUCERNA 1.2 FEEDING AT 50ML/HR. BED KEPT IN LOW, LOCKED POSITION, AND SIDE RAILS X 2UP. BED ALARM ACTIVATED. WILL ENDORSE TO AM NURSE FOR AMANDA. Addendum: 05/01/18 at 0643 by MEJIA GIORDANO RN PT SUCTIONED PRN.
--- NOTE | 2018-05-01 07:30 | NUR ---
ms rn received on bed,sleeping, arousable not in any form of distress, respirations even and unlabored,no sob noted, vent dependent patient, will monitor patient's condition
[2018-05-01 07:40] LABS: BASOPHILS # (AUTO) 0.1 /CMM (0.0-0.2); BASOPHILS % (AUTO) 0.5 % (0.0-2.0); EOSINOPHILS % (AUTO) 0.2 % (0.0-6.0); HEMATOCRIT 22 % (39-51); HEMOGLOBIN 7.2 g/dL (13.5-17.5); LYMPHOCYTES # (AUTO) 0.4 /CMM (0.8-4.8); LYMPHOCYTES % (AUTO) 4.2 % (20.0-44.0); MEAN CORPUSCULAR HGB CONC 32 g/dl (31.0-36.0); MEAN CORPUSCULAR VOLUME 85 fL (80-96); MONOCYTES # (AUTO) 0.6 /CMM (0.1-1.30); MONOCYTES % (AUTO) 5.4 % (2.0-12.0); NEUTROPHILS # (AUTO) 9.3 /CMM (1.8-8.9); NEUTROPHILS % (AUTO) 89.7 % (43.0-81.0); PLATELET COUNT (AUTO) 147 /CMM (150-450); RED BLOOD CELL COUNT(AUTO) 2.62 MIL/uL (4.5-6.0); WHITE BLOOD COUNT (AUTO) 10.3 K/uL (4.3-11.0)
[2018-05-01 07:53] LABS: CALCIUM, SERUM 7.8 mg/dL (8.5-10.1); CARBON DIOXIDE 25 mmol/L (21-32); CHLORIDE 104 mmol/L (98-107); CREATININE 0.7 mg/dL (0.6-1.3); GLUCOSE 133 mg/dL (74-106); SODIUM SERUM 139 mmol/L (136-145); UREA NITROGEN, BLOOD 24 mg/dL (7-18)
[2018-05-01 07:58] LABS: POTASSIUM 2.6 mmol/L (3.5-5.1)
[2018-05-01 08:00] VITALS: BP 127/62
--- NOTE | 2018-05-01 08:20 | NUR ---
MS JESUS RECEIVED A CRITICAL RESULT OF K -2.6, PAGED DR. ROSARIO W/ ORDERS MADE AND CARRIED OUT.
[2018-05-01] MEDS ORDERED: POTASSIUM CHLORIDE 20 MEQ TAB.PRT.SR PO ONE (08:30)
[2018-05-01] MEDS ORDERED: ASCORBIC ACID 500 MG TABLET GT SCH (09:00)
--- NOTE | 2018-05-01 09:10 | NUR ---
ms rn meds given by students via g tube, tolerated well.
[2018-05-01] MEDS: MULTIVITAMINS,THERAGRAN 1 UDTAB TABLET GT SCH (09:45)
[2018-05-01] MEDS: DOCUSATE SODIUM LIQ 100 MG/10 ML UDC GT SCH ×2 (09:45→17:55)
[2018-05-01] MEDS: ASCORBIC ACID 500 MG TABLET GT SCH (09:45)
[2018-05-01] MEDS: FERROUS SULFATE UDC 300 MG/5 ML UDC GT SCH ×2 (09:45→17:55)
[2018-05-01] MEDS: SUCRALFATE 1 G/10 ML UDC GT SCH (09:46)
[2018-05-01] MEDS: POTASSIUM CL. PREMIX PERIPHER. 50 ML IV SCH ×4 (10:02→15:57)
--- NOTE | 2018-05-01 11:00 | NUR ---
MS RN SON AT BEDSIDE,ALL NEEDS ATTENDED.
[2018-05-01] MEDS: PROSOURCE / PROSTAT (PYXIS) 30 ML UDC GT SCH ×2 (11:06→17:55)
[2018-05-01] MEDS: Z GUARD REMEDY 2 OZ OINT TP SCH (11:12)
[2018-05-01 12:00] VITALS: BP 130/70
[2018-05-01] MEDS: ACETAMINOPHEN 650 MG/20.3 ML UDC GT PRN (14:14)
[2018-05-01 15:41] VITALS: BP 122/50
[2018-05-01] MEDS ORDERED: LIDOCAINE 2%-EPI 1:100,000 30 ML VIAL TP ONE (16:00)
--- NOTE | 2018-05-01 18:25 | NUR ---
ms khanna bs - 118 - no coverage needed.
--- NOTE | 2018-05-01 18:34 | NUR ---
ms rn on bed, no distress notes,all needs attended.
--- NOTE | 2018-05-01 19:15 | NUR ---
ELECTRIC TRUCKER NOTES RECEIVED ON BED A/O X2-3,ON TRACH TO VENT,SETTINGS TOLERATED WELL.WITH GT FEEDING OF GLUCERNA AT 50ML/HR RATE,IVF INFUSING AT 75ML/HR RATE,SITE PATENT ON LFA.ON SPECIALTY MATTRESS FOR SKIN MANAGEMENT.CALL LIGHT IN REACH,NEEDS ANTICIPATED.
[2018-05-01 20:00] VITALS: BP 137/54
[2018-05-01] MEDS: Potassium Chloride 20 MEQ in IV NS 0.9% 1,000 ML IV PRN (21:24)
--- NOTE | 2018-05-01 22:23 | NUR ---
TURNAROUND PLANNER NOTES C/O PAIN TRACH AREA,APPEARS ANXIOUS,NORCO 5/325MG,1 TAB/GT GIVEN ORDERED FOR MODERATE PAIN.
[2018-05-02] VITALS: BP 131/59
[2018-05-02] MEDS: BLOOD SUGAR DIAGNOSTIC 1 EACH STRIP IN SCH ×5 (00:24→23:44)
--- NOTE | 2018-05-02 03:45 | NUR ---
PATIENT RECEIVED ON MECHANICAL VENTILATION SUPPORT WITH SETTINGS OF AC 10, 450 VT, 40%, +5. SUCTIONED FOR MINIMAL, THIN, WHITE SECRETIONS. NO OTHER ADVERSE REACTIONS NOTED. AMBU BAG AT BEDSIDE. VENT ALARMS AUDIBLE AND VISIBLE. VENT PLUGGED INTO RED OUTLET. Addendum: 05/02/18 at 0346 by KELLY CADET RT Amended: Links added.
[2018-05-02 04:00] VITALS: BP 146/65
--- NOTE | 2018-05-02 05:00 | NUR ---
OFFICE TECHNOLOGIST NOTES MORNING CARE RENDERED WITH COBY ALLEN,TOLERATED WELL.
--- NOTE | 2018-05-02 05:15 | NUR ---
LEATHER BELT MAKER NOTES ACCU-CHECK BLOOD SUGAR CHECK 134,NO INSULIN,NO COVERAGE,NPO STATUS FOR SACRAL WOUND DEBRIDEMENT.
[2018-05-02] MEDS ORDERED: PIPERACILLIN /TAZOBACTAM 3.375 G VIAL IV ONE (05:25)
--- NOTE | 2018-05-02 05:30 | NUR ---
AREA DIRECTOR NOTES STARTED ON ZOSYN 3.375GM IV ORDERED.
[2018-05-02] MEDS ORDERED: PIPERACILLIN /TAZOBACTAM 3.375 G in IV D5W 50 ML IV SCH (06:00)
--- NOTE | 2018-05-02 06:06 | NUR ---
WELDING MACHINE OPERATOR GAS METAL ARC NOTES ON BED A/O X2-3,ABLE TO VERBALIZED NEEDS THRU MOUTH WORDS.NO SOB,VENT SETTINGS TOLERATED WELL.NPO STATUS,GT FEEDING OFF,CALL LIGHT IN REACH,NEEDS ATTENDED.WILL ENDORSE TO DAY SHIFT NURSE FOR CONTINUITY OF CARE.
[2018-05-02 07:37] LABS: BASOPHILS % (AUTO) 0.3 % (0.0-2.0); EOSINOPHILS % (AUTO) 0.3 % (0.0-6.0); HEMATOCRIT 22 % (39-51); HEMOGLOBIN 7.1 g/dL (13.5-17.5); LYMPHOCYTES # (AUTO) 0.4 /CMM (0.8-4.8); LYMPHOCYTES % (AUTO) 4.2 % (20.0-44.0); MEAN CORPUSCULAR HGB CONC 32 g/dl (31.0-36.0); MEAN CORPUSCULAR VOLUME 85 fL (80-96); MONOCYTES # (AUTO) 0.6 /CMM (0.1-1.30); MONOCYTES % (AUTO) 6.7 % (2.0-12.0); NEUTROPHILS % (AUTO) 88.5 % (43.0-81.0); PLATELET COUNT (AUTO) 147 /CMM (150-450); RED BLOOD CELL COUNT(AUTO) 2.57 MIL/uL (4.5-6.0)
[2018-05-02 07:50] LABS: CALCIUM, SERUM 8.2 mg/dL (8.5-10.1); CARBON DIOXIDE 25 mmol/L (21-32); CHLORIDE 107 mmol/L (98-107); CREATININE 0.6 mg/dL (0.6-1.3); GLUCOSE 129 mg/dL (74-106); POTASSIUM 4.4 mmol/L (3.5-5.1); SODIUM SERUM 140 mmol/L (136-145); UREA NITROGEN, BLOOD 27 mg/dL (7-18)
[2018-05-02 07:56] LABS: ALANINE AMINOTRANSFERASE 16 U/L (12-78); ALKALINE PHOSPHATASE 127 U/L (46-116); ASPARTATE AMINOTRANSFERASE 28 U/L (15-37); BILIRUBIN,TOTAL 0.7 mg/dL (0.2-1.0); MAGNESIUM 1.7 mg/dL (1.8-2.4); PHOSPHORUS 2.1 mg/dL (2.5-4.9); TOTAL PROTEIN, SERUM 5.6 g/dL (6.4-8.2)
[2018-05-02 08:00] VITALS: BP 169/89
--- NOTE | 2018-05-02 08:00 | NUR ---
BLACK AND WHITE PRINTER OPERATOR NOTES RECEIVED PATIENT ASLEEP IN BED. NO RESPIRATORY DISTRESS NOTED. PERIPHERAL IV INTACT AND PATENT. GT INTACT AND PATENT. RECEIVED CALL FROM LAB RE: CRITICAL ALBUMIN 1.4. DR. ROSARIO ON FLOOR AND MADE AWARE. AWAITING NEW ORDERS. PATIENT WITH NO C/O PAIN OR DISCOMFORT. BED IN LOW LOCK SETTING. HOB MAINTAINED AT 45 DEGREES. ALL BELONGINGS KEPT NEAR BEDSIDE. CALL LIGHT WITHIN REACH.
[2018-05-02 08:11] LABS: ALBUMIN 1.4 g/dL (3.4-5.0)
[2018-05-02] MEDS: SUCRALFATE 1 G/10 ML UDC GT SCH (08:48)
[2018-05-02] MEDS: PROSOURCE / PROSTAT (PYXIS) 30 ML UDC GT SCH ×2 (08:48→16:11)
[2018-05-02] MEDS: DOCUSATE SODIUM LIQ 100 MG/10 ML UDC GT SCH ×2 (08:48→16:11)
[2018-05-02] MEDS: FERROUS SULFATE UDC 300 MG/5 ML UDC GT SCH ×2 (08:48→16:11)
[2018-05-02] MEDS: ASCORBIC ACID 500 MG TABLET GT SCH (08:49)
[2018-05-02] MEDS: MULTIVITAMINS,THERAGRAN 1 UDTAB TABLET GT SCH (08:49)
[2018-05-02] MEDS: Z GUARD REMEDY 2 OZ OINT TP SCH (08:49)
[2018-05-02] MEDS ORDERED: NEUTRA PHOS 1 POWD.PACKET GT ONE (09:00)
--- NOTE | 2018-05-02 09:04 | NUR ---
RT RECD PT TRACHED INTACT AND SECURED ON MECH VENT BETH ORDERED SETTINGS ALARMS ON AND AUDIBLE BAG AND MASK AT HOB VENT PLUGGED IN RED SX THIN YELLOW PALE SECRETIONS WILL CONT TO MONITOR
[2018-05-02] MEDS: PIPERACILLIN /TAZOBACTAM 3.375 G in IV D5W 100 ML IV SCH ×2 (09:36→16:11)
[2018-05-02] MEDS: CLONIDINE HCL 0.1 MG TABLET GT PRN (09:41)
[2018-05-02] MEDS: Magnesium 1GM/D5W 100ML PREMIX 100 ML IV SCH ×2 (12:07→13:11)
--- NOTE | 2018-05-02 12:30 | NUR ---
MEDICAID COLLECTION SPECIALIST NOTES S/P WOUND DEBRIDEMENT ON SACRAL PRESSURE INJURY. NO ACTIVE BLEEDING NOTED. PATIENT TOLERATED WELL WITH NO C/O PAIN OR DISCOMFORT. ALSO WITH NEW ORDER FOR CONDOM CATH INSERTION AND TOLERATED WELL. DRAINING YELLOW CLEAR URINE. WILL CONTINUE TO MONITOR.
[2018-05-02 16:00] VITALS: BP 154/68
[2018-05-02] MEDS: Potassium Chloride 20 MEQ in IV NS 0.9% 1,000 ML IV PRN (16:54)
--- NOTE | 2018-05-02 18:29 | NUR ---
PT IS VERY ANXIOUS ALWAYS ASKING FOR WATER EVERY 5 MINS.ORAL CARE DONE SEVERAL TIMES BUT PT CONTINUES TO ASK FOR WATER INSPITE OF EXPLAINING THE RISKS OF ASPIRATION.CONTINUES TO BE ON GT FEEDING OF GLUCERNA 1.2 AT 50 ML/HR INFUSING AND TOLERATING WELL.HOB KEPT ELEVATED.TURNED EVERY TWO HRS.SUCTIONED TRACH SECRETIONS OFTEN.ORAL CARE DONE.WILL CONTINUE TO MONITOR.CALL LIGHT PLACED WITHIN REACH.
--- NOTE | 2018-05-02 19:30 | NUR ---
DEVELOPMENT CHEMIST NOTES RECEIVED ON BED ON LEFT SIDE POSITION,BREATHING NON LABORED.TRACH/VENT SETTINGS TOLERATED WELL,ON IVF FLUIDS NS WITH 20 MEQ KCL AT 75ML/HR RATE,SITE PATENT ON LFA.WITH CONDOM CATH DRAINING CLEAR YELLOW OUTPUT.S/P SACRAL WOUND DEBRIDEMENT BY DR THOMAS,DRESSING INTACT AND DRY.NOTED MULTIPLE SKIN DISCOLORATION,BRUISING ON BOTH UPPER EXTREMITIES.WITH GT FEEDING OF GLUCERNA AT 50ML/HR RATE.NO RESIDUAL NOTED.WILL CONTINUE TO MONITOR STATUS.
[2018-05-02 20:00] VITALS: BP 136/59
--- NOTE | 2018-05-02 20:24 | NUR ---
PT RCVD TRACH PORTEX 6 ON VENT WITH NOTED SETTINGS. PT IS ALERT AND AWAKE. TRACH INTACT AND SECURED. VENT PLUGGED INTO RED OUTLET, VENT ALARMS ON AND AUDIBLE. SUCTIONED PT WITH MODERATE AMOUNT OF YELLOW THICK SECRETIONS. AMBU BAG AT BEDSIDE. WILL CONTINUE TO MONITOR THE PT.
--- NOTE | 2018-05-02 23:50 | NUR ---
HOST HOSTESS NOTES ACCU-CHECK BLOOD SUGAR CHECK 120,NO INSULIN COVERAGE.
[2018-05-03] VITALS: BP 149/81
[2018-05-03] MEDS: HYDROCODONE/APAP 5/325MG 1 EACH TABLET GT PRN ×3 (00:05→18:50)
[2018-05-03] MEDS: PIPERACILLIN /TAZOBACTAM 3.375 G in IV D5W 100 ML IV SCH ×2 (01:01→08:40)
[2018-05-03 04:00] VITALS: BP 133/84
--- NOTE | 2018-05-03 05:00 | NUR ---
CORPORATE DEVELOPMENT ANALYST NOTES MORNING CARE RENDERED TOLERATED WELL.REPORTED BY AZA SPRAYER MACHINE,SHE PUT WASH CLOTH AND APPLIED TOURNIQUET ON RIGHT WRIST TO DRAW BLOOD BUT IT CAUSE SKIN TEAR,UNMEASURABLE. CLEANSE WITH NS AND APPLIED MEPILEX.
--- NOTE | 2018-05-03 05:30 | NUR ---
SHANK ARCHER NOTES ACCU-CHECK BLOOD SUGAR CHECK 147,COVERED WITH HUMULIN R 2 UNITS PER SLIDING SCALE..GR FEEDING IN PROGRESS.
[2018-05-03] MEDS: BLOOD SUGAR DIAGNOSTIC 1 EACH STRIP IN SCH ×4 (05:34→23:56)
[2018-05-03] MEDS: INSULIN REGULAR, HUMAN 100 UNIT/ML 3 ML VIAL SQ PRN ×2 (05:38→17:39)
--- NOTE | 2018-05-03 06:21 | NUR ---
GIFTED TEACHER NOTES SLEPT WELL WITH LG FOR PAIN MANAGEMENT.MEPILEX CHANGED ON SACRAL AREA.NO BLEEDING NOTED,REPOSITION PER PROTOCOL.GT FEEDING TOLERATED WELL.NO RESIDUAL.SUCTION MUCUS ON TRACH NEEDED.IN NO ACUTE DISTRESS.WILL ENDORSE TO DAY NURSE FOR AMANDA.
--- NOTE | 2018-05-03 07:27 | NUR ---
COLLECTION ANALYST OPENING NOTES RECEIVED PT LAYING IN BED WITH HOB ELEVATED. PT IS A/O X2-3, AFEBRILE. RESPIRATIONS ARE EVEN AND UNLABORED, NOT IN ANY ACUTE DISTRESS NOTED. PT DENIES PAIN AT THIS TIME, NO C/O SOB N/V NOTED. IV TO LFA INTACT, NO INFILTRATION NOTED. DRESSING KEPT CLEAN AND DRY. PT CURRENTLY HAS A CONDOM CATH, DRAINING YELLOW URINE, TUBING IS FREE OF KINKS. PT DENIES ANY BLADDER DISCOMFORT. SAFETY MEASURES ARE IN PLACE. INSTRUCTED PT TO USE CALL LIGHT WHEN ASSISTANCE IS NEEDED, CALL LIGHT IS LEFT WITHIN REACH. WILL MONITOR THROUGHOUT SHIFT FOR CONTINUITY OF CARE.
[2018-05-03 08:00] VITALS: BP 114/53
[2018-05-03] MEDS: SUCRALFATE 1 G/10 ML UDC GT SCH (08:40)
[2018-05-03] MEDS: DOCUSATE SODIUM LIQ 100 MG/10 ML UDC GT SCH ×2 (08:40→17:34)
[2018-05-03] MEDS: FERROUS SULFATE UDC 300 MG/5 ML UDC GT SCH ×2 (08:40→17:34)
[2018-05-03] MEDS: MULTIVITAMINS,THERAGRAN 1 UDTAB TABLET GT SCH (08:41)
[2018-05-03] MEDS: ASCORBIC ACID 500 MG TABLET GT SCH (08:41)
[2018-05-03] MEDS: PROSOURCE / PROSTAT (PYXIS) 30 ML UDC GT SCH ×2 (08:41→17:34)
[2018-05-03] MEDS: Z GUARD REMEDY 2 OZ OINT TP SCH (08:41)
[2018-05-03 10:39] LABS: BASOPHILS % (AUTO) 0.2 % (0.0-2.0); EOSINOPHILS % (AUTO) 0.6 % (0.0-6.0); HEMATOCRIT 24 % (39-51); HEMOGLOBIN 7.4 g/dL (13.5-17.5); LYMPHOCYTES # (AUTO) 0.9 /CMM (0.8-4.8); LYMPHOCYTES % (AUTO) 7.5 % (20.0-44.0); MEAN CORPUSCULAR HGB CONC 31 g/dl (31.0-36.0); MEAN CORPUSCULAR VOLUME 87 fL (80-96); MONOCYTES # (AUTO) 0.9 /CMM (0.1-1.30); MONOCYTES % (AUTO) 7.6 % (2.0-12.0); NEUTROPHILS % (AUTO) 84.1 % (43.0-81.0); PLATELET COUNT (AUTO) 194 /CMM (150-450); RED BLOOD CELL COUNT(AUTO) 2.72 MIL/uL (4.5-6.0); WHITE BLOOD COUNT (AUTO) 11.9 K/uL (4.3-11.0)
[2018-05-03 10:50] LABS: CALCIUM, SERUM 8.4 mg/dL (8.5-10.1); CARBON DIOXIDE 26 mmol/L (21-32); CHLORIDE 106 mmol/L (98-107); CREATININE 0.6 mg/dL (0.6-1.3); GLUCOSE 117 mg/dL (74-106); PHOSPHORUS 2.8 mg/dL (2.5-4.9); POTASSIUM 4.5 mmol/L (3.5-5.1); SODIUM SERUM 139 mmol/L (136-145); UREA NITROGEN, BLOOD 31 mg/dL (7-18)
[2018-05-03 12:00] VITALS: BP 151/80
[2018-05-03] MEDS: methylPREDNISolone SOD SUCC 40 MG/ML VIAL IV SCH ×2 (12:08→13:13)
--- NOTE | 2018-05-03 12:14 | NUR ---
MS RN NOTES-- BLOOD SUGAR 118, NO COVERAGE NEEDED. NO S/SX OF HYPO/HYPERGLYCEMIA NOTED. WILL CONTINUE TO MONITOR.
--- NOTE | 2018-05-03 12:40 | NUR ---
EDITORIAL SPECIALIST NOTES-- CHANGED SUCTION CANISTERS/TUBINGS.
[2018-05-03] MEDS: GLUCERNA 1.2 1,000 ML BOTTLE PEG PRN (12:42)
--- NOTE | 2018-05-03 13:00 | NUR ---
SERVICE DESK TEAM LEAD NOTES-- PT SEEN AND EXAMINED BY DR. LUO.
[2018-05-03] MEDS: CEFTAZIDIME 1 G in IV D5W 50 ML IV SCH ×2 (15:48→20:39)
[2018-05-03 16:00] VITALS: BP 156/74
[2018-05-03] MEDS: HYDROGEL DRESSING 90 GM TUBE TP SCH (17:34)
--- NOTE | 2018-05-03 18:18 | NUR ---
SWIMMING POOL MAINTENANCE SUPERVISOR CLOSING NOTES ALL DUE MEDS GIVEN, NEEDS MET AND RENDERED. PT REMAINS A/O X2-3, ABLE TO MOUTH WORDS. TOLERATING VENT SETTINGS AT AC 10, TV 450, FIO2 40% PEEP 5, SATURATING AT 100%. PERFORMED SUCTIONING PRN. PT DENIES ANY PAIN AT THIS TIME. REPOSITIONED PER PROTOCOL. DRESSING CHANGES DONE TO SACRAL AND LOWER BACK. IV SITE TO LFA INTACT, NO INFILTRATION NOTED. DRESSING KEPT CLEAN AND DRY. TOLERATING GTF ON GLUCERNA 1.2 @50ML/HR W/ NO RESIDUAL. HOB KEPT ELEVATED TO PREVENT ASPIRATION. SAFETY MEASURES ARE IN PLACE. BED IS IN ITS LOCKED AND LOWEST POSITION. WILL ENDORSE TO NEXT SHIFT FOR CONTINUITY OF CARE.
[2018-05-03] MEDS: LORAZEPAM INJ 2 MG/ML VIAL IVP PRN (18:50)
--- NOTE | 2018-05-03 19:00 | NUR ---
RN MS TELE OPENING NOTES RECEIVED PATIENT IN BED SLEEPING BUT AROUSABLE, RESPIRATIONS EVEN AND UNLABORED WITH EQUAL RISE AND FALL OF CHEST, HEAD OF ELEVATED FOR ASPIRATION PRECAUTIONS. NO RESIDUALS PRESENT TOLERATING FEEDING WELL. GTUBE IS INTACT AND PATENT. ON MECHANICAL VENT PLUGGED INTO RED PLUG AND PROPERLY WORKING AND AMBU BAG AT BEDSIDE, SETTINGS AC 10, TV 450, FI02 40%,PEEP 5 PORTEX #6, CONTINUOUS PULSE OX AT BEDSIDE AT 100%, ON NUTRITIONAL YEAST SUPERVISOR SR AT 92. NOTED WITH BILATERAL LOWER EXTREMITY EDEMA +1 PITTING , AND SKIN TEAR TO RIGHT FA AND SCATTERED LARGE DISCOLORATIONS TO BOTH UPPER EXTREMITIES. IV SITE TO LEFT FA #20G SL INTACT AND PATENT NO REDNESS, NO INFILTRATION PRESENT, SAFETY PRECAUTIONS IN PLACE, LOW BED AND LOCKED AND CALL LIGHT KEPT WITHIN REACH, ALL NEEDS ATTENDED AT THIS TIME, WILL CONTINUE TO MONITOR.CONDOM CATHETER INTACT AND DRAINING NOTED URINE COLOR YELLOW, ON FIRST STEP SPECIAL MATTRESS FOR WOUND AND SKIN MANAGEMENT AND PROPERLY WORKING. PATIENT APPEARS COMFORTABLE AT THIS TIME.
[2018-05-03 20:00] VITALS: BP 129/60
--- NOTE | 2018-05-03 23:00 | NUR ---
ELECTRONIC EQUIPMENT INSTALLER NOTES UPON SKIN ASSESSMENT NOTED RIGHT PLANTAR OF TOE APPEARS OLD DISCOLORATION COLOR YELLOW AND FADING PURPLE, NO PAIN OR SWELLING TO SITE, UPON ASSESSING ADMISSION PICTURES NOTED PRESENT UPON ADMISSION. PICTURE TAKEN FOR UPDATE AND WOUND CARE CONSULT PLACED. TRACH NECK TIE CHANGED, DRESSING ON TRACH CHANGED WITH PROPER SKIN CARE PROVIDED AND CLEANSED. NECK TIE SECURE.
--- NOTE | 2018-05-03 23:35 | NUR ---
PT RCCHAVARRIA'D ON MECHANICAL VENT WITH CHARTED SETTINGS. SX DONE. PT TRACH PATENT AND SECURE. AMBU BAG AT BEDSIDE. VENT PLUGGED INTO RED OUTLET. ALARMS ARE SET AND AUDIBLE. WILL CONTINUE TO MONITOR. Addendum: 05/03/18 at 2335 by MARILU VANN RT Amended: Links added.
[2018-05-04] VITALS (10 sets, daily range): BP systolic 121–141; BP diastolic 56–83
[2018-05-04] MEDS: INSULIN REGULAR, HUMAN 100 UNIT/ML 3 ML VIAL SQ PRN ×3 (00:03→23:28)
[2018-05-04] MEDS: CEFTAZIDIME 1 G in IV D5W 50 ML IV SCH ×3 (05:09→20:51)
[2018-05-04] MEDS: BLOOD SUGAR DIAGNOSTIC 1 EACH STRIP IN SCH ×4 (05:21→23:27)
[2018-05-04 06:30] LABS: BASOPHILS % (AUTO) 0.1 % (0.0-2.0); LYMPHOCYTES # (AUTO) 0.3 /CMM (0.8-4.8); LYMPHOCYTES % (AUTO) 3.7 % (20.0-44.0); MEAN CORPUSCULAR HGB CONC 32 g/dl (31.0-36.0); MEAN CORPUSCULAR VOLUME 85 fL (80-96); MONOCYTES # (AUTO) 0.5 /CMM (0.1-1.30); MONOCYTES % (AUTO) 5.5 % (2.0-12.0); NEUTROPHILS # (AUTO) 8.1 /CMM (1.8-8.9); NEUTROPHILS % (AUTO) 90.7 % (43.0-81.0); PLATELET COUNT (AUTO) 164 /CMM (150-450); WHITE BLOOD COUNT (AUTO) 8.9 K/uL (4.3-11.0)
[2018-05-04 06:43] LABS: CALCIUM, SERUM 8.3 mg/dL (8.5-10.1); CARBON DIOXIDE 30 mmol/L (21-32); CHLORIDE 105 mmol/L (98-107); CREATININE 0.6 mg/dL (0.6-1.3); GLUCOSE 164 mg/dL (74-106); MAGNESIUM 1.9 mg/dL (1.8-2.4); PHOSPHORUS 3.5 mg/dL (2.5-4.9); POTASSIUM 4.7 mmol/L (3.5-5.1); SODIUM SERUM 139 mmol/L (136-145); UREA NITROGEN, BLOOD 36 mg/dL (7-18)
[2018-05-04 06:57] LABS: HEMATOCRIT 20 % (39-51); HEMOGLOBIN 6.5 g/dL (13.5-17.5)
--- NOTE | 2018-05-04 07:00 | NUR ---
RN MS TELE CLOSING NOTES PATIENT IN BED SLEEPING BUT EASILY AROUSABLE, RESPIRATIONS EVEN AND UNLABORED WITH EQUAL RISE AND FALL OF CHEST, HEAD OF ELEVATED FOR ASPIRATION PRECAUTIONS. NO RESIDUALS PRESENT TOLERATING FEEDING WELL. GTUBE IS INTACT AND PATENT. ON MECHANICAL VENT PLUGGED INTO RED PLUG AND PROPERLY WORKING AND AMBU BAG AT BEDSIDE, SETTINGS AC 10, TV 450, FI02 40%,PEEP 5 PORTEX #6, CONTINUOUS PULSE OX AT BEDSIDE AT 100%, TRACH TOE CHANGED, INNER CANNULA IN PLACE, ON CONE SEWER SR AT 97. NOTED WITH BILATERAL LOWER EXTREMITY EDEMA +1 PITTING , SKIN TEAR TO RIGHT FA DRESSING CHANGED,DRY AND INTACT, AND SCATTERED LARGE DISCOLORATIONS TO BOTH UPPER EXTREMITIES WOUND CARE PROVIDED ORDERED TO SACRAL AND OFFLOADED. IV SITE TO LEFT FA #20G SL INTACT AND PATENT NO REDNESS, NO INFILTRATION PRESENT, SAFETY PRECAUTIONS IN PLACE, LOW BED AND LOCKED AND CALL LIGHT KEPT WITHIN REACH, ALL NEEDS ATTENDED AT THIS TIME, WILL CONTINUE TO MONITOR AND ENDORSE TO NEXT SHIFT .CONDOM CATHETER INTACT AND DRAINING NOTED URINE COLOR YELLOW, ON FIRST STEP SPECIAL STACEY MATTRESS FOR WOUND AND SKIN MANAGEMENT AND PROPERLY WORKING. PATIENT APPEARS COMFORTABLE AT THIS TIME.
--- NOTE | 2018-05-04 07:35 | NUR ---
TEMPLATE LAYOUT WORKER NOTES CRITICAL LAB VALUE HGB 6.5 ,HCT20 MADE DIANE AWARE MADE AWARE OF B/P WITHIN NORMAL LIMITS, NEW ORDER FOR REPEAT CBC. WILL NOTE AND CARRY OUT
--- NOTE | 2018-05-04 07:40 | NUR ---
FUR LINER OPENING NOTE PT IN STABLE CONDITION, A&0 X2, WITH NO SIGNS OF SOB OR DISTRESS. PT STILL ON VENT TOLERATING WELL. GTUBE INTACT AND PATENT. HOB UP FOR ASPIRATION PRECAUTIONS. BED IN LOWEST POSITION, UPPER BED RAILS UP, AND CALL LIGHT WITHIN REACH. WILL CONT. TO MONITOR.
--- NOTE | 2018-05-04 07:41 | NUR ---
PT REC'D TRACHED VIA PORTEX 6 ON MECH VENT ON AC MODE. NO RESP DISTRESS OR SOB NOTED. PT ALERT AND AWAKE. SX'D FOR THICK SMALL AMT OF PALE YELLOW SECRETIONS. BEAMER HAND CUFF PRESSURE NOTED. ALARMS ARE SET AND AUDIBLE. NO RESP DISTRESS NOTED. WILL CONTINUE TO MONITOR. Addendum: 05/04/18 at 1554 by BHAVANA HARPER RT Amended: Links added.
[2018-05-04 08:54] LABS: BASOPHILS # (AUTO) 0.1 /CMM (0.0-0.2); BASOPHILS % (AUTO) 0.5 % (0.0-2.0); EOSINOPHILS % (AUTO) 0.2 % (0.0-6.0); HEMATOCRIT 21 % (39-51); LYMPHOCYTES # (AUTO) 0.4 /CMM (0.8-4.8); LYMPHOCYTES % (AUTO) 4.2 % (20.0-44.0); MEAN CORPUSCULAR HGB CONC 32 g/dl (31.0-36.0); MEAN CORPUSCULAR VOLUME 86 fL (80-96); MONOCYTES # (AUTO) 0.7 /CMM (0.1-1.30); MONOCYTES % (AUTO) 7.4 % (2.0-12.0); NEUTROPHILS # (AUTO) 8.8 /CMM (1.8-8.9); NEUTROPHILS % (AUTO) 87.7 % (43.0-81.0); PLATELET COUNT (AUTO) 174 /CMM (150-450); RED BLOOD CELL COUNT(AUTO) 2.42 MIL/uL (4.5-6.0)
[2018-05-04] MEDS: ASCORBIC ACID 500 MG TABLET GT SCH (09:18)
[2018-05-04] MEDS: MULTIVITAMINS,THERAGRAN 1 UDTAB TABLET GT SCH (09:18)
[2018-05-04] MEDS: PROSOURCE / PROSTAT (PYXIS) 30 ML UDC GT SCH ×2 (09:18→17:44)
[2018-05-04] MEDS: SUCRALFATE 1 G/10 ML UDC GT SCH (09:18)
[2018-05-04] MEDS: DOCUSATE SODIUM LIQ 100 MG/10 ML UDC GT SCH ×2 (09:18→17:43)
[2018-05-04] MEDS: FERROUS SULFATE UDC 300 MG/5 ML UDC GT SCH ×2 (09:18→17:43)
[2018-05-04] MEDS: HYDROGEL DRESSING 90 GM TUBE TP SCH (09:20)
[2018-05-04] MEDS: Z GUARD REMEDY 2 OZ OINT TP SCH (09:20)
[2018-05-04 09:30] LABS: BAND % (MANUAL) 3 % (0.0-5.0); LYMPHOCYTES % (MANUAL) 4 % (16-48); MONOCYTES % (MANUAL) 3 % (0-11.0); NEUTROPHILS % (MANUAL) 90 (42-76)
[2018-05-04] MEDS: GLUCERNA 1.2 1,000 ML BOTTLE PEG PRN (09:33)
[2018-05-04 09:41] LABS: HEMOGLOBIN 6.6 g/dL (13.5-17.5)
--- NOTE | 2018-05-04 10:00 | NUR ---
HOSPICE SPIRITUAL CARE COORDINATOR NOTES NOTED SKIN TEAR AT LEFT HAND AND FOREARM, PHOTOS TAKEN AND PLACED IN CHART, WITH SCANT BLEEDING, PT ADMITTED WITH MULTIPLE SKIN DISCOLORATIONS TO LEFT AND RIGHT UPPER EXTREMITIES, INITIAL TREATMENT DONE, DRESSING APPLIED, HANDLED PT GENTLY, MD INFORMED, KEPT PT COMFORTABLE.
--- NOTE | 2018-05-04 10:25 | NUR ---
MS RN NOTE CALLED [facility] MANAGER STAFFING LINE TO REPORT REPEAT HGB OF 6.6 TO DIANE (ANH) SPOKE WITH LESLEY. AWAITING RETURN CALL.
--- NOTE | 2018-05-04 11:39 | NUR ---
MS RN NOTE RECEIVED NEW ORDER FROM DIANE (ANH) FOR 1 UNIT OF PRBC. MIDLINE ORDER ALSO GIVEN.
--- NOTE | 2018-05-04 13:50 | NUR ---
MS RN NOTE INFORMED PT OF MIDLINE PROCEDURE. MIDLINE PLACED BY SITA LEE ON THE LEFT UPPER ARM #18. INTACT AND PATENT. PT. TOLERATED WELL.
[2018-05-04 17:43] LABS: OCCULT BLOOD STOOL POSITIVE (NEGATIVE)
[2018-05-04] MEDS: ACETAMINOPHEN 650 MG/20.3 ML UDC GT PRN (18:00)
--- NOTE | 2018-05-04 18:44 | NUR ---
RESEARCH MANAGER NOTE PT REMAINS IN STABLE CONDITION, A&O X3. PT. NO SIGNS OF SOB/DISTRESS. MIDLINE PATENT AND STABLE WITH PRCs ONGOING. NO SIGNS OF REACTION NOTED, ALL VS STABLE AND DOCUMENTED. GTUBE ALSO PATENT AND INTACT WITH FEEDING RUNNING. NO PAIN NOTED. SAFETY MEASURES IN PLACE WITH, BED IN LOWEST POSITION, UPPER BED RAILS UP X2 AND CALL LIGHT WITHIN REACH. WILL ENDORSE TO NEXT SHIFT FOR AMANDA.
--- NOTE | 2018-05-04 19:05 | NUR ---
SPUD SORTER INITIAL NOTES PATIENT IN BED SLEEPING BUT EASILY AROUSABLE, RESPIRATIONS EVEN AND UNLABORED WITH EQUAL RISE AND FALL OF CHEST, HEAD OF ELEVATED FOR ASPIRATION PRECAUTIONS. GTUBE IS INTACT AND PATENT RUNNING AT 50ML/HR. ON MECHANICAL VENT, SETTINGS AC 10, TV 450, FI02 40%,PEEP 5, PORTEX #6, CONTINUOUS PULSE OX AT BEDSIDE AT 100%, ON SWATCH CUTTER SR AT 89 WITH PACs. CURRENTLY HAVING BLOOD TRANSFUSION RUNNING AT 120M/HR, NO S/S OF ADVERSE EFFECTS. CONDOM CATHETER INTACT AND DRAINING NOTED URINE COLOR YELLOW. SAFETY PRECAUTIONS IN PLACE, LOW BED AND LOCKED AND CALL LIGHT KEPT WITHIN REACH, BED IN LOW, LOCKED POSITION. WILL CONTINUE TO MONITOR ACCORDINGLY. PATIENT APPEARS COMFORTABLE AT THIS TIME.
--- NOTE | 2018-05-04 20:04 | NUR ---
REAL TIME OPERATOR NOTES BLOOD TRANSFUSION DONE. VITAL SIGNS: BP- 121/56, HR- 86, RR-16, TEMP-98.8 SPO2-100%. PATIENT IS SLEEPING, BUT EASILY AROUSABLE. NO DISTRESS NOTED. NO COMPLAINTS OF THIS TIME
--- NOTE | 2018-05-04 20:10 | NUR ---
RT PT RECEIVED TRACHED ON [facility] VENT. NO SIGNS OF RESP DISTRESS NOTED AT THIS TIME. AIRWAY PATENT AND SECURED. PT SUCTIONED. ALARMS SET AND AUDIBLE. AMBUBAG AT BEDSIDE. VENT CONNECTED TO RED OUTLET. WILL CONT. TO MONITOR. Addendum: 05/04/18 at 2013 by PITER FRANCO RT Amended: Links added.
--- NOTE | 2018-05-04 23:29 | NUR ---
LOOM WINDER TENDER NOTES BSL CHECKED- 125MG/DL. NO INSULIN COVERAGE PER SLIDING SCALE
[2018-05-05] VITALS: BP 118/72
[2018-05-05] MEDS: CEFTAZIDIME 1 G in IV D5W 50 ML IV SCH ×3 (04:53→20:38)
[2018-05-05] MEDS: BLOOD SUGAR DIAGNOSTIC 1 EACH STRIP IN SCH ×4 (05:44→23:50)
[2018-05-05 06:20] LABS: BASOPHILS % (AUTO) 0.2 % (0.0-2.0); EOSINOPHILS % (AUTO) 0.4 % (0.0-6.0); HEMATOCRIT 28 % (39-51); HEMOGLOBIN 9.1 g/dL (13.5-17.5); LYMPHOCYTES # (AUTO) 0.7 /CMM (0.8-4.8); LYMPHOCYTES % (AUTO) 7.2 % (20.0-44.0); MEAN CORPUSCULAR HGB CONC 33 g/dl (31.0-36.0); MEAN CORPUSCULAR VOLUME 87 fL (80-96); MONOCYTES # (AUTO) 0.9 /CMM (0.1-1.30); MONOCYTES % (AUTO) 9.9 % (2.0-12.0); NEUTROPHILS # (AUTO) 7.6 /CMM (1.8-8.9); NEUTROPHILS % (AUTO) 82.3 % (43.0-81.0); PLATELET COUNT (AUTO) 158 /CMM (150-450); RED BLOOD CELL COUNT(AUTO) 3.17 MIL/uL (4.5-6.0); WHITE BLOOD COUNT (AUTO) 9.3 K/uL (4.3-11.0)
[2018-05-05 06:30] LABS: CALCIUM, SERUM 8.8 mg/dL (8.5-10.1); CARBON DIOXIDE 31 mmol/L (21-32); CHLORIDE 106 mmol/L (98-107); CREATININE 0.7 mg/dL (0.6-1.3); GLUCOSE 131 mg/dL (74-106); PHOSPHORUS 2.6 mg/dL (2.5-4.9); POTASSIUM 4.6 mmol/L (3.5-5.1); SODIUM SERUM 141 mmol/L (136-145); UREA NITROGEN, BLOOD 38 mg/dL (7-18)
--- NOTE | 2018-05-05 06:56 | NUR ---
PRODUCE INSPECTOR CLOSING NOTES PATIENT IN BED SLEEPING BUT EASILY AROUSABLE, RESPIRATIONS EVEN AND UNLABORED WITH EQUAL RISE AND FALL OF CHEST, HEAD OF ELEVATED FOR ASPIRATION PRECAUTIONS. NO RESIDUALS PRESENT TOLERATING FEEDING @ 50ML/HR WELL. GTUBE IS INTACT AND PATENT. ON MECHANICAL VENT WITH THE FOLLOWING SETTINGS: AC 10, TV 450, FIO2 40%, PEEP 5 PORTEX #6, CONTINUOUS PULSE OX AT BEDSIDE AT 100%, ON KITCHEN DESIGNER SR AT 93. NOTED WITH BILATERAL LOWER EXTREMITY EDEMA +1 PITTING , SKIN TEAR TO RIGHT FA DRESSING CHANGED,DRY AND INTACT, AND SCATTERED LARGE DISCOLORATIONS TO BOTH UPPER EXTREMITIES. WOUND CARE TO SACRUM PROVIDED ORDERED AND OFFLOADED. MIDLINE ON IVAN, INTACT AND PATENT. SAFETY PRECAUTIONS IN PLACE, LOW BED AND LOCKED AND CALL LIGHT KEPT WITHIN REACH, ALL NEEDS ATTENDED AT THIS TIME. CONDOM CATHETER INTACT AND DRAINING NOTED URINE COLOR YELLOW, EMPTIED 300ML. ON FIRST STEP SPECIAL STACEY MATTRESS FOR WOUND AND SKIN MANAGEMENT. PATIENT APPEARS COMFORTABLE AT THIS TIME.
--- NOTE | 2018-05-05 07:29 | NUR ---
COIL TAPER OPENING NOTES PATIENT RECEIVED AWAKE IN BED IN NO ACUTE SIGNS OF DISTRESS. HOB ELEVATED. A/O X3. ABLE TO RESPOND BY MOVING HIS HEAD AND MOUTHING WORDS, NO C/O PAIN OR DISCOMFORTS AT THIS TIME. ON MECHANICAL VENTILATOR @ SETTINGS OF AC 10, TV 450, FI02 40%, PEEP 5, PORTEX #6, CONTINUOUS PULSE OX AT BEDSIDE WITH SP02 OF 100%, ON TELE-MONITORING WITH CURRENT READING OF SR AT 93 WITH OCCASIONAL PAC's. IVAN MIDLINE INTACT AND PATENT. G-TUBE IS INTACT AND PATENT, GLUCERNA 1.2 @ 50ML/HR ONGOING AND TOLERATED. ASPIRATION PRECAUTIONS MAINTAINED. CONDOM CATHETER IN PLACE, DRAINING CLEAR YELLOW URINE TO URINARY BAG. SAFETY PRECAUTIONS IN PLACE. BED ON LOW LOCKED POSITION WITH SR UP X3. CALL LIGHT WITHIN REACH. WILL CONTINUE TO MONITOR ACCORDINGLY.
[2018-05-05 08:34] VITALS: BP 134/74
[2018-05-05] MEDS: PROSOURCE / PROSTAT (PYXIS) 30 ML UDC GT SCH ×2 (08:46→16:17)
[2018-05-05] MEDS: MULTIVITAMINS,THERAGRAN 1 UDTAB TABLET GT SCH (08:46)
[2018-05-05] MEDS: DOCUSATE SODIUM LIQ 100 MG/10 ML UDC GT SCH ×2 (08:46→16:17)
[2018-05-05] MEDS: ASCORBIC ACID 500 MG TABLET GT SCH (08:46)
[2018-05-05] MEDS: FERROUS SULFATE UDC 300 MG/5 ML UDC GT SCH ×2 (08:46→16:17)
[2018-05-05] MEDS: SUCRALFATE 1 G/10 ML UDC GT SCH (08:46)
[2018-05-05] MEDS: Z GUARD REMEDY 2 OZ OINT TP SCH (08:47)
[2018-05-05] MEDS: HYDROGEL DRESSING 90 GM TUBE TP SCH (08:48)
[2018-05-05 09:35] LABS: IRON, SERUM 26 ug/dl (50-175); TOTAL IRON BINDING CAPACITY 136 ug/dl (250-450)
[2018-05-05] MEDS: INSULIN REGULAR, HUMAN 100 UNIT/ML 3 ML VIAL SQ PRN ×3 (11:38→23:50)
[2018-05-05 12:00] VITALS: BP 130/71
--- NOTE | 2018-05-05 14:17 | NUR ---
RN NOTES PT NOTED WITH VERY FRAGILE SKIN AND WHILE POSITIONING PT ON HIS SIDE, PT ARMS WERE PLACE ON HIS ABDOMEN AND PT'S RIGHT HAND ACCIDENTALLY HOLD ON TO HIS LEFT LOWER FOREARM CAUSING SKIN TEAR MEASURING 6 INCHES LONG. PHOTO TAKEN AND FILED ON CHART. CLEANSE SKIN TEAR WITH NS, COVERED WITH MEPILEX AND COVERED WITH KERLIX. WILL CONTINUE TO HANDLE PT GENTLY. WILL CONTINUE TO MONITOR..
[2018-05-05] MEDS: GLUCERNA 1.2 1,000 ML BOTTLE PEG PRN (14:53)
[2018-05-05 16:07] VITALS: BP 127/73
--- NOTE | 2018-05-05 18:40 | NUR ---
TRAFFIC WORKER CLOSING NOTES PATIENT IN BED AWAKE AND LYING COMFORTABLY AT MODERATE HIGH BACKREST POSITION. A/O X3. ABLE TO RESPOND BY MOVING HIS HEAD AND MOUTHING WORDS. CONTINUES ON MECHANICAL VENTILATOR @ PRESCRIBED SETTINGS OF AC 10, TV 450, FI02 40%, PEEP 5, TOLERATING SETTINGS WELL WITH NO ACUTE DISTRESS NOTED. ON TELE-MONITORING WITH CURRENT READING OF SR AND HR OF 95 WITH OCCASIONAL PAC's. IVAN MIDLINE INTACT AND PATENT. ON GLUCERNA 1.2 @ 50ML/HR VIA G-TUBE IN PROGRESS AND TOLERATING WELL. ASPIRATION PRECAUTIONS MAINTAINED. CONDOM CATHETER IN PLACE, DRAINING CLEAR YELLOW URINE TO URINARY BAG. PT TURNED AND REPOSITIONED FROM SIDE TO SIDE Q2HRS AND PRN. KEPT CLEAN, DRY AND COMFORTABLE. SAFETY MEASURES KEPT IN PLACE. BED IN LOW LOCKED POSITION WITH SR UP X3. CALL LIGHT WITHIN REACH. ALL NEEDS AND CARE PROVIDED WELL. WILL ENDORSE TO GREEN ENERGY MARKETING ANALYST NURSE FOR AMANDA.
--- NOTE | 2018-05-05 19:00 | NUR ---
ELEVATED MOTORMAN OPENING NOTES PATIENT RECEIVED AWAKE IN BED IN NO ACUTE SIGNS OF DISTRESS. HOB ELEVATED. A/O X3. ABLE TO RESPOND BY MOVING HIS HEAD AND MOUTHING WORDS, NO C/O PAIN OR DISCOMFORTS AT THIS TIME. ON MECHANICAL VENTILATOR WITH SETTINGS OF AC 10, TV 450, FI02 40%, PEEP 5, PORTEX #6, CONTINUOUS PULSE OX AT BEDSIDE WITH SPO2 OF 100%, ON TELE MONITOR WITH CURRENT READING OF SR AT 99 WITH OCCASIONAL PAC's. IVAN MIDLINE INTACT AND PATENT. G-TUBE IS INTACT AND PATENT, GLUCERNA 1.2 @ 50ML/HR ONGOING AND TOLERATED. ASPIRATION PRECAUTIONS MAINTAINED. CONDOM CATHETER IN PLACE, DRAINING CLEAR YELLOW URINE TO URINARY BAG. SAFETY PRECAUTIONS IN PLACE. BED ON LOW LOCKED POSITION WITH SIDERAILS UP X3. CALL LIGHT WITHIN REACH. WILL CONTINUE TO MONITOR ACCORDINGLY.
[2018-05-05 20:00] VITALS: BP 126/84
--- NOTE | 2018-05-05 20:35 | NUR ---
ARMORED CAR MESSENGER NOTES Patient's skin very fragile. While pictures were taken, noted oozing of serousanginous fluid from the skin tear of left forearm. Cleansed with NS, covered with mepilex and wrapped with kerlix.
--- NOTE | 2018-05-05 23:50 | NUR ---
RN NOTES BSL CHECKED- 136MG/DL. 2 UNITS OF INSULIN GIVEN PER SLIDING SCALE
[2018-05-06] VITALS: BP 144/76
[2018-05-06 04:00] VITALS: BP 132/74
[2018-05-06] MEDS: CEFTAZIDIME 1 G in IV D5W 50 ML IV SCH ×3 (04:25→21:49)
[2018-05-06] MEDS: BLOOD SUGAR DIAGNOSTIC 1 EACH STRIP IN SCH ×3 (06:01→17:31)
[2018-05-06] MEDS: INSULIN REGULAR, HUMAN 100 UNIT/ML 3 ML VIAL SQ PRN ×3 (06:05→17:54)
--- NOTE | 2018-05-06 06:05 | NUR ---
RN NOTES BSL CHECKED- 134MG/DL. 2 UNITS OF INSULIN GIVEN PER SLIDING SCALE
[2018-05-06 06:18] LABS: BASOPHILS % (AUTO) 0.1 % (0.0-2.0); EOSINOPHILS % (AUTO) 0.5 % (0.0-6.0); HEMATOCRIT 26 % (39-51); HEMOGLOBIN 8.7 g/dL (13.5-17.5); LYMPHOCYTES # (AUTO) 0.7 /CMM (0.8-4.8); LYMPHOCYTES % (AUTO) 6.9 % (20.0-44.0); MEAN CORPUSCULAR HGB CONC 33 g/dl (31.0-36.0); MEAN CORPUSCULAR VOLUME 87 fL (80-96); MONOCYTES % (AUTO) 9.3 % (2.0-12.0); NEUTROPHILS # (AUTO) 8.7 /CMM (1.8-8.9); NEUTROPHILS % (AUTO) 83.2 % (43.0-81.0); PLATELET COUNT (AUTO) 182 /CMM (150-450); RED BLOOD CELL COUNT(AUTO) 3.06 MIL/uL (4.5-6.0); WHITE BLOOD COUNT (AUTO) 10.5 K/uL (4.3-11.0)
[2018-05-06 06:30] LABS: CALCIUM, SERUM 8.2 mg/dL (8.5-10.1); CARBON DIOXIDE 30 mmol/L (21-32); CHLORIDE 105 mmol/L (98-107); CREATININE 0.7 mg/dL (0.6-1.3); GLUCOSE 152 mg/dL (74-106); MAGNESIUM 1.9 mg/dL (1.8-2.4); PHOSPHORUS 2.3 mg/dL (2.5-4.9); SODIUM SERUM 142 mmol/L (136-145); UREA NITROGEN, BLOOD 34 mg/dL (7-18)
--- NOTE | 2018-05-06 07:00 | NUR ---
VP GLOBAL/OPENING NOTES RECEIVED PT. IN BED A&OX3. TELE MONITOR IS READING SINUS NORMAL TO TACHYCARDIA 99-110 BPM. PT. IS BREATHING UNLABORED ON A MECHANICAL VENTILATOR VIA TRACHEOSTOMY. NO S/S OF ACUTE DISTRESS. IV ACCESS IS INTACT AND PATENT. G TUBE FEEDING IS RUNNING AT 50 ML/HR. CATHETER HAS CLEAR, AND YELLOW URINE OUTPUT. BED IS IN LOWEST, AND LOCKED POSITION. 2 SIDE RAILS UP. CALL LIGHT WITHIN REACH. ALL NEEDS MET.
--- NOTE | 2018-05-06 07:01 | NUR ---
LABORATORY MECHANICAL TECHNICIAN CLOSING NOTES PATIENT IN BED SLEEPING BUT EASILY AROUSABLE, RESPIRATIONS EVEN AND UNLABORED WITH EQUAL RISE AND FALL OF CHEST, HEAD OF ELEVATED FOR ASPIRATION PRECAUTIONS. NO RESIDUALS PRESENT TOLERATING FEEDING @ 50ML/HR WELL. GTUBE IS INTACT AND PATENT. ON MECHANICAL VENT WITH THE FOLLOWING SETTINGS: AC 10, TV 450, FIO2 40%, PEEP 5 PORTEX #6, CONTINUOUS PULSE OX AT BEDSIDE AT 100%, ON MAINTENANCE SUPERVISOR ELECTRICAL SR-ST AT 100-101. NOTED WITH BILATERAL LOWER EXTREMITY EDEMA +1 PITTING , SKIN TEAR TO RIGHT FA DRESSING CHANGED,DRY AND INTACT, AND SCATTERED LARGE DISCOLORATIONS TO BOTH UPPER EXTREMITIES. WOUND CARE TO SACRUM PROVIDED ORDERED AND OFFLOADED. MIDLINE ON IVAN, INTACT AND PATENT. SAFETY PRECAUTIONS IN PLACE, LOW BED AND LOCKED AND CALL LIGHT KEPT WITHIN REACH. ALL NEEDS ATTENDED. CONDOM CATHETER IN PLACE, NOTED URINE COLOR YELLOW, EMPTIED 300ML. ON FIRST STEP SPECIAL STACEY MATTRESS FOR WOUND AND SKIN MANAGEMENT. PATIENT APPEARS COMFORTABLE AT THIS TIME.
[2018-05-06] MEDS: CLONIDINE HCL 0.1 MG TABLET GT PRN (07:28)
[2018-05-06 08:26] VITALS: BP 133/72
[2018-05-06 09:31] LABS: ABG BASE EXCESS 6.8 mmol/L; ABG OXYGEN SATURATION 96.4 % (92.0-98.5); ABG PCO2 37.6 mmHg (35.0-45.0); ABG PH 7.521 (7.350-7.450); ABG PO2 87.8 mmHg (75.0-100.0); AaDO2 154.2 mmHg; COHb 0.6 % (0.5-1.5); MetHb 0.2 % (0.0-1.5); O2Hb 95.6 % (94.0-97.0); PEEP,BG 5 cm H2O; SITE, ABG Right Radial; VT, ABG 450 mL
[2018-05-06] MEDS: HYDROGEL DRESSING 90 GM TUBE TP SCH (09:31)
[2018-05-06] MEDS: Z GUARD REMEDY 2 OZ OINT TP SCH (09:31)
[2018-05-06] MEDS: SUCRALFATE 1 G/10 ML UDC GT SCH (09:36)
[2018-05-06] MEDS: ASCORBIC ACID 500 MG TABLET GT SCH (09:36)
[2018-05-06] MEDS: MULTIVITAMINS,THERAGRAN 1 UDTAB TABLET GT SCH (09:36)
[2018-05-06] MEDS: DOCUSATE SODIUM LIQ 100 MG/10 ML UDC GT SCH ×2 (09:36→16:26)
[2018-05-06] MEDS: FERROUS SULFATE UDC 300 MG/5 ML UDC GT SCH ×2 (09:36→16:26)
[2018-05-06] MEDS: PROSOURCE / PROSTAT (PYXIS) 30 ML UDC GT SCH ×2 (09:44→16:26)
--- NOTE | 2018-05-06 11:57 | NUR ---
PT. WAS SEE BY SPEECH THERAPIST. PER ST, PT. IS ABLE TO TOLERATE SMALL SIPS OF WATER FROM A SPOON AND ICE CHIPS, 1 CHIP AT A TIME FOR ORAL GRATIFICATION.
[2018-05-06] MEDS ORDERED: NEUTRA PHOS 1 POWD.PACKET GT ONE (13:30)
[2018-05-06 16:01] VITALS: BP 125/60
[2018-05-06] MEDS: GLUCERNA 1.2 1,000 ML BOTTLE PEG PRN (16:25)
--- NOTE | 2018-05-06 19:40 | NUR ---
TELE/RN OPENING NOTES PT RECEIVED AWAKE, ON MECHANICAL VENTILATOR CONNECTED TO RED OUTLET WITH SETTINGS AC 10, PEEP 5, FIO2 40%, TV 400. ON EXTERNAL HEART MONITOR SHOWING ST 110. IV TO LFA AND IVAN MIDLINE PATENT AND INTACT. GT FEEDING RUNNING GLUCERNA AT 50ML/HR. NO RESIDUALS NOTED. CONDOM CATH DRAINING TO GRAVITY. HOB ELEVATED. BED IN LOW/LOCKED POSITION WITH CALL LIGHT IN REACH. BILATERAL UPPER SIDE RAILS IN PLACE. WILL CONTINUE TO MONITOR
[2018-05-06 19:57] VITALS: BP 147/86
[2018-05-06 20:00] VITALS: BP 147/86
--- NOTE | 2018-05-06 20:01 | NUR ---
REVENUE STAMP CUTTER/CLOSING NOTES PT. IS IN BED A&OX3. TELE MONITOR IS READING SINUS NORMAL TO TACHYCARDIA 99-110 BPM. PT. IS BREATHING UNLABORED ON A MECHANICAL VENTILATOR VIA TRACHEOSTOMY. NO S/S OF ACUTE DISTRESS. IV ACCESS IS INTACT AND PATENT. G TUBE FEEDING IS RUNNING AT 50 ML/HR. CATHETER HAS CLEAR, AND YELLOW URINE OUTPUT. BED IS IN LOWEST, AND LOCKED POSITION. 2 SIDE RAILS UP. CALL LIGHT WITHIN REACH. ALL NEEDS MET. WILL ENDORSE REPORT TO NURSE.
[2018-05-07] VITALS: BP 129/71
[2018-05-07] MEDS: BLOOD SUGAR DIAGNOSTIC 1 EACH STRIP IN SCH ×4 (00:32→18:13)
[2018-05-07] MEDS: INSULIN REGULAR, HUMAN 100 UNIT/ML 3 ML VIAL SQ PRN ×4 (00:38→18:15)
[2018-05-07 04:00] VITALS: BP 139/77
[2018-05-07] MEDS: CEFTAZIDIME 1 G in IV D5W 50 ML IV SCH ×3 (05:23→20:20)
[2018-05-07 06:04] LABS: BASOPHILS % (AUTO) 0.1 % (0.0-2.0); EOSINOPHILS % (AUTO) 0.2 % (0.0-6.0); HEMATOCRIT 27 % (39-51); HEMOGLOBIN 8.7 g/dL (13.5-17.5); LYMPHOCYTES % (AUTO) 7.1 % (20.0-44.0); MEAN CORPUSCULAR HGB CONC 32 g/dl (31.0-36.0); MEAN CORPUSCULAR VOLUME 87 fL (80-96); MONOCYTES # (AUTO) 1.3 /CMM (0.1-1.30); MONOCYTES % (AUTO) 9.1 % (2.0-12.0); NEUTROPHILS # (AUTO) 12.2 /CMM (1.8-8.9); NEUTROPHILS % (AUTO) 83.5 % (43.0-81.0); PLATELET COUNT (AUTO) 232 /CMM (150-450); RED BLOOD CELL COUNT(AUTO) 3.11 MIL/uL (4.5-6.0); WHITE BLOOD COUNT (AUTO) 14.7 K/uL (4.3-11.0)
[2018-05-07 06:26] LABS: CARBON DIOXIDE 31 mmol/L (21-32); CHLORIDE 105 mmol/L (98-107); CREATININE 0.8 mg/dL (0.6-1.3); GLUCOSE 151 mg/dL (74-106); PHOSPHORUS 3.1 mg/dL (2.5-4.9); POTASSIUM 4.3 mmol/L (3.5-5.1); SODIUM SERUM 142 mmol/L (136-145); UREA NITROGEN, BLOOD 45 mg/dL (7-18)
[2018-05-07 06:49] LABS: CALCIUM, SERUM 8.3 mg/dL (8.5-10.1)
--- NOTE | 2018-05-07 07:25 | NUR ---
PANEL BUILDER OPENING NOTE RECEIVED PT IN BED, ALERT AND ORIENTED X4. BREATHING IS EVEN AND UNLABORED WITH CURRENT MECHANICAL VENTILATOR SETTINGS. PT ON COMMERCIAL REAL ESTATE ATTORNEY WITH SINUS RHYTHM, HR IN 90'S. L UPPER ARM MIDLINE #18G IS PATENT, CLEAN, DRY AND INTACT. CONDOM CATHETER NOTED TO BE DRAINING CLEAR, YELLOW URINE. ALL NEEDS ATTENDED TO. BED IS LOCKED AND IN LOWEST POSITION, SIDE RAILS UP X2, BED ALARM ON, CALL LIGHT WITHIN REACH.
--- NOTE | 2018-05-07 07:32 | NUR ---
TELE/RN CLOSING NOTES PT RESTING WITH EYES CLOSED. OPENS EYES TO NAME. VENT SETTINGS MAINTAINED WITH CONTINUOUS O2 MONITOR SHOWING 96%. ABLE TO MAKE NEEDS KNOWN. ON TELE MONITOR, SR-ST HR CURRENTLY 96. DOTTIE CATH IN PLACE DRAINING URINE TO GRAVITY. GT FEEDING RUNNING ORDERED, NO RESIDUALS NOTED. IV TO LFA PATENT AND INTACT AND IVAN MIDLINE PATENT AND INTACT. WOUND CARE PROVIDED ORDERED. TURNED/REPOSITIONED Q2H. HEELS OFFLOADED. BED IN LOW/LOCKED POSITION WITH CALL LIGHT IN REACH, SIDE RAILS UPX3. ENDORSED TO DAY SHIFT RN AMANDA.
[2018-05-07 08:00] VITALS: BP_SYST 128; BP_DIAS 51; BP_DIAS 57
[2018-05-07] MEDS: SUCRALFATE 1 G/10 ML UDC GT SCH (08:51)
[2018-05-07] MEDS: DOCUSATE SODIUM LIQ 100 MG/10 ML UDC GT SCH ×2 (08:51→17:24)
[2018-05-07] MEDS: PROSOURCE / PROSTAT (PYXIS) 30 ML UDC GT SCH ×2 (08:51→17:24)
[2018-05-07] MEDS: ASCORBIC ACID 500 MG TABLET GT SCH (08:51)
[2018-05-07] MEDS: MULTIVITAMINS,THERAGRAN 1 UDTAB TABLET GT SCH (08:51)
[2018-05-07] MEDS: HYDROGEL DRESSING 90 GM TUBE TP SCH (08:51)
[2018-05-07] MEDS: Z GUARD REMEDY 2 OZ OINT TP SCH (08:55)
[2018-05-07] MEDS: FERROUS SULFATE UDC 300 MG/5 ML UDC GT SCH ×2 (08:55→17:24)
[2018-05-07 11:38] VITALS: BP 145/96
[2018-05-07] MEDS ORDERED: CEFT1VIA7 IM (14:18)
--- NOTE | 2018-05-07 15:10 | NUR ---
SESSIONS CLERK NOTE DISCHARGE HELD DUE TO ELEVATED RESPIRATIONS. CHARGE NURSE AND TRACK LAMINATING MACHINE TENDER NOTIFIED, RT CALLED FOR PT ASSESSMENT. BP: 123/1, HR: 98, T: 98.6, R: 35. WHEN ASKED IF PT WAS IN PAIN, PT NODDED HEAD UP AND DOWN. WILL ADMINISTER PAIN MEDICATION ORDERED.
--- NOTE | 2018-05-07 15:23 | NUR ---
RT RT RECD PT TRACHED INTACT AND SECURED ON MECH VENT BETH ORDERED SETTING VENT PLUGGED IN RED OUTLET BAG AND MASK AT [facility] . SX THIN PALE YELLOW SECRETIONS NO RESP DISTRESS NOTED ATT WILL CONT TO MONITOR.
[2018-05-07 16:00] VITALS: BP 119/66
--- NOTE | 2018-05-07 16:00 | NUR ---
SALES AND MARKETING ASSOCIATE NOTE REPORT GIVEN TO JESUS MONTAGUE AT [facility] FOR CONTINUITY OF CARE.
[2018-05-07] MEDS: HYDROCODONE/APAP 5/325MG 1 EACH TABLET GT PRN (17:25)
--- NOTE | 2018-05-07 18:37 | NUR ---
MARKETING ADMINISTRATIVE ASSISTANT NOTE INFORMED DR. TAMEZ OF INABILITY TO D/C PT. RECEIVED ORDERS TO "HAVE RT COME REPLACE INNER CANNULA NEEDED". WILL IMPLEMENT ORDERS.
--- NOTE | 2018-05-07 18:45 | NUR ---
DOG SHOW JUDGE NOTE SPOKE WITH CLARI AT [facility] TO UPDATE ON D/C STATUS. VERIFIED UNDERSTANDING AND ASKED FOR THE NEXT NURSE WHO WILL BE DISCHARGING THE PT CALL AND PROVIDE REPORT WELL. WILL ENDORSE TO PLASTIC INJECTION MOLD MAKER RN.
--- NOTE | 2018-05-07 19:09 | NUR ---
RN TRAVELING CLOSING NOTE PT IN BED, SLEEPING AND EASILY AROUSABLE. BREATHING IS EVEN AND UNLABORED WITH CURRENT MECHANICAL VENTILATOR SETTINGS, CURRENT RATE IS 28. PT ON ANIMAL CARE SUPERVISOR WITH SINUS RHYTHM, HR IN 90'S. PT IS PENDING D/C AND IS WITHOUT IV ACCESS, DR. JOSIE TAMEZ AWARE. CONDOM CATHETER NOTED TO BE DRAINING CLEAR, YELLOW URINE. PT TOLERATED CURRENT G TUBE FEEDING DURING THE SHIFT WITH 5ML RESIDUALS. WOUND CARE PROVIDED ORDERED. ALDS PROVIDED AND PT ASSISTED TO TURN AND REPOSITION Q2H DURING THE SHIFT. ALL NEEDS ATTENDED TO. BED IS LOCKED AND IN LOWEST POSITION, SIDE RAILS UP X2, BED ALARM ON, CALL LIGHT WITHIN REACH. WILL ENDORSE TO COLOR TECHNICIAN NURSE FOR CONTINUITY OF CARE.
--- NOTE | 2018-05-07 19:30 | NUR ---
RECEIVED PT IN BED AWAKE. BREATHING EVENLY RR:30+. NO SOB. NO ACUTE DISTRESS. NOTED ANXIOUS WITH HIGH BP AND RR. TRACH IN PLACE VENT DEPENDENT. GT IN PLACE. GTF BETH WELL W/ HOB ELEVATED. NO IV LINE THE MID LINE WAS D/C'D FOR PT WAS SUPPOSED TO BE DISCHARGED. NEEDS ATTENDED . CONDOM CATH IN PLACE W/ CLEAR YELLOW URINE. SRX3. CALL LIGHT WITHIN REACH, WILL CONT TO MONITOR ,.
[2018-05-07 20:00] VITALS: BP 165/95
[2018-05-07] MEDS: CLONIDINE HCL 0.1 MG TABLET GT PRN (20:06)
--- NOTE | 2018-05-07 20:06 | NUR ---
CLONIDINE GIVEN FOR SBP:165. WILL CONT TO MONITOR ,
[2018-05-07] MEDS: LORAZEPAM INJ 2 MG/ML VIAL IVP PRN (20:20)
--- NOTE | 2018-05-07 20:20 | NUR ---
NEW IV LINE 24G WAS INSERTED ON L THUMB W/ GOOD BLOOD DRAW AND ATIVAN GIVEN FOR ANXIETY. FORTAZ IV STARTED TO INFUSE . WILL CONT TO MONITOR ,
--- NOTE | 2018-05-07 22:16 | NUR ---
BP:141/82, HR:84, RR:30. PLACED A CALL TO [facility] AND SPOKE TO JAC IF THEY ACCEPT THE PT W/ RR OF 30. PER JAC THE ACCEPTABLE RESP RATE IS 24 AND LOWER. CN MADE AWARE .
--- NOTE | 2018-05-07 22:27 | NUR ---
HEIDY [place]USH SYSTEMS SOFTWARE SPECIALIST MADE AWARE OF THE PT'S SITUATION AND RR DESPITE ALL THE THOSE INTERVENTION AND MEDICATIONS TO LOWER THE RR, AND THAT THE FACILITY IS NOT ACCEPTING PT WITH RR>24. SYSTEMS SOFTWARE SPECIALIST W/ A NEW ORDER TO OK TO KEEP THE PT OVERNIGHT. WILL CONT TO MONITOR ,
--- NOTE | 2018-05-07 23:13 | NUR ---
PATIENT RECEIVED ON AC @ 40%. PORTEX [address] AMBU BAG @ BEDSIDE. ALARMS ON AND AUDIBLE. SX DONE, SMALL THICK WHITE SECRETIONS NOTED. VENT PLUGGED INTO RED OUTLET. NO DISTRESS NOTED. WILL MONITOR T/O SHIFT. Addendum: 05/07/18 at 2314 by HARVINDER ARZATE RT Amended: Links added.
[2018-05-08] VITALS (7 sets, daily range): BP systolic 119–142; BP diastolic 46–67
[2018-05-08] MEDS: BLOOD SUGAR DIAGNOSTIC 1 EACH STRIP IN SCH ×4 (00:20→17:40)
[2018-05-08] MEDS: CEFTAZIDIME 1 G in IV D5W 50 ML IV SCH ×2 (05:47→12:55)
--- NOTE | 2018-05-08 06:32 | NUR ---
PT IN BED AWAKE AND RESPONSIVE. BREATHING EVENLY . NO SOB. TRACH IN PLACE. VENT DEPENDENT. NO ACUTE EVENT DURING THE NIGHT. NO S/S OR C/O PAIN OR DISCOMFORT. CONDOM CATH IN PLACE DRAINING CLEAR YELLOW URINE WITH SOME LEAKAGE. . PT WAS ASSISTED W/ REPOSITIONING. WOUND CARE WAS PROVIDED. NEEDS MET. BED LOW LOCKED. CALL LIGHT WITHIN REACH, WILL CONT TO MONITOR AND WILL ENDORSE TO AM SHIFT FOR AMANDA.
--- NOTE | 2018-05-08 07:30 | NUR ---
PREPRESS SUPERVISOR NOTES PT IN BED, AWAKE, ALERT, NO SIGN OF PAIN OR DISTRESS, NO FACIAL GRIMACING, RESPIRATIONS AT 31 BPM, GT FEEDING INFUSING WELL, CALL LIGHT WITHIN REACH, ON TRACH/VENT, KEPT COMFORTABLE.
[2018-05-08] MEDS: SUCRALFATE 1 G/10 ML UDC GT SCH (08:47)
[2018-05-08] MEDS: PROSOURCE / PROSTAT (PYXIS) 30 ML UDC GT SCH ×2 (08:47→16:38)
[2018-05-08] MEDS: DOCUSATE SODIUM LIQ 100 MG/10 ML UDC GT SCH ×2 (08:48→16:38)
[2018-05-08] MEDS: ASCORBIC ACID 500 MG TABLET GT SCH (08:48)
[2018-05-08] MEDS: MULTIVITAMINS,THERAGRAN 1 UDTAB TABLET GT SCH (08:48)
[2018-05-08] MEDS: FERROUS SULFATE UDC 300 MG/5 ML UDC GT SCH ×2 (08:48→16:38)
[2018-05-08] MEDS: Z GUARD REMEDY 2 OZ OINT TP SCH (08:50)
[2018-05-08] MEDS: HYDROGEL DRESSING 90 GM TUBE TP SCH (08:52)
--- NOTE | 2018-05-08 13:00 | NUR ---
AIR HAMMER STRIPPER NOTES PT IN BED, RESTING, NO SIGN OF DISTRESS, NO COMPLAINT OF PAIN, SEEN BY DR. LUO, GT INFUSING WELL, TOLERATING WELL, TURNED AND REPOSITIONED Q2 HOURS, KEPT COMFORTABLE.
[2018-05-08] MEDS: LORAZEPAM INJ 2 MG/ML VIAL IVP PRN (15:56)
[2018-05-08] MEDS: GLUCERNA 1.2 1,000 ML BOTTLE PEG PRN (18:07)
--- NOTE | 2018-05-08 18:38 | NUR ---
ADJUNCT ENGLISH INSTRUCTOR NOTES PT IN BED, RESTING, EASY TO AROUSE, NO FACIAL GRIMACING OR MOANING, RESPIRATIONS AT 28 BPM, ON VENT/TRACH, GT FEEDING INFUSING WELL, TOLERATING WELL, WOUND TREATMENTS DONE, DRESSING CHANGE DONE, SON DONNA VISITED, PLAN OF CARE DISCUSSED, VERBALIZED UNDERSTANDING, TURNED AND REPOSITIONED Q2 HOURS, PM CARE PROVIDED, PM MEDS GIVEN, ALL NEEDS ATTENDED.
--- NOTE | 2018-05-08 19:38 | NUR ---
HUB BANDER OPENING NOTE RECEIVED PT IN STABLE CONDITION WITH NO SIGNS OF SOB OR DISTRESS. PT A&O X3-4. NO FACIAL GRIMACING NOTED. PT. GTUBE INFUSING WELL. PT. CURRENTLY SINUS RHYTHM WITH PACs 88. REMAINS ON VENT, TOLERATING WELL. SAFETY PRECAUTIONS IN PLACE; UPPER BED RAILS UP X2, BED LOCKED AND IN LOWEST POSITION WITH CALL LIGHT WITHIN REACH. WILL CONT. TO MONITOR PT.
--- NOTE | 2018-05-08 20:00 | NUR ---
RN NOTES PATIENT HAS TUBE FEEDING GLUCERNA RUNNING @ 50ML/HR BUT IT WAS CLOGGED... STOPPED THE FEEDING AND UNCLOG IT
--- NOTE | 2018-05-08 22:00 | NUR ---
PATIENT RECEIVED TRACHED ON MECHANICAL VENTILATION. VENT PLUGGED INTO RED OUTLET. AMBU BAG @ BEDSIDE. SX DONE, MODERATE THICK WHITE SECRETIONS NOTED. ALARMS ON AND AUDIBLE. NO DISTRESS NOTED. WILL MONITOR T/O SHIFT. Addendum: 05/08/18 at 2201 by HARVINDER ARZATE RT Amended: Links added.
[2018-05-09] VITALS (8 sets, daily range): BP systolic 93–143; BP diastolic 48–72
[2018-05-09] MEDS: BLOOD SUGAR DIAGNOSTIC 1 EACH STRIP IN SCH ×4 (00:17→18:20)
--- NOTE | 2018-05-09 06:20 | NUR ---
CHIEF PROGRAM OFFICER NOTE PT REMAINS STABLE, A&0 X1-2. ALL VS STABLE NO SIGNS OF SOB/DISTRESS. GTUBE INTACT AND PATENT WITH FEEDING RUNNING. IV SITE CHANGED TO [facility]22. SAFETY MEASURES IN PLACE, BED LOCKED AND LOWEST POSITION, WITH UPPER BEDRAILS UP X2 WITH CALL LIGHT WITHIN REACH. WILL ENDORSE TO NEXT SHIFT.
--- NOTE | 2018-05-09 07:30 | NUR ---
PV DESIGN ENGINEER NOTES PT IN BED, AWAKE, ALERT TO SELF, ABLE TO MOUTH WORDS, NO FACIAL GRIMACING, ON TRACH/VENT, GT FEEDING INFUSING WELL, REPOSITIONED FOR COMFORT, KEPT WARM AND COMFORTABLE IN BED.
--- NOTE | 2018-05-09 08:14 | NUR ---
RT NOTE: VENT CHANGES MADE PER 'S ORDERS BUT PATIENT WAS NOT ABLE TO TOLERATE. WHEN CHANGED TO CPAP FROM AC, PATIENT'S RR INCREASED TO 40BPM, LOW TIDAL VOLUMES OF 200ML, AND PATIENT BEGAN TO USE ACCESSORY MUSCLES. PATIENT PLACED BACK TO PRIOR SETTING. NURSE(CYNDI) AWARE. WILL CONTINUE TO MONITOR.
[2018-05-09] MEDS: DOCUSATE SODIUM LIQ 100 MG/10 ML UDC GT SCH ×2 (08:34→16:46)
[2018-05-09] MEDS: SUCRALFATE 1 G/10 ML UDC GT SCH (08:34)
[2018-05-09] MEDS: ASCORBIC ACID 500 MG TABLET GT SCH (08:34)
[2018-05-09] MEDS: MULTIVITAMINS,THERAGRAN 1 UDTAB TABLET GT SCH (08:34)
[2018-05-09] MEDS: FERROUS SULFATE UDC 300 MG/5 ML UDC GT SCH ×2 (08:34→16:46)
[2018-05-09] MEDS: PROSOURCE / PROSTAT (PYXIS) 30 ML UDC GT SCH ×2 (08:34→16:46)
[2018-05-09] MEDS: Z GUARD REMEDY 2 OZ OINT TP SCH (08:35)
[2018-05-09] MEDS: HYDROGEL DRESSING 90 GM TUBE TP SCH (08:35)
--- NOTE | 2018-05-09 10:15 | NUR ---
RT NOTE: PATIENT'S TRACH CHANGED TO EMILILEY #[address] LUO'S ORDER. TOLERATED WELL. NO BLOOD OR REDNESS NOTED.
[2018-05-09 13:33] LABS: BASOPHILS % (AUTO) 0.1 % (0.0-2.0); EOSINOPHILS % (AUTO) 0.3 % (0.0-6.0); HEMATOCRIT 29 % (39-51); HEMOGLOBIN 8.8 g/dL (13.5-17.5); LYMPHOCYTES % (AUTO) 7.1 % (20.0-44.0); MEAN CORPUSCULAR HGB CONC 31 g/dl (31.0-36.0); MEAN CORPUSCULAR VOLUME 91 fL (80-96); MONOCYTES # (AUTO) 1.4 /CMM (0.1-1.30); MONOCYTES % (AUTO) 10.1 % (2.0-12.0); NEUTROPHILS # (AUTO) 11.5 /CMM (1.8-8.9); NEUTROPHILS % (AUTO) 82.4 % (43.0-81.0); PLATELET COUNT (AUTO) 220 /CMM (150-450); RED BLOOD CELL COUNT(AUTO) 3.14 MIL/uL (4.5-6.0); WHITE BLOOD COUNT (AUTO) 13.9 K/uL (4.3-11.0)
[2018-05-09] MEDS: methylPREDNISolone SOD SUCC 125 MG/2ML VIAL IV SCH (16:46)
[2018-05-09] MEDS: GLUCERNA 1.2 1,000 ML BOTTLE PEG PRN (16:51)
[2018-05-09] MEDS: ACETYLCYSTEINE 10% SOLN 400 MG/4 ML VIAL NEB SCH ×2 (17:33→23:49)
[2018-05-09] MEDS: IPRATROPIUM NEB FS 0.5 MG/2.5 ML AMPUL.NEB NEB SCH ×3 (17:34→23:49)
[2018-05-09] MEDS: ALBUTEROL FS 2.5 MG/3 ML VIAL.NEB NEB SCH ×3 (17:34→23:49)
--- NOTE | 2018-05-09 18:48 | NUR ---
AT RISK SPECIALIST NOTES PT IN BED, RESTING, ALERT TO SELF, ABLE TO MOUTH WORDS, NO SIGN OF PAIN OR DISTRESS, SEEN BY INFECTIOUS DISEASE MD, ORDERS MADE, SKIN TREATMENTS AND DRESSING CHANGE DONE, TURNED AND REPOSITIONED Q2 HOURS, PM MEDS GIVEN, ALL NEEDS ATTENDED.
--- NOTE | 2018-05-09 19:35 | NUR ---
VISUAL SUPERVISOR NOTE: PT IN STABLE CONDITION, A&O X1-2, ALL VS STABLE WITH NEW CANNULA SHERRI #6. PT CURRENTLY SR 99 WITH PACs. SAFETY MEASURES IN PLACE, BED LOCKED/LOWEST POSITION, UPPER BED RAILS UP X2, AND CALL LIGHT WITHIN REACH. WILL CONT TO MONITOR PT.
[2018-05-10] VITALS: BP 104/50
[2018-05-10] MEDS: INSULIN REGULAR, HUMAN 100 UNIT/ML 3 ML VIAL SQ PRN ×4 (00:10→19:01)
[2018-05-10] MEDS: BLOOD SUGAR DIAGNOSTIC 1 EACH STRIP IN SCH ×4 (00:12→18:28)
[2018-05-10] MEDS: ALBUTEROL FS 2.5 MG/3 ML VIAL.NEB NEB SCH ×6 (03:32→23:10)
[2018-05-10] MEDS: IPRATROPIUM NEB FS 0.5 MG/2.5 ML AMPUL.NEB NEB SCH ×6 (03:32→23:10)
[2018-05-10 04:00] VITALS: BP 119/51
--- NOTE | 2018-05-10 06:23 | NUR ---
USER SUPPORT SPECIALIST NOTE PT IN STABLE CONDITION A&O X1-2, ALL VS STABLE NO SIGNS OF SOB OR DISTRESS. GTUBE PATENT AND PT TOLERATING FEEDING WELL. BED LOCKED AND IN LOWEST POSITION WITH UPPER BED RAILS UP X2, AND CALL LIGHT WITHIN REACH. WILL ENDORSE TO NEXT SHIFT.
--- NOTE | 2018-05-10 07:21 | NUR ---
MS/RN OPENING NOTE THE PATIENT IS RECEIVED IN BED. ALERT AND ORIENTED X1, ABLE TO MOUTH WORDS. PATIENT TRACH AND VENT. NOTED TO HAVE SHILEY #6XLT. TOLERATES VENT SETTING WELL. PATIENT IN NO APPARENT DISTRESS. GT FEEDING GLUCERNA INFUSING AT 50ML/HR.LAC G 22 PATENT AND SALINE LOCKED. SIDE RAILS UP X3. CALL LIGHT WITHIN REACH. WILL CONTINUE TO MONITOR.
[2018-05-10] MEDS: ACETYLCYSTEINE 10% SOLN 400 MG/4 ML VIAL NEB SCH ×3 (07:45→23:10)
--- NOTE | 2018-05-10 07:45 | NUR ---
RT Pt received trach'd and on [facility] vent w charted settings. Alarms are on and audible w [email or web address] @ hob. Trach is patent and secure. Clinical Nurse Specialist done. Hhn tx given and pt sx'd w no adverse reactions. No resp distress noted @ this time. Will continue to monitor. Addendum: 05/10/18 at 1021 by RUT DAIGLE RT Amended: Links added.
[2018-05-10] MEDS: ASCORBIC ACID 500 MG TABLET GT SCH (08:19)
[2018-05-10] MEDS: FERROUS SULFATE UDC 300 MG/5 ML UDC GT SCH ×2 (08:19→16:59)
[2018-05-10] MEDS: MULTIVITAMINS,THERAGRAN 1 UDTAB TABLET GT SCH (08:19)
[2018-05-10] MEDS: SUCRALFATE 1 G/10 ML UDC GT SCH (08:19)
[2018-05-10] MEDS: DOCUSATE SODIUM LIQ 100 MG/10 ML UDC GT SCH ×2 (08:19→16:59)
[2018-05-10] MEDS: methylPREDNISolone SOD SUCC 125 MG/2ML VIAL IV SCH (08:19)
[2018-05-10 09:31] VITALS: BP 118/62
[2018-05-10] MEDS: PROSOURCE / PROSTAT (PYXIS) 30 ML UDC GT SCH ×2 (10:03→16:59)
[2018-05-10] MEDS: HYDROGEL DRESSING 90 GM TUBE TP SCH (10:04)
[2018-05-10] MEDS: Z GUARD REMEDY 2 OZ OINT TP SCH (10:04)
[2018-05-10 12:00] VITALS: BP 120/62
--- NOTE | 2018-05-10 12:36 | NUR ---
MS/RN NOTE BLOOD SUGAR 144 AND 2 UNITS OF REGULAR INSULIN IS GIVEN PER ORDER. NO ADVERSE REACTIONS NOTED.
[2018-05-10 16:00] VITALS: BP 113/57
--- NOTE | 2018-05-10 18:51 | NUR ---
MS/RN CLOSING NOTE THE PATIENT ALERT AND ORIENTED X1 AND ABLE TO MOUTH WORDS. IN NO APPARENT DISTRESS. PATIENT TRACH AND VENT. NOTED TO HAVE SHILEY #6XLT. TOLERATES VENT SETTING WELL. PATIENT IN NO APPARENT DISTRESS. GT FEEDING GLUCERNA INFUSING AT 50ML/HR.LAC G 22 PATENT AND SALINE LOCKED. GOOD AND GENTLE SKIN CARE RENDERED. KEPT CLEAN, DRY AND COMFORTABLE. TURNED AND REPOSITIONED. BED LOW AND LOCKED. SIDE RAILS UP X3. CALL LIGHT WITHIN REACH. WILL ENDORSE TO TELEPHONY ENGINEER.
[2018-05-10] MEDS: HYDROCODONE/APAP 5/325MG 1 EACH TABLET GT PRN (19:03)
[2018-05-10] MEDS: GLUCERNA 1.2 1,000 ML BOTTLE PEG PRN (19:07)
--- NOTE | 2018-05-10 19:30 | NUR ---
CARPET OR RUG LAYER HELPER NOTE: PATIENT RESTING IN BED, NO ACUTE DISTRESS NOTED. BREATHING EVEN AND UNLABORED, NO SOB NOTED. VENT SETTINGS IN PLACE. PATIENT RESPIRATION STILL NOTED AT 30 BREATH PER MINUTE. DISCHARGE STILL ON HOLD, UNTIL RESPIRATIONS LESS THAN 24, PER [facility]. IV TO LAC IN PLACE. NO S/S HYPER/HYPOGLYCEMIA NOTED. TELE READING SR WITH PAC 80. G-TUBE IN PLACE, INFUSING GLUCERNA AT 50 ML/HR. BED LOCKED AND IN LOWEST POSITION, CALL LIGHT IN REACH. WILL CONTINUE TO MONITOR.
[2018-05-10 20:00] VITALS: BP 144/60
--- NOTE | 2018-05-10 20:15 | NUR ---
RT PT RECEIVED TRACHED ON [facility] VENT ON CHARTED SETTINGS. NO SIGNS OF RESP DISTRESS AT THIS MOMENT. AIRWAY PATENT AND SECURED. PT SUCTIONED. PT RECEIVED ORDERED HHN TX. ALARMS AUDIBLE. AMBUBAG AT BEDSIDE. VENT CONNECTED TO RED OUTLET. WILL CONT. TO MONITOR. Addendum: 05/10/18 at 2017 by PITER FRANCO RT Amended: Links added.
[2018-05-11] VITALS (7 sets, daily range): BP systolic 109–171; BP diastolic 57–81
[2018-05-11] MEDS: BLOOD SUGAR DIAGNOSTIC 1 EACH STRIP IN SCH ×4 (00:15→17:39)
[2018-05-11] MEDS: INSULIN REGULAR, HUMAN 100 UNIT/ML 3 ML VIAL SQ PRN ×3 (00:16→17:40)
--- NOTE | 2018-05-11 00:30 | NUR ---
COMPANY LABORER NOTE: PATIENT BLOOD SUGAR LEVEL 132MG/DL, TO RECEIVE 2 UNITS PER SLIDING SCALE, PATIENT ON G-TUBE FEEDING. WILL CONTINUE TO MONITOR.
[2018-05-11] MEDS: IPRATROPIUM NEB FS 0.5 MG/2.5 ML AMPUL.NEB NEB SCH ×6 (03:11→22:48)
[2018-05-11] MEDS: ALBUTEROL FS 2.5 MG/3 ML VIAL.NEB NEB SCH ×6 (03:11→22:48)
--- NOTE | 2018-05-11 06:34 | NUR ---
FAC ENGINEER NOTE: PATIENT RESTING IN BED, NO ACUTE DISTRESS NOTED. BREATHING EVEN AND UNLABORED, NO SOB NOTED. VENT SETTINGS IN PLACE. IV TO LAC IN PLACE. PATIENT BLOOD SUGAR LEVEL 120MG/DL, NO INSULIN NEEDED PER SLIDING SCALE, NO S/S HYPER/HYPOGLYCEMIA NOTED. TELE READING SR WITH PAC 80. G-TUBE IN PLACE, INFUSING GLUCERNA AT 50 ML/HR. BED LOCKED AND IN LOWEST POSITION, CALL LIGHT IN REACH. WILL ENDORSE TO DAY NURSE TO CONTINUE WITH PLAN OF CARE.
--- NOTE | 2018-05-11 07:10 | NUR ---
RN NOTES PATIENT A/OX1, RESP OF 30. NO SOB NOTED, TOLERATING MECHANICAL VENT SETTINGS AT THIS TIME. KEPT COMFORTABLE, HOB ELEVATED, NEEDS ATTENDED, CALL LIGHT WITHIN REACH, WILL CONTINUE TO MONITOR.
[2018-05-11] MEDS: ACETYLCYSTEINE 10% SOLN 400 MG/4 ML VIAL NEB SCH ×3 (07:24→22:48)
[2018-05-11] MEDS: MULTIVITAMINS,THERAGRAN 1 UDTAB TABLET GT SCH (08:41)
[2018-05-11] MEDS: ASCORBIC ACID 500 MG TABLET GT SCH (08:41)
[2018-05-11] MEDS: methylPREDNISolone SOD SUCC 125 MG/2ML VIAL IV SCH (08:41)
[2018-05-11] MEDS: DOCUSATE SODIUM LIQ 100 MG/10 ML UDC GT SCH ×2 (08:41→17:04)
[2018-05-11] MEDS: SUCRALFATE 1 G/10 ML UDC GT SCH (08:42)
[2018-05-11] MEDS: PROSOURCE / PROSTAT (PYXIS) 30 ML UDC GT SCH ×2 (08:42→17:04)
[2018-05-11] MEDS: FERROUS SULFATE UDC 300 MG/5 ML UDC GT SCH ×2 (08:42→17:04)
[2018-05-11] MEDS: Z GUARD REMEDY 2 OZ OINT TP SCH (08:43)
[2018-05-11] MEDS: HYDROGEL DRESSING 90 GM TUBE TP SCH (08:44)
[2018-05-11 08:54] LABS: BASOPHILS # (AUTO) 0.1 /CMM (0.0-0.2); BASOPHILS % (AUTO) 0.4 % (0.0-2.0); EOSINOPHILS % (AUTO) 0.1 % (0.0-6.0); HEMATOCRIT 23 % (39-51); HEMOGLOBIN 7.3 g/dL (13.5-17.5); LYMPHOCYTES % (AUTO) 5.2 % (20.0-44.0); MEAN CORPUSCULAR HGB CONC 31 g/dl (31.0-36.0); MEAN CORPUSCULAR VOLUME 91 fL (80-96); MONOCYTES # (AUTO) 1.4 /CMM (0.1-1.30); MONOCYTES % (AUTO) 7.2 % (2.0-12.0); NEUTROPHILS # (AUTO) 17.1 /CMM (1.8-8.9); NEUTROPHILS % (AUTO) 87.1 % (43.0-81.0); PLATELET COUNT (AUTO) 291 /CMM (150-450); RED BLOOD CELL COUNT(AUTO) 2.57 MIL/uL (4.5-6.0); WHITE BLOOD COUNT (AUTO) 19.6 K/uL (4.3-11.0)
--- NOTE | 2018-05-11 10:20 | NUR ---
CASE ADVOCATE OPENING NOTES RECEIVED PATIENT IN STABLE CONDITION. IN NO APPARENT DISTRESS. BEDSIDE RAILS ARE UPX2. BED IS LOCKED AND LOWERED. CALL LIGHT IS WITHIN REACH. IV LINE IS INTACT AND PATENT. G TUBE FEEDING IS IN PLACE AND INFUSING. WILL CONTINUE TO MONITOR PATIENT.
[2018-05-11] MEDS ORDERED: MORPHINE SULFATE INJ 4 MG/ML DISP.SYRIN IV ONE (16:30)
--- NOTE | 2018-05-11 17:33 | NUR ---
RT PT RECEIVED TRACHED ON [facility] VENT ON CHARTED SETTINGS. NO SIGNS OF RESP DISTRESS AT THIS MOMENT. AIRWAY PATENT AND SECURED. PT SUCTIONED. PT RECEIVED ORDERED HHN TX. ALARMS AUDIBLE. AMBUBAG AT BEDSIDE. VENT CONNECTED TO RED OUTLET. WILL CONT. TO MONITOR.
--- NOTE | 2018-05-11 18:12 | NUR ---
STARTER CUP POWDER MIXER CLOSING NOTES PATIENT IS IN STABLE CONDITION. IN NO APPARENT DISTRESS. BEDSIDE RAILS ARE UPX2. BED IS LOCKED AND LOWERED. CALL LIGHT IS WITHIN REACH.IV LINE IS INTACT AND PATENT. WOUND TREATMENT PERFORMED PRESCRIBED. AT 1700 [facility] ARRIVED TO TAKE PATIENT TO [facility]. DUE TO PATIENTS INCREASED RESPIRATIONS OF 32 THE [facility] DID NOT TAKE PATIENT. [facility] REFUSED TO ACCEPT PATIENT. DOCTOR JOSIE TAMEZ MADE AWARE. WILL ENDORSE CARE TO TIME CYCLE OPERATOR NURSE FOR AMANDA.
--- NOTE | 2018-05-11 19:31 | NUR ---
PT RCVD TRACH SHILEY 6 XLT ON VENT WITH NOTED SETTINGS. PT IS ALERT AND AWAKE. TRACH INTACT AND SECURED. VENT PLUGGED INTO RED OUTLET, VENT ALARMS ON AND AUDIBLE. BREATHING TX GIVEN ,NO ADVERSE REACTION NOTED. SUCTIONED PT WITH MODERATE AMOUNT OF YELLOW THICK SECRETIONS. AMBU BAG AT BEDSIDE. WILL CONTINUE TO MONITOR THE PT.
[2018-05-11] MEDS: GLUCERNA 1.2 1,000 ML BOTTLE PEG PRN (20:02)
[2018-05-12] VITALS: BP 116/59
[2018-05-12] MEDS: BLOOD SUGAR DIAGNOSTIC 1 EACH STRIP IN SCH ×3 (00:37→11:48)
[2018-05-12] MEDS: ALBUTEROL FS 2.5 MG/3 ML VIAL.NEB NEB SCH ×3 (02:57→10:59)
[2018-05-12] MEDS: IPRATROPIUM NEB FS 0.5 MG/2.5 ML AMPUL.NEB NEB SCH ×3 (02:57→10:59)
[2018-05-12 04:00] VITALS: BP 123/57
--- NOTE | 2018-05-12 06:13 | NUR ---
CHOKE SETTER NOTES AWAKE & ALERT. NON VERBAL. MOUTH WORDS. WITH SAME VENT SETTINGS. NOT IN ANY DISTRESS. NO SOB NOTED. NO S/SX OF ANY PAIN OR DISCOMFORT AT THIS TIME. WITH GTF INFUSING WELL. AM CARE DONE. MONITORED ACCORDINGLY. CALL LIGHT WITHIN REACH. BED IN LOWEST POSITION. SR UP X 3 WITH BED ALARM ON FOR SAFETY. WILL ENDORSE TO NEXT SHIFT.
[2018-05-12 06:30] LABS: BASOPHILS % (AUTO) 0.1 % (0.0-2.0); HEMATOCRIT 25 % (39-51); HEMOGLOBIN 7.7 g/dL (13.5-17.5); LYMPHOCYTES # (AUTO) 1.2 /CMM (0.8-4.8); LYMPHOCYTES % (AUTO) 6.4 % (20.0-44.0); MEAN CORPUSCULAR HGB CONC 31 g/dl (31.0-36.0); MEAN CORPUSCULAR VOLUME 90 fL (80-96); MONOCYTES # (AUTO) 1.5 /CMM (0.1-1.30); MONOCYTES % (AUTO) 7.7 % (2.0-12.0); NEUTROPHILS # (AUTO) 16.2 /CMM (1.8-8.9); NEUTROPHILS % (AUTO) 85.8 % (43.0-81.0); PLATELET COUNT (AUTO) 279 /CMM (150-450); RED BLOOD CELL COUNT(AUTO) 2.78 MIL/uL (4.5-6.0); WHITE BLOOD COUNT (AUTO) 18.9 K/uL (4.3-11.0)
[2018-05-12] MEDS: ACETYLCYSTEINE 10% SOLN 400 MG/4 ML VIAL NEB SCH (07:08)
--- NOTE | 2018-05-12 07:36 | NUR ---
FUEL RETROFITTING TECHNICIAN OPENING NOTES RECEIVED PATIENT IN STABLE CONDITION. IN NO APPARENT DISTRESS. BEDSIDE RAILS ARE UPX2. BED IS LOCKED AND LOWERED. G TUBE FEEDING INFUSING AT 50MLS/HR. IV LINE IS INTACT AND PATENT. PATIENT ON VENTILATOR. CALL LIGHT IS WITHIN REACH. WILL CONTINUE TO MONITOR PATIENT
--- NOTE | 2018-05-12 07:42 | NUR ---
RT PT RECEIVED TRACHED ON [facility] VENT ON CHARTED SETTINGS. NO SIGNS OF RESP DISTRESS AT THIS MOMENT. AIRWAY PATENT AND SECURED. PT SUCTIONED AND GIVEN ORDERED HHN TXS. ALARMS SET AND AUDIBLE. AMBUBAG AND BACK UP TRACH AT BEDSIDE. VENT CONNECTED TO RED OUTLET. WILL CONT TO MONITOR. Addendum: 05/12/18 at 0744 by PITER FRANCO RT Amended: Links added.
[2018-05-12 08:00] VITALS: BP 145/92
[2018-05-12] MEDS: SUCRALFATE 1 G/10 ML UDC GT SCH (08:33)
[2018-05-12] MEDS: ASCORBIC ACID 500 MG TABLET GT SCH (08:33)
[2018-05-12] MEDS: FERROUS SULFATE UDC 300 MG/5 ML UDC GT SCH (08:33)
[2018-05-12] MEDS: MULTIVITAMINS,THERAGRAN 1 UDTAB TABLET GT SCH (08:34)
[2018-05-12] MEDS: HYDROGEL DRESSING 90 GM TUBE TP SCH (08:34)
[2018-05-12] MEDS: PROSOURCE / PROSTAT (PYXIS) 30 ML UDC GT SCH (08:34)
[2018-05-12] MEDS: Z GUARD REMEDY 2 OZ OINT TP SCH (08:34)
[2018-05-12] MEDS: DOCUSATE SODIUM LIQ 100 MG/10 ML UDC GT SCH (08:34)
[2018-05-12] MEDS: methylPREDNISolone SOD SUCC 125 MG/2ML VIAL IV SCH (08:49)
[2018-05-12] MEDS: LORAZEPAM INJ 2 MG/ML VIAL IVP PRN (11:12)
[2018-05-12] MEDS: HYDROCODONE/APAP 5/325MG 1 EACH TABLET GT PRN (11:16)
[2018-05-12] MEDS: INSULIN REGULAR, HUMAN 100 UNIT/ML 3 ML VIAL SQ PRN (11:49)
--- NOTE | 2018-05-12 12:16 | NUR ---
SECURITY SME CLOSING NOTES DISCHARGED PATIENT IN STABLE CONDITION. IN NO APPARENT DISTRESS. [facility]ARE WAS SIGNED AND SENT WITH PATIENT TO [facility]. IV LINE WAS REMOVED. ID BAND WAS REMOVED. BELONGINGS WERE CHECKED AND GIVEN TO THE PATIENT. ALL NEEDS WERE MET. PATIENT ESCORTED OUT OF THE FACILITY VIA GURNEY BY EMERGENCY MEDICAL TEAM AND RESPIRATORY THERAPIST. [facility]
== END 2018-05-12 12:25 | DRG 981 ==
LOC: ER 12:37 → TELE 15:12
PROVIDERS: ADMIT Nurse Practitioner Acute Care; ATTEND Nurse Practitioner Acute Care
PROC: 5A1955Z Respiratory Ventilation, Greater than 96 Consecutive Hours (ICD-10-PCS; principal; 2018-05-01)
PROC: 0KBP0ZZ Excision of Left Hip Muscle, Open Approach (ICD-10-PCS; 2018-05-02)
PROC: 0KBN0ZZ Excision of Right Hip Muscle, Open Approach (ICD-10-PCS; 2018-05-02)
PROC: 30233N1 Transfusion of Nonautologous Red Blood Cells into Peripheral Vein, Percutaneous Approach (ICD-10-PCS; 2018-05-04)
PROC: 05H633Z Insertion of Infusion Device into Left Subclavian Vein, Percutaneous Approach (ICD-10-PCS; 2018-05-04)
PROC: 0B21XFZ Change Tracheostomy Device in Trachea, External Approach (ICD-10-PCS; 2018-05-09)
DX: N39.0 Urinary tract infection, site not specified (principal); N17.0 Acute kidney failure with tubular necrosis; J15.9 Unspecified bacterial pneumonia; I21.A1 Myocardial infarction type 2; L89.154 Pressure ulcer of sacral region, stage 4; E43 Unspecified severe protein-calorie malnutrition; E87.1 Hypo-osmolality and hyponatremia; D68.59 Other primary thrombophilia; J96.11 Chronic respiratory failure with hypoxia; G93.40 Encephalopathy, unspecified; I50.32 Chronic diastolic (congestive) heart failure; Z99.11 Dependence on respirator [ventilator] status; J90 Pleural effusion, not elsewhere classified; J44.0 Chronic obstructive pulmonary disease with (acute) lower respiratory infection; E87.2 Acidosis; Z93.1 Gastrostomy status; Z74.01 Bed confinement status; Z93.0 Tracheostomy status; R13.10 Dysphagia, unspecified; I11.0 Hypertensive heart disease with heart failure; D50.9 Iron deficiency anemia, unspecified; D63.8 Anemia in other chronic diseases classified elsewhere; E83.42 Hypomagnesemia; E87.6 Hypokalemia; E87.5 Hyperkalemia; E78.5 Hyperlipidemia, unspecified; E83.39 Other disorders of phosphorus metabolism; Z87.440 Personal history of urinary (tract) infections; K21.9 Gastro-esophageal reflux disease without esophagitis; S30.820A Blister (nonthermal) of lower back and pelvis, initial encounter; X58.XXXA Exposure to other specified factors, initial encounter; Y93.9 Activity, unspecified; Y92.129 Unspecified place in nursing home as the place of occurrence of the external cause; Z68.23 Body mass index [BMI] 23.0-23.9, adult; K29.70 Gastritis, unspecified, without bleeding; K44.9 Diaphragmatic hernia without obstruction or gangrene; S41.112A Laceration without foreign body of left upper arm, initial encounter; S41.111A Laceration without foreign body of right upper arm, initial encounter; B96.5 Pseudomonas (aeruginosa) (mallei) (pseudomallei) as the cause of diseases classified elsewhere; J84.10 Pulmonary fibrosis, unspecified; I25.10 Atherosclerotic heart disease of native coronary artery without angina pectoris; E86.1 Hypovolemia; C32.9 Malignant neoplasm of larynx, unspecified
CPT/HCPCS: 31720; 36415; 36569; 36600; 71045-TC; 73020; 80048-TC; 80053-TC; 80061-TC; 80076-TC; 81000-TC; 82272-TC; 82803-TC; 82962-TC; 83540-TC; 83605-TC; 83735-TC; 83935-TC; 84100-TC; 84300-TC; 84484-TC; 85025-TC; 85730-TC; 86850-TC; 86921-TC; 87040-TC; 87070-TC; 87081-TC; 87086-TC; 87186-TC; 92611-TC; 93307-TC; 94002-TC; 94003-TC; 94640-TC; 94760-TC; 94762-TC; 99082-TC; A4349; A4606; A4623; A6248; A6253; A6402; A6403; A6407; A7526; G0378; J0713; J1815; J2060; J2270; J2543; J2920; J2930; J3475; J3480; J3490; J7030; J7050; J7060; P9016-BL; Z7610

== ENCOUNTER 2018-05-21 13:44 | Inpatient (IN) | payer MEDICARE, MEDICAID ==
[~2018-05-21] VITALS: Ht 172.7 cm; Wt 66.7 kg
[2018-05-21] VITALS (11 sets, daily range): BP systolic 76–119; BP diastolic 43–73
[~2018-05-21 13:44] MED LIST changes: +ACET650S26 GT; -ALBUT2 NEB; +AMIN30LI27 GT; +ASCO-340 GT; -BACI15OI TP; +BISA10SU8 RC; +BLOO-668 IN; +CEFT1VIA7 IM; +CHLO473M5 MM; +DOCU50LI GT; +FERR300L GT; +INSU100V3 SQ; +MAGN400O6 GT; +MULT-447 GT; +NA P133E RC; +NUT.237L30 GT; -Nutritional Supplement/Fiber GT; +OMEP20CA10 GT; -ONDA4TAB5 PO; -PANT40TA2 PO; -POLY15DR57 EACHEYE; -PRED20TA GT; +SUCR1ORA GT; +TRAM50TA2 GT; -UREA57CR TP; -ZINC30OI4 TP; -[UNRECOGNIZED DRUG - CODE] TP
--- NOTE | 2018-05-21 14:15 | NUR ---
PT. 87 Y OLD MALE REC, IN ER TRACH'D SHERRI XLT # 6 ON VENT WITH NOTED SETTINGS, ALARMS ARE SET AND FUNCTIONAL. B/S BILATERALLY RALES NO SECRETION AFTER SUX'D. EQUAL CHEST RISE NOTED. INCREASED FIO2 TO 45 % DUE TO DESATURATION. VENT PLUGGED INTO RED OUTLET, AMBU BAG AT THE BEDSIDE. ( NO REPORT OR SETTINGS PER PARAMEDICS, SETTINGS FROM PT. FILE AND CONFIRMED WITH ER RN LABOR AND DELIVERY & MD ) CONTINUE TO MONITOR. Addendum: 05/21/18 at 1433 by YELENA CHARLES RT Amended: Links added.
[2018-05-21] MEDS ORDERED: IV NS 0.9% 500 ML BAG IV ONE (15:00)
--- NOTE | 2018-05-21 15:38 | NUR ---
PT BR[facility]HT IN FROM [facility] FOR LOW SATURATION PT HAS # 6 SHERRI TRACH ON VENT WITH PEG PIV ESTABLISHED IN RIGHT HAND LABS DRAWN INCLUDING BLOOD CULTURES PT HAS ADALI WITH LITTLE OUT PUT WILL CONTINUE TO MONITOR
[2018-05-21 15:45] LABS: EOSINOPHILS % (AUTO) 0.1 % (0.0-6.0); HEMATOCRIT 22 % (39-51); LYMPHOCYTES # (AUTO) 0.2 /CMM (0.8-4.8); LYMPHOCYTES % (AUTO) 0.7 % (20.0-44.0); MEAN CORPUSCULAR HGB CONC 31 g/dl (31.0-36.0); MEAN CORPUSCULAR VOLUME 87 fL (80-96); MONOCYTES # (AUTO) 0.9 /CMM (0.1-1.30); MONOCYTES % (AUTO) 3.1 % (2.0-12.0); NEUTROPHILS # (AUTO) 28.9 /CMM (1.8-8.9); NEUTROPHILS % (AUTO) 96.1 % (43.0-81.0); PLATELET COUNT (AUTO) 309 /CMM (150-450)
[2018-05-21 16:00] LABS: HEMOGLOBIN 6.6 g/dL (13.5-17.5)
[2018-05-21 16:09] LABS: ALANINE AMINOTRANSFERASE 28 U/L (12-78); ALKALINE PHOSPHATASE 227 U/L (46-116); ASPARTATE AMINOTRANSFERASE 83 U/L (15-37); B-TYPE NATRIURETIC PEPTIDE 5385 PG/ML (0-125); BILIRUBIN,DIRECT 0.5 mg/dL (0.0-0.2); CALCIUM, SERUM 8.5 mg/dL (8.5-10.1); CARBON DIOXIDE 28 mmol/L (21-32); CHLORIDE 95 mmol/L (98-107); GLUCOSE 63 mg/dL (74-106); SODIUM SERUM 131 mmol/L (136-145); UREA NITROGEN, BLOOD 65 mg/dL (7-18)
[2018-05-21 16:15] LABS: ALBUMIN 1.1 g/dL (3.4-5.0); POTASSIUM 6.9 mmol/L (3.5-5.1)
[2018-05-21] MEDS ORDERED: MAGNESIUM HYDROXIDE 30 ML UDC PO PRN (16:30)
[2018-05-21] MEDS ORDERED: VANCOMYCIN 1 GM in IV D5W 250 ML IV ONE (16:30)
[2018-05-21] MEDS ORDERED: ONDANSETRON HCL/PF 4 MG/2 ML VIAL IVP PRN (16:30)
[2018-05-21] MEDS ORDERED: IV NS 0.9% 1,000 ML IV ONE ×3 (16:30)
[2018-05-21] MEDS ORDERED: MEROPENEM 1,000 MG in IV NS 0.9% 100 ML IV ONE (16:30)
[2018-05-21] MEDS ORDERED: ZOLPIDEM TARTRATE 5 MG TABLET PO PRN (16:30)
[2018-05-21] MEDS ORDERED: IV NS 0.9% 500 ML IV ONE (16:30)
[2018-05-21] MEDS ORDERED: Z GUARD REMEDY 2 OZ OINT TP PRN (16:30)
[2018-05-21] MEDS ORDERED: MAG HYDROX/AL HYDROX/SIMETH 30 ML UDC PO PRN (16:30)
[2018-05-21 16:37] LABS: BAND % (MANUAL) 12 % (0.0-5.0); LYMPHOCYTES % (MANUAL) 1 % (16-48); NEUTROPHILS % (MANUAL) 87 (42-76)
--- NOTE | 2018-05-21 16:42 | NUR ---
VITAL SIGNS UP DATED MD AWARE ALL 1 LITER SALINE INFUSION COMPLETE SECOND LITER INFUSING ALONG WITH MERRIUM AND VANCO.
[2018-05-21] MEDS: NOREPINEPHRINE 8 MG in IV D5W 500 ML IV PRN ×2 (18:09→22:43)
--- NOTE | 2018-05-21 18:26 | NUR ---
PT STARTED ON LEVOPHED 4 MCG/MIN BLOOD PRESSURE IMPROVED PT WAITING FOR CENTRAL LINE PLACEMENT BEFORE BEING ADMITTED. MD TAMEZ CONTACTED
--- NOTE | 2018-05-21 18:34 | NUR ---
pt is assigned to [facility] rm#: [id number], dx: septic shock, and accepting: wiliam barajas np
[2018-05-21] MEDS: IPRATROPIUM NEB FS 0.5 MG/2.5 ML AMPUL.NEB NEB SCH (19:30)
[2018-05-21] MEDS: ALBUTEROL FS 2.5 MG/0.5 ML VIAL.NEB NEB SCH ×2 (19:30→23:09)
--- NOTE | 2018-05-21 20:22 | NUR ---
report given to radha khanna
--- NOTE | 2018-05-21 20:45 | NUR ---
CORRESPONDENCE CLERK NOTES RECEIVED PATIENT FROM ER WUTH TRACHEOSTOMY TO THE VENTILATOR ON AC MODE,SLIGHTLY LETHARGIC BUT EASILY AROUSABLE.ON LEVOPHED DRIP FOR BP SUPPORT (RECEIVED AT 4 MCG/MIN). G TUBE INTACT AND PATENT,NO RESIDUALS NOTED ,NO S/S OF BLEEDING FROM G TUBE ASPIRATE.NOTED MULTIPLE ECHYMOSIS,ERYTHEMA ALL OVER BOTH UPPER EXTREMITES WITH SOME SKIN TEAR ON LEFT ARM NOTED.ALSO NOTED UNSTAGEABLE SACRAL PRESSURE INJURY. 2100 ATTEMPTED BRO CATHETER INSERTION (TRIED BY 3 RNS) MEETING MUCH RESISTANCE ,TIP OF BRO CATHETER DOES NOT EVEN ADVANCE FROM THE TIP OF THE PENIS. ALSO PATIENT [place] ORDER FOR PRBC TRANSFUSION BUT PATIEN HAS NO ACCESS NOW,AWAITING PICC LINE INSERTION.
[2018-05-21] MEDS: PANTOPRAZOLE 40 MG VIAL IV SCH (22:33)
[2018-05-21 23:28] LABS: ABG BASE EXCESS 3.9 mmol/L; ABG OXYGEN SATURATION 97.2 % (92.0-98.5); ABG PCO2 38.2 mmHg (35.0-45.0); ABG PH 7.479 (7.350-7.450); ABG PO2 96.3 mmHg (75.0-100.0); AaDO2 181.1 mmHg; COHb 1.1 % (0.5-1.5); MetHb 0.9 % (0.0-1.5); O2Hb 95.3 % (94.0-97.0); SITE, ABG Left Brachial
[2018-05-21] MEDS ORDERED: MEROPENEM 1 G VIAL IV ONE (23:39)
[2018-05-21] MEDS: MEROPENEM 1 G in IV NS 0.9% 100 ML IV SCH (23:47)
[2018-05-22] VITALS (95 sets, daily range): BP systolic 50–133; BP diastolic 44–78
--- NOTE | 2018-05-22 00:30 | NUR ---
RETAIL LOSS PREVENTION OFFICER NOTES SPOKE TO ABOUT THE POTASSIUM OF 6.9 SINCE 05/21/18 @1535 WHEN PATIENT IS ADMITTED IN ER ,NOTHING WAS GIVEN OR DONE TO TREAT POTASSIUM(EMAR REVIEWED AND I ALSO ASK ROSE LEE WHO HAD TH EPATIENT IN ER). ORDERED TO GIVE 45 GRAMS OF KAYEXALATE NOW AND REPEAT POTASSIUM LEVEL AFTER.
--- NOTE | 2018-05-22 00:35 | NUR ---
HOT PRESS OPERATOR NOTES SUCCESFULLY INSERTED PICC L;INE BY PICC RN SITA VIA RIGHT UPPER ARM.LEVOPHED DRIP INFUSE VIA PICC LINE FROM NOW.WILL GIVE PRBC TRANSFUSION WELL.
[2018-05-22] MEDS ORDERED: SODIUM POLYSTYRENE SULFONATE 15 G/60 ML BOTTLE GT ONE (01:00)
--- NOTE | 2018-05-22 02:15 | NUR ---
HAND SALTER NOTES STARTED PRBC TRANSFUSION VIA PICC LINE. BP NOW IN THE 100'S SYSTOLIC,STILL ON LEVOPHED DRIP @ 7 MCG/MIN.WILL TITRATE TOLERATED. 0300 TOLERATING PRBC TRANSFUSION,NO TRANFUSION REACTION NOTED.
[2018-05-22] MEDS: ALBUTEROL FS 2.5 MG/0.5 ML VIAL.NEB NEB SCH ×6 (03:50→23:53)
--- NOTE | 2018-05-22 05:10 | NUR ---
CHAIN PULLER NOTES PRBC TRANSFUSION,NO TRANSFUSION REACTION NOTED,REMAINS STABLE.NOTED TO BE MORE RESPONSIVE AND MORE ALERT. 0500 AM CARE DONE,NO BLEEDING NOTED ,HAD LARGE AMOUNT BROWNISH SOFT BM.
--- NOTE | 2018-05-22 06:30 | NUR ---
FOAM RUBBER CURER NOTES ABLE TO GET IN TOUCH WITH SON,UPDATED HIM ON PATIENT'S CONDITION,CONSENTS WERE OBTAINED FOR BLOOD TRANSFUSION AND PICC LINE INSERTION,AGREED TO BOTH PROCEDURE AND MEASURES.
--- NOTE | 2018-05-22 07:00 | NUR ---
GRINDING MACHINE OPERATOR NOTES REPORT GIVEN TO ANTOINETTE
[2018-05-22 07:01] LABS: BASOPHILS # (AUTO) 0.2 /CMM (0.0-0.2); BASOPHILS % (AUTO) 0.9 % (0.0-2.0); EOSINOPHILS % (AUTO) 0.6 % (0.0-6.0); HEMATOCRIT 25 % (39-51); HEMOGLOBIN 7.9 g/dL (13.5-17.5); LYMPHOCYTES # (AUTO) 0.4 /CMM (0.8-4.8); LYMPHOCYTES % (AUTO) 2.2 % (20.0-44.0); MEAN CORPUSCULAR HGB CONC 32 g/dl (31.0-36.0); MEAN CORPUSCULAR VOLUME 86 fL (80-96); MONOCYTES % (AUTO) 4.8 % (2.0-12.0); NEUTROPHILS # (AUTO) 18.6 /CMM (1.8-8.9); NEUTROPHILS % (AUTO) 91.5 % (43.0-81.0); PLATELET COUNT (AUTO) 234 /CMM (150-450); WHITE BLOOD COUNT (AUTO) 20.3 K/uL (4.3-11.0)
[2018-05-22 07:11] LABS: CALCIUM, SERUM 8.1 mg/dL (8.5-10.1); CARBON DIOXIDE 29 mmol/L (21-32); CHLORIDE 104 mmol/L (98-107); CREATININE 0.8 mg/dL (0.6-1.3); GLUCOSE 96 mg/dL (74-106); PHOSPHORUS 3.3 mg/dL (2.5-4.9); POTASSIUM 4.3 mmol/L (3.5-5.1); SODIUM SERUM 139 mmol/L (136-145); UREA NITROGEN, BLOOD 44 mg/dL (7-18)
[2018-05-22 07:12] LABS: CHOLESTEROL 73 mg/dL (<200); HDL CHOLESTEROL 21 mg/dL (40-60); LDL 46 mg/dL (0-99); TRIGLYCERIDES 84 mg/dL (30-150)
[2018-05-22] MEDS: IPRATROPIUM NEB FS 0.5 MG/2.5 ML AMPUL.NEB NEB SCH ×4 (07:52→19:59)
[2018-05-22] MEDS: MEROPENEM 1 G in IV NS 0.9% 100 ML IV SCH ×2 (08:36→16:55)
[2018-05-22] MEDS: VANCOMYCIN 1 GM in IV D5W 250ml IV SCH (12:06)
[2018-05-22] MEDS: LACTOBACILLUS RHAMNOSUS GG 1 EACH CAP.SPRINK PO SCH ×2 (12:08→17:46)
[2018-05-22 12:11] LABS: APPEARANCE,URINE CLEAR (CLEAR); BILIRUBIN,URINE NEGATIVE (NEGATIVE); BLOOD, URINE NEGATIVE Ery/uL (NEGATIVE); COLOR,URINE YELLOW (YELLOW); KETONES,URINE NEGATIVE (NEGATIVE); LEUKOCYTE ESTERASE ,URINE 1+ (NEGATIVE); NITRITE, URINE NEGATIVE (NEGATIVE); PH,URINE 7.5 (5.0-8.0); PROTEIN,URINE NEGATIVE (NEGATIVE); UGLUCOSE NEGATIVE (NEGATIVE)
[2018-05-22] MEDS ORDERED: FEE PK DOSING 1 MIN EA MC ONE (12:21)
[2018-05-22 12:54] LABS: BACTERIA,URINE 1+ /HPF (None Seen); RBC,URINE 0-2 /HPF (0-2); SQUAMOUS EPITHELIAL CELL,UR None Seen /HPF (None Seen)
[2018-05-22] MEDS ORDERED: LIDOCAINE 2%-EPI 1:100,000 30 ML VIAL TP ONE (16:30)
[2018-05-22] MEDS ORDERED: SILVER NITRATE APPLICATOR 1 EA BOX TP ONE (16:30)
--- NOTE | 2018-05-22 19:30 | NUR ---
PHOTOENGRAVING HELPER: RECEIVED PT AWAKE, ON VENT CONNECTED TO TRACH WT SETTINGS ORDERED. NO ACUTE DISTRESS, NO EVIDENCE OF DISCOMFORT. ABLE TO FOLLOW SIMPLE COMMANDS. NOTED WT LARGE AMT. OF ORAL THIN CLEAR SECRETIONS. SUCTIONED AND TOLERATED WELL. SR-ST ON RAIL GANG SUPERVISOR. AFEBRILE. CONDOM CATHETER INTACT DRAINING YELLOW URINE TO GRAVITY. GT CLAMPED AT THIS TIME. JENNY PICC INFUSING LEVOPHED 1MCG/MIN FOR BP SUPPORT. NO S/S OF PICC LINE COMPLICATIONS. HOB AT 35 DEGREES. SAFETY PRECAUTION NOTED. WILL CONTINUE TO MONITOR.
[2018-05-22] MEDS: PANTOPRAZOLE 40 MG VIAL IV SCH (21:34)
[2018-05-22] MEDS: NOREPINEPHRINE 8 MG in IV D5W 500 ML IV PRN (21:35)
[2018-05-23] VITALS (79 sets, daily range): BP systolic 88–126; BP diastolic 42–72
[2018-05-23] MEDS: MEROPENEM 1 G in IV NS 0.9% 100 ML IV SCH ×4 (00:14→23:40)
[2018-05-23] MEDS: ALBUTEROL FS 2.5 MG/0.5 ML VIAL.NEB NEB SCH ×6 (03:36→23:44)
[2018-05-23] MEDS ORDERED: VANCOMYCIN 1 GM VIAL ONE (04:29)
[2018-05-23] MEDS: VANCOMYCIN 1 GM in IV D5W 250ml IV SCH ×3 (04:33→22:29)
[2018-05-23 04:37] LABS: BASOPHILS # (AUTO) 0.1 /CMM (0.0-0.2); BASOPHILS % (AUTO) 0.3 % (0.0-2.0); EOSINOPHILS % (AUTO) 0.4 % (0.0-6.0); HEMATOCRIT 25 % (39-51); LYMPHOCYTES # (AUTO) 0.5 /CMM (0.8-4.8); LYMPHOCYTES % (AUTO) 2.6 % (20.0-44.0); MEAN CORPUSCULAR HGB CONC 32 g/dl (31.0-36.0); MEAN CORPUSCULAR VOLUME 86 fL (80-96); NEUTROPHILS # (AUTO) 18.8 /CMM (1.8-8.9); NEUTROPHILS % (AUTO) 91.7 % (43.0-81.0); PLATELET COUNT (AUTO) 222 /CMM (150-450); WHITE BLOOD COUNT (AUTO) 20.5 K/uL (4.3-11.0)
[2018-05-23 04:55] LABS: CALCIUM, SERUM 8.3 mg/dL (8.5-10.1); CARBON DIOXIDE 27 mmol/L (21-32); CHLORIDE 106 mmol/L (98-107); CREATININE 0.8 mg/dL (0.6-1.3); GLUCOSE 80 mg/dL (74-106); SODIUM SERUM 142 mmol/L (136-145); UREA NITROGEN, BLOOD 31 mg/dL (7-18)
[2018-05-23 05:03] LABS: PREALBUMIN 7.2 MG/DL (18.0-35.7)
--- NOTE | 2018-05-23 05:21 | NUR ---
TRACH'D SHERRI XLT # 6 ON VENT WITH NOTED SETTINGS, ALARMS ARE SET AND FUNCTIONAL. B/S BILATERALLY RALES NO SECRETION AFTER SUX'D. EQUAL CHEST RISE NOTED. VENT PLUGGED INTO RED OUTLET, AMBU BAG AT THE BEDSIDE. PT TOLERATING SETTINGS NO RESPIRATORY DISTRESS NOTED
[2018-05-23] MEDS: IV NS 0.9% 250 ML IV PRN (05:50)
--- NOTE | 2018-05-23 06:50 | NUR ---
LUMP MACHINE OPERATOR: NO SIGNIFICANT CHANGE OF CONDITION DURING THE SHIFT. STILL ON LEVOPHED AT 1MCG/MIN FOR BP SUPPORT. ALL NEEDS MET. WILL ENDORSE TO DAY SHIFT FOR CONTINUITY OF CARE.
[2018-05-23] MEDS: IPRATROPIUM NEB FS 0.5 MG/2.5 ML AMPUL.NEB NEB SCH ×4 (07:41→19:32)
--- NOTE | 2018-05-23 08:15 | NUR ---
ICU/RN INITIAL NOTES,AM RECEIVED REPORT FROM NIGHT NURSE. PT ALERT, FOLLOWS COMMANDS. TRACH TO VENT WITH SETTINGS ORDERED BY MD, NO ACUTE DISTRESS NOTED AT THIS TIME. PT SINUS ON TELE. LEVO OFF AT 0800, WILL CLOSELY MONITOR VS. RIGHT UPPER ARM PICC LINE PATENT AND INTACT, NO S/S OF INFECTION OR INFILTRATION NOTED. ALL NEEDS WILL BE ATTENDED TO. PT TURNED AND REPOSITIONED. WILL CONTINUE CARE
--- NOTE | 2018-05-23 08:25 | NUR ---
ORTHO/PROSTHETIC AIDE: ENDORSED TO JESUS CEE FOR CONTINUITY OF CARE. LEVOPHED TURNED OFF AT 0800.
[2018-05-23] MEDS ORDERED: POTASSIUM CHLORIDE 20 MEQ POWDER PACKET GT ONE ×2 (09:30→13:00)
[2018-05-23] MEDS: LACTOBACILLUS RHAMNOSUS GG 1 EACH CAP.SPRINK PO SCH ×2 (09:35→17:25)
--- NOTE | 2018-05-23 10:08 | NUR ---
WOUND CARE CONSULT WOUND CARE RECEIVED CONSULT FOR SACRAL DECUB PRESENT ON ADMISSION. WOUND CARE WILL DEFER CONSULT AND ALL TREATMENT PLANS TO PLASTIC SURGICAL TEAM WHO ARE CURRENTLY FOLLOWING THIS PATIENT. PATIENT WITH JORDAN AT 10, ALL PRESSURE ULCER PREVENTION MEASURES ARE CURRENTLY IN PLACE. WILL SEE PRN.
--- NOTE | 2018-05-23 14:30 | NUR ---
ICU/RN: SACRAL AND BILATERAL BUTTOCKS WOUND DEBRIDEMENT DONE. DRESSING APPLIED. NO S/S OF BLEEDING NOTED. WILL CONTINUE TO MONITOR AND ASSESS.
[2018-05-23] MEDS: DAKINS QUARTER STRENGTH (0.125%) 480 ML BOTTLE TOP SCH (17:25)
[2018-05-23] MEDS ORDERED: GLUCERNA 1.2 1,000 ML BOTTLE NG PRN (18:30)
--- NOTE | 2018-05-23 19:30 | NUR ---
DEMAND GENERATOR MANAGER NOTE PT RECEIVED AWAKE AND IN BED. ALERT TO NAME AND ABLE TO MOUTH WORDS. ON MECH VENT WITH SETTINGS WELL TOLERATED AND SATURATING 100%. BREATHING UNLABORED. NOTED WITH MODERATE AMOUNT OF MOUTH SECRETIONS AND SUCTIONED. HOB ELEVATED AND ON ASPIRATION PRECAUTIONS. IV JENNY PICC CLEAN, DRY AND PATENT. CONDOM CATH IN PLACE AND DRAINING. ENDORSED BY PREVIOUS RN TO START TUBE FEEDING AT A LOW RATE AND INCREASE TOLERATED. WILL CONTINUE TO MONITOR.
--- NOTE | 2018-05-23 19:31 | NUR ---
ICU/RN ENDING NOTES,AM REPORT ENDORSED TO NIGHT NURSE. PT RESTING COMFORTABLY. TRACH TO VENT, NO DISTRESS. ALL NEEDS ATTENDED TO, SAFETY MEASURES TAKEN, BED IN LOW POSITION, SIDE RAILS UP, CALL LIGHT WITHIN REACH.
--- NOTE | 2018-05-23 19:32 | NUR ---
RECEIVED PT TRACH SHILEY 6 XLT. PT IS ALERT , FOLLOWS COMMAND. NO RESP DISTRESS NOTED. PT TOLERATING VENT SETTINGS. BREATHING TX GIVEN , NO ADVERSE REACTION NOTED. SUCTIONED SMALL AMOUNT OF WHITE THIN SECRETIONS. VENT ALARMS SET AND AUDIBLE. AMBU BAG AT BEDSIDE. TRACH PATENT AND SECURED. CUFF STRAIN TECHNICIAN. WILL CONTINUE TO MONITOR.
[2018-05-23] MEDS: PANTOPRAZOLE 40 MG VIAL IV SCH (21:28)
[2018-05-24] VITALS (24 sets, daily range): BP systolic 92–129; BP diastolic 53–76
[2018-05-24] MEDS: ACETAMINOPHEN 325 MG TABLET PO PRN (01:21)
[2018-05-24] MEDS: ALBUTEROL FS 2.5 MG/0.5 ML VIAL.NEB NEB SCH ×6 (03:31→22:45)
[2018-05-24 04:48] LABS: OCCULT BLOOD STOOL POSITIVE (NEGATIVE)
--- NOTE | 2018-05-24 05:00 | NUR ---
TRAVEL OCCUPATIONAL THERAPIST NOTE COLLECTED STOOL FOR OB AND SENT TO LAB.
[2018-05-24 05:13] LABS: CALCIUM, SERUM 8.3 mg/dL (8.5-10.1); CARBON DIOXIDE 27 mmol/L (21-32); CHLORIDE 107 mmol/L (98-107); CREATININE 0.8 mg/dL (0.6-1.3); GLUCOSE 94 mg/dL (74-106); POTASSIUM 3.6 mmol/L (3.5-5.1); SODIUM SERUM 142 mmol/L (136-145); UREA NITROGEN, BLOOD 28 mg/dL (7-18)
[2018-05-24] MEDS: IV NS 0.9% 250 ML IV PRN (05:20)
--- NOTE | 2018-05-24 06:59 | NUR ---
MULTIPLE KNIFE EDGE TRIMMER OPERATOR NOTE PT REMAINED STABLE DURING SHIFT. NO ACUTE DISTRESS NOTED. VENT SETTINGS WELL TOLERATED. SUCTIONED NEEDED. REPOSITIONED Q2H. STOOL OB POSITIVE. WILL ENDORSE TO NEXT SHIFT FOR CONTINUITY OF CARE.
--- NOTE | 2018-05-24 07:15 | NUR ---
RN INITIAL NOTES RECEIVED PT INTUBATED, ON VENT. NO RESPIRATORY DISTRESS NOTED. NO SOB NOTED. HOB ELEVATED. NO SIGNS OF PAIN NOTED. JENNY PICC IN PLACE. GT IN PLACE. TOLERATING GTF WELL. NO RESIDUAL NOTED. CONDOM CATH IN PLACE. NO HEMATURIA NOTED. BLE ELEVATED. PT COMFORTABLE. WILL MONITOR.
[2018-05-24] MEDS: IPRATROPIUM NEB FS 0.5 MG/2.5 ML AMPUL.NEB NEB SCH ×4 (07:44→19:32)
[2018-05-24] MEDS: MEROPENEM 1 G in IV NS 0.9% 100 ML IV SCH ×3 (08:18→23:08)
[2018-05-24] MEDS: DAKINS QUARTER STRENGTH (0.125%) 480 ML BOTTLE TOP SCH (08:18)
[2018-05-24] MEDS: LACTOBACILLUS RHAMNOSUS GG 1 EACH CAP.SPRINK PO SCH ×2 (08:18→16:13)
--- NOTE | 2018-05-24 08:55 | NUR ---
RT NOTE RECEIVED PT MECHANICALLY VENTILATED VIA SHILEY 6 XLT CUFFED TRACHEOSTOMY TUBE. TRACH TUBE MIDLINE AND SECURE. CUFF INFLATED. VENTILATOR SETTINGS PRESCRIBED. ALARMS SET PER PROTOCOL AND AUDIBLE. VENT PLUGGED IN TO RED OUTLET. AMBU BAG AT BED SIDE. NO DISTRESS NOTED AT MOMENT. PT AWAKE AND ALERT. Addendum: 05/24/18 at 0857 by MARIA TERESA HUGHES RT Amended: Links added.
[2018-05-24] MEDS: HYDROCODONE/APAP 5/325MG 1 EACH TABLET PO PRN ×2 (09:04→23:09)
[2018-05-24] MEDS: PANTOPRAZOLE 40 MG VIAL IV SCH ×2 (09:04→21:09)
--- NOTE | 2018-05-24 09:15 | NUR ---
RN NOTES 0845 SEEN AND EXAMINED BY MELISSA CEDILLO NP. AWARE OF LAB VALUES AND IMAGING STUDIES. PT OFF LEVO SINCE YESTERDAY AT 0800. BP WNL. PT TOLERATING VENT WELL. NO SOB NOTED. KEPT HOB ELEVATED. FOR GI CONSULT WITH DR CONTRERAS FOR POSITIVE STOOL OB. WILL CONTINUE TO MONITOR 0900 SEEN AND EXAMINED BY DR LUO. AWARE OF CURRENT LAB VALUES AND CXR RESULT. NO SOB NOTED. WILL CONTINUE TO MONITOR.
--- NOTE | 2018-05-24 10:00 | NUR ---
[facility] PERSONNEL DIRECTOR NOTES RECEIVED PT FROM ICU TO ROOM 109 BY STACY ACCOMPANIED WITH ICU STAFF AND RT WITH TRACH EMILILEY 6XLT AND VENT SETTINGS AC 16,FIO2 45%,PEEP-5.ALERT/ORIENTED X1 WITH MOUTH WORDS AND CAN UNDERSTAND COMMANDS.ON TELE HR IS 106 WITH SR.NO SOB AND ACUTE DISTRESS NOTED.MILD SECRETIONS NOTED WITH MODERATE SUCTIONING.HAS CONDOM CATHETER WITH CLEAR YELLOW COLOR URINE.PEG TUBE IS IN PLACE WITH G TUBE FEEDING GLUCERNA @30CC/HR.NO RESIDUAL NOTED.3 LUMEN PICC LINE IS ON RIGHT UA,SITE IS CLEAN,DRY AND INTACT.NO INFILTRATION NOTED.SKIN ASSESSMENT IS DONE AND WOUND IS NOTED.WOUND TREATMENT IS DONE.PT IS CLEAN AND DRY.WAITING FOR THE BODY STRAIGHTENER FOR THE CONSULTATION FOR STOOL OCCULT BLOOD POSITIVE. SAFETY IS MAINTAINED AT ALL TIMES.BED IS IN LOW POSITION AND LOCKED.BED ALARM IS ON.CALL LIGHT IS WITHIN REACH.WILL CONTINUE TO MONITOR THE PT CLOSELY.
--- NOTE | 2018-05-24 10:05 | NUR ---
RN NOTES PT TRANSFERRED TO ROOM 109. PT VS WNL. NO SOB NOTED. NO SIGNS OF PAIN NOTED. JOSETTE RN TOOK OVER PT'S CARE. PT IN STABLE CONDITION
--- NOTE | 2018-05-24 10:47 | NUR ---
RT NOTE PT TRANSFERRED TO [facility] ROOM 109. PT BAGGED FOR TRANSPORT. PLACED ON BACK ON VENT ON SETTINGS PRESCRIBED. AMBU BAG AT BED SIDE. NO DISTRESS NOTED. VENT PLUGGED IN TO RED OUTLET. SUCTION SET UP AND WORKING. Addendum: 05/24/18 at 1049 by MARIA TERESA HUGHES RT Amended: Links added.
--- NOTE | 2018-05-24 11:15 | NUR ---
[facility] RN NOTES TRACY WINTERS SEEN THE PT AND PLANNED TO DO EGD TO RULE OUT GI BLEEDING.NPO STARTS NOW AND STOP G TUBE FEEDING.CALLED THE RESPONSIBLE CONSTITUTION PARTY AND LEFT THE MESSAGE FOR THE CONSENT.AWAITING FOR THE CALL BACK.
--- NOTE | 2018-05-24 11:19 | NUR ---
[facility] RN NOTES PHARMACIST CALLED AND SAID TO D/C IV LEVOPHED PT TRANSFERRED FROM ICU TO [facility].NEW ORDERS NOTED AND CARRIED OUT.
--- NOTE | 2018-05-24 15:10 | NUR ---
[facility] RN NOTES FROM OR CALLED PER ,POSTPONED THE EGD FROM TODAY TO TOMORROW AM AND CAN RESUME G TUBE FEEDING.NEW ORDERS NOTED AND CARRIED OUT.
[2018-05-24] MEDS ORDERED: GLUCERNA 1.2 1,000 ML BOTTLE PEG SCH (16:30)
--- NOTE | 2018-05-24 18:41 | NUR ---
[facility] RN CLOSING NOTES PT IS ON BED WITH TRACH AND VENT SETTINGS.RESPIRATION IS EVEN AND NONLABORED.VITAL SIGNS ARE CHECKED AND RECORDED.IV ATB MERREM IS RUNNING.CONDOM CATHETER AND G TUBE IS IN PLACE AND RESIDUAL NOTED.ENDORSED TO WOOD CABINETMAKER RN FOR CONTINUITY OF CARE AND PLANNING FOR EGD TOMORROW AND NPO MIDNIGHT.
[2018-05-24] MEDS ORDERED: VANCOMYCIN 1 GM in IV D5W 250ml IV SCH (21:00)
[2018-05-25] VITALS: BP 132/46
--- NOTE | 2018-05-25 01:49 | NUR ---
PT RCVD TRACH'D ON MECHANICAL VENT WITH CHARTED SETTINGS. HHN TX GIVEN AND NO ADVERSE REACTION NOTED. SX DONE. PT TRACH PATENT AND SECURE. ALARMS ARE SET AND AUDIBLE. VENT PLUGGED INTO RED OUTLET. AMBU BAG AT BEDSIDE. WILL CONTINUE TO MONITOR. Addendum: 05/25/18 at 0151 by MARILU VANN RT Amended: Links added.
[2018-05-25] MEDS: ALBUTEROL FS 2.5 MG/0.5 ML VIAL.NEB NEB SCH ×6 (02:36→23:27)
[2018-05-25 04:00] VITALS: BP 109/55
--- NOTE | 2018-05-25 06:41 | NUR ---
PT NOTED WITH LOW URINARY OUTPUT 100 ML, PAGED DERDERIAN VOIP NETWORK ENGINEER, WAITING FOR CALL BACK, BLADDER SCANNER DONE, SHOWS 600 ML.
[2018-05-25 06:43] LABS: BASOPHILS % (AUTO) 0.2 % (0.0-2.0); EOSINOPHILS % (AUTO) 1.3 % (0.0-6.0); HEMATOCRIT 26 % (39-51); HEMOGLOBIN 8.3 g/dL (13.5-17.5); LYMPHOCYTES # (AUTO) 0.9 /CMM (0.8-4.8); LYMPHOCYTES % (AUTO) 5.4 % (20.0-44.0); MEAN CORPUSCULAR HGB CONC 32 g/dl (31.0-36.0); MEAN CORPUSCULAR VOLUME 87 fL (80-96); MONOCYTES # (AUTO) 0.9 /CMM (0.1-1.30); MONOCYTES % (AUTO) 5.5 % (2.0-12.0); NEUTROPHILS # (AUTO) 14.2 /CMM (1.8-8.9); NEUTROPHILS % (AUTO) 87.6 % (43.0-81.0); PLATELET COUNT (AUTO) 139 /CMM (150-450); WHITE BLOOD COUNT (AUTO) 16.2 K/uL (4.3-11.0)
[2018-05-25 06:59] LABS: CALCIUM, SERUM 8.6 mg/dL (8.5-10.1); CARBON DIOXIDE 28 mmol/L (21-32); CHLORIDE 105 mmol/L (98-107); GLUCOSE 94 mg/dL (74-106); POTASSIUM 4.1 mmol/L (3.5-5.1); SODIUM SERUM 141 mmol/L (136-145); UREA NITROGEN, BLOOD 34 mg/dL (7-18)
[2018-05-25] MEDS: IPRATROPIUM NEB FS 0.5 MG/2.5 ML AMPUL.NEB NEB SCH ×4 (07:21→20:14)
[2018-05-25 08:00] VITALS: BP 141/53
--- NOTE | 2018-05-25 08:00 | NUR ---
RN NOTE: PATIENT RECEIVED ALERT AWAKE ORIENTED X 1. ON VENT-TRAC, SETTINGS TOLERATING WELL. HOB ELEVATED. ASPIRATION PRECAUTIONS OBSERVED. G-TUBE CLAMPED, PLAN FOR EGD TODAY. RECEIVED WITH ABDOMEN DISTENDED WITH MINIMAL URINE OUTPUT. SCROTUM & PENIS SWOLLEN WITH OTHER SKIN WOUNDS. CONTINUE WITH PLAN OF CARE. SAFETY MEASURES OBSERVED.
--- NOTE | 2018-05-25 08:24 | NUR ---
RT NOTE RECEIVED PT MECHANICALLY VENTILATED VIA SHILEY 6 XLT CUFFED TRACHEOSTOMY TUBE. CUFF INFLATED. TRACH TUBE MIDLINE AND SECURE. VENTILATOR SETTINGS PRESCRIBED. ALARMS SET PER PROTOCOL AND AUDIBLE. VENT PLUGGED IN TO RED OUTLET. AMBU BAG AT BED SIDE. NO DISTRESS NOTED AT MOMENT. Addendum: 05/25/18 at 0827 by MARIA TERESA HUGHES RT Amended: Links added.
[2018-05-25] MEDS: LACTOBACILLUS RHAMNOSUS GG 1 EACH CAP.SPRINK PO SCH ×2 (09:00→16:16)
[2018-05-25] MEDS: DAKINS QUARTER STRENGTH (0.125%) 480 ML BOTTLE TOP SCH (09:21)
[2018-05-25] MEDS: PANTOPRAZOLE 40 MG VIAL IV SCH ×2 (09:21→21:33)
[2018-05-25] MEDS: MEROPENEM 1 G in IV NS 0.9% 100 ML IV SCH ×3 (09:21→23:45)
--- NOTE | 2018-05-25 11:00 | NUR ---
RN NOTE: MELISSA TWIST MAKER MADE AWARE ABOUT SWELLING OF PENIS & SCROTUM WITH MINIMAL URINE OUTPUT.
[2018-05-25 12:00] VITALS: BP 135/45
--- NOTE | 2018-05-25 13:35 | NUR ---
RN NOTE: F/C INSERTION. PATIENT SEEN & ASSESSED BY DR. Lane MCKEON UROLOGIST AT BEDSIDE, 14 Fr. CAUDE CATH INSERTED BY MD, TOLERATED WELL BY THE PATIENT. CONTINUE TO MONITOR.
[2018-05-25 16:00] VITALS: BP 129/99
[2018-05-25 20:00] VITALS: BP 120/51
--- NOTE | 2018-05-25 22:04 | NUR ---
RECEIVED PT TRACHED SHLY 6 XLT ON VENT. NO RESP DISTRESS. PT IS AWAKE TOLERATING VENT SETTINGS. SX'D FOR MOD AMT OF THIN WHITE SECRETIONS. VENT ALARMS SET AND AUDIBLE. AMBU BAG AT BEDSIDE. VENT PLUGGED INTO RED OUTLET. WILL CONTINUE TO MONITOR. Addendum: 05/25/18 at 2205 by ALONSO BENSON RT Amended: Links added.
[2018-05-26] VITALS: BP 117/75
[2018-05-26] MEDS: ALBUTEROL FS 2.5 MG/0.5 ML VIAL.NEB NEB SCH ×6 (03:20→23:18)
[2018-05-26 04:00] VITALS: BP 134/76
[2018-05-26 06:25] LABS: CALCIUM, SERUM 8.8 mg/dL (8.5-10.1); CARBON DIOXIDE 26 mmol/L (21-32); CHLORIDE 107 mmol/L (98-107); CREATININE 1.1 mg/dL (0.6-1.3); GLUCOSE 98 mg/dL (74-106); POTASSIUM 4.4 mmol/L (3.5-5.1); SODIUM SERUM 143 mmol/L (136-145); UREA NITROGEN, BLOOD 35 mg/dL (7-18)
[2018-05-26] MEDS: HYDROCODONE/APAP 5/325MG 1 EACH TABLET PO PRN ×2 (06:33→16:01)
[2018-05-26] MEDS: IPRATROPIUM NEB FS 0.5 MG/2.5 ML AMPUL.NEB NEB SCH ×4 (07:48→20:03)
[2018-05-26 08:00] VITALS: BP_SYST 122; BP_DIAS 57; BP_DIAS 59
[2018-05-26] MEDS: MEROPENEM 1 G in IV NS 0.9% 100 ML IV SCH ×3 (08:28→23:08)
[2018-05-26] MEDS: DAKINS QUARTER STRENGTH (0.125%) 480 ML BOTTLE TOP SCH (08:29)
[2018-05-26] MEDS: LACTOBACILLUS RHAMNOSUS GG 1 EACH CAP.SPRINK PO SCH ×2 (08:59→16:01)
[2018-05-26] MEDS: PANTOPRAZOLE 40 MG VIAL IV SCH ×2 (08:59→21:43)
[2018-05-26] MEDS ORDERED: MAGNESIUM HYDROXIDE 30 ML UDC PO PRN (10:30)
[2018-05-26 12:00] VITALS: BP 121/53
[2018-05-26 16:00] VITALS: BP 109/61
--- NOTE | 2018-05-26 17:36 | NUR ---
RT END OF THE SHIFT REPORT: PT. 87 Y OLD MALE RECEIVED @0700 PT. TRACHE'D SHILEY # 6 XLT ON VENT. AWAKE NO DISTRESS NOTED. PT TOLERATING VENT SETTINGS. SUX'D FOR SMALL AMT OF THIN SECRETIONS. EQUAL CHEST RISE NOTED. TX'S GIVEN INLINE NO A/R NOTED VENT ALARMS SET AND AUDIBLE. PLUGGED TO RED OUT LET AMBU BAG AT BEDSIDE. WILL CONTINUE TO MONITOR. REPORT WILL BE PASS TO PM SHIFT. Addendum: 05/26/18 at 1737 by YELENA CHALRES RT Amended: Links added.
--- NOTE | 2018-05-26 19:15 | NUR ---
WOOLING MACHINE OPERATOR NOTE PATIENT RESTING IN BED IN STABLE CONDITION, NO RESPIRATORY DISTRESS NOTED, VENT SETTINGS ORDERED. SPO2 HIGH 90S TO 100%. NO SIGNS OF PAIN. PICC LINE ON RIGHT UPPER ARM INTACT SALINE LOCK. BRO CATHETER DRAINING YELLOW URINE TO GRAVITY. G TUBE FEEDING INFUSING ORDERED. BED IN LOW LOCKED POSITION, CALL LIGHT WITHIN REACH, ENDORSED TO SUBSTANCE ABUSE NURSE NURSE FOR CONTINUITY OF CARE.
[2018-05-26 20:00] VITALS: BP 92/60
--- NOTE | 2018-05-26 20:26 | NUR ---
pt received on vent via trach with charted settings. airway patent. trach secure via trach tie. pt awake. ambu bag at bedside. alarms set and audible, disconnect alarms checked plugged into red outlet suctioned a moderate amount of thick yellow secretions. pt receiving breathing tx q4 at this time. pt hob at 30 degrees. suctioned oral secretion from pts mouth Addendum: 05/26/18 at 2028 by MIKIE AKHTAR RT Amended: Links added.
[2018-05-26] MEDS: GLUCERNA 1.2 1,000 ML BOTTLE PEG SCH (23:26)
[2018-05-27] VITALS: BP 114/41
[2018-05-27] MEDS: ALBUTEROL FS 2.5 MG/0.5 ML VIAL.NEB NEB SCH ×5 (03:24→19:52)
[2018-05-27 04:00] VITALS: BP 117/51
[2018-05-27] MEDS: HYDROCODONE/APAP 5/325MG 1 EACH TABLET PO PRN (06:13)
[2018-05-27 06:34] LABS: CALCIUM, SERUM 8.4 mg/dL (8.5-10.1); CARBON DIOXIDE 28 mmol/L (21-32); CHLORIDE 108 mmol/L (98-107); CREATININE 1.3 mg/dL (0.6-1.3); GLUCOSE 137 mg/dL (74-106); SODIUM SERUM 142 mmol/L (136-145); UREA NITROGEN, BLOOD 45 mg/dL (7-18)
[2018-05-27] MEDS: IPRATROPIUM NEB FS 0.5 MG/2.5 ML AMPUL.NEB NEB SCH ×4 (07:58→19:52)
--- NOTE | 2018-05-27 07:58 | NUR ---
RT PT RECEIVED WITH A Command Information 6 XLT TRACH ON THE VENT WITH NOTED SETTINGS. PT IS AWAKE AND RESPONDS TO STIMULI WHEN SX'D. VENT ALARMS ARE SET AND AUDIBLE WITH BVM BY BEDSIDE. SANDBLASTING SUPERVISOR CUFF PRESSURE NOTED. VENT IS PLUGGED INTO RED OUTLET. PT SX'D SMALL THIN WHITE/CLEAR SECRETIONS. NO RESPIRATORY DISTRESS NOTED AT THIS TIME, WILL CONTINUE TO MONITOR. Addendum: 05/27/18 at 1040 by JAMAL ROMERO RT Amended: Links added.
[2018-05-27 08:00] VITALS: BP 129/62
--- NOTE | 2018-05-27 08:17 | NUR ---
LAB INSTRUCTOR NOTES PATIENT RECEIVED RESTING INSIDE ROOM. AWAKE, ALERT, ABLE TO MOUTH WORDS. CONTINUE WITH TRACH/VENT SETTINGS. AMBU BAG AT BEDSIDE. ONGOING GTF, GT PATENT AND IN PLACE. BRO CATHETER IN PLACE. WILL CONTINUE TO MONITOR. BED LOCKED AND IN LOW POSITION. BILATERAL UPPER SIDE RAILS UP AND LOCKED. MAINTAINED ASPIRATION PRECAUTIONS. CALL LIGHT WITHIN EASY REACH
[2018-05-27] MEDS: LACTOBACILLUS RHAMNOSUS GG 1 EACH CAP.SPRINK PO SCH ×2 (08:33→16:33)
[2018-05-27] MEDS: MEROPENEM 1 G in IV NS 0.9% 100 ML IV SCH ×2 (08:33→16:34)
[2018-05-27] MEDS: PANTOPRAZOLE 40 MG VIAL IV SCH ×2 (08:33→20:36)
[2018-05-27] MEDS: DAKINS QUARTER STRENGTH (0.125%) 480 ML BOTTLE TOP SCH (09:55)
[2018-05-27 12:00] VITALS: BP_SYST 126; BP_SYST 152; BP_DIAS 26; BP_DIAS 52
[2018-05-27 16:00] VITALS: BP_SYST 103; BP_SYST 106; BP_DIAS 50
--- NOTE | 2018-05-27 19:23 | NUR ---
TIRE WORKER NOTES PATIENT RESTING INSIDE ROOM. AWAKE, ALERT AND ORIENTED TO SELF, RESPONDS TO VERBAL AND TACTILE STIMULI. NO ACUTE DISTRESS. CONTINUE WITH VENT/TRACH. ONGOING GTF TOLERATED WELL. MAINTAINED ASPIRATION PRECAUTIONS, HOB ELEVATED AT 45. ALL NURSING NEEDS ATTENDED AND MET. PATIENT KEPT CLEAN, DRY AND COMFORTABLE. BILATERAL SOFT WRIST RESTRAINTS IN PLACE. BRO CATHETER IN PLACE. BRO CATHETER CARE DONE. ENDORSED TO INCOMING SHIFT FOR AMANDA. BED LOCKED AND IN LOW POSITION. BILATERAL UPPER SIDE RAILS UP AND LOCKED. CALL LIGHT WITHIN EASY REACH
--- NOTE | 2018-05-27 19:30 | NUR ---
ENDOSCOPY TECHNICAN NOTES PATIENT RESTING INSIDE ROOM. AWAKE, ALERT AND ORIENTED TO SELF, RESPONDS TO VERBAL AND TACTILE STIMULI. PATIENT REQUESTING WATER, PATIENT NPO, ORAL CARE DONE TO KEEP MOUTH MOIST. NO ACUTE DISTRESS. CONTINUE WITH VENT/TRACH. ONGOING GTF TOLERATED WELL. MAINTAINED ASPIRATION PRECAUTIONS, HOB ELEVATED AT 45. ALL NURSING NEEDS ATTENDED AND MET. PATIENT KEPT CLEAN, DRY AND COMFORTABLE. BILATERAL SOFT WRIST RESTRAINTS IN PLACE. BRO CATHETER IN PLACE. BED LOCKED AND IN LOW POSITION. BILATERAL UPPER SIDE RAILS UP AND LOCKED. CALL LIGHT WITHIN EASY REACH
--- NOTE | 2018-05-27 19:30 | NUR ---
SETTER JUICE PACKAGING MACHINES NOTE PATIENT RR IS STILL TACHY. RR RANGE FROM 37-40, HR WNL 87 SR. PATIENT GIVEN NORCO AT 12:18 AM, RR STILL HIGH. NOTIFIED MD. PENDING ORDERS.
[2018-05-27 20:00] VITALS: BP 115/62
[2018-05-28] VITALS: BP 118/57
[2018-05-28] MEDS: ALBUTEROL FS 2.5 MG/0.5 ML VIAL.NEB NEB SCH ×7 (00:01→23:46)
[2018-05-28] MEDS: MEROPENEM 1 G in IV NS 0.9% 100 ML IV SCH ×3 (00:08→16:00)
[2018-05-28] MEDS: HYDROCODONE/APAP 5/325MG 1 EACH TABLET PO PRN (00:08)
--- NOTE | 2018-05-28 01:29 | NUR ---
SKIFF OPERATOR NOTE WOUND CARE DONE, DRESSING CHANGED, PATIEN TURNED AND REPOSITIONED FOR PT COMFORT.
--- NOTE | 2018-05-28 01:42 | NUR ---
HANDSTITCHING MACHINE COLLAR FELLER NOTE NOTIFIED MD SOLANO, THE [facility] SUPERVISOR, THAT PATIENT ON VENT IS NOT TOLERATING VENT. PATIENT RR IS 40, PEAK PRESSURES 54. RT RECOMMENDS SEDATION, RN RECOMMENDED ATIVAN TO ADDRESS PATIENT AGITATION. MADE AWARE OF RECOMMENDATIONS. STATED, "I DON'T WANT TO MANAGE HIS VENT, ASK THE PAINTING TECHNICIAN." RN THANKED THE MD AND PROCEEDED TO CALL THE PULOMARY SPECIALIST. DR. GARRETT MADE AWARE OF PATIENT CONCERNS, AND ORDERED ATIVAN 1 MG IV PUSH Q 2 HR PRN FOR AGITATION.
[2018-05-28] MEDS ORDERED: LORAZEPAM INJ 2 MG/ML VIAL IV PRN (02:00)
[2018-05-28 04:00] VITALS: BP 111/50
--- NOTE | 2018-05-28 07:09 | NUR ---
MS RN NOTE PATIENT RESTING, NO S/S OF AGITATION/ DISTRESS. WOUND CARE GIVEN ORDERED. NO S/S OF DISTRESS. PT TOLERATED THE NIGHT RN WILL ENDORSE TO DAY FOR AMANDA. -
[2018-05-28 07:12] LABS: CALCIUM, SERUM 8.2 mg/dL (8.5-10.1); CARBON DIOXIDE 27 mmol/L (21-32); CHLORIDE 108 mmol/L (98-107); CREATININE 1.6 mg/dL (0.6-1.3); GLUCOSE 96 mg/dL (74-106); SODIUM SERUM 144 mmol/L (136-145); UREA NITROGEN, BLOOD 67 mg/dL (7-18)
[2018-05-28] MEDS: IPRATROPIUM NEB FS 0.5 MG/2.5 ML AMPUL.NEB NEB SCH ×4 (07:39→20:07)
[2018-05-28 08:00] VITALS: BP 86/49
[2018-05-28] MEDS: PANTOPRAZOLE 40 MG VIAL IV SCH ×2 (08:13→21:31)
[2018-05-28] MEDS: DAKINS QUARTER STRENGTH (0.125%) 480 ML BOTTLE TOP SCH (08:13)
[2018-05-28] MEDS: LACTOBACILLUS RHAMNOSUS GG 1 EACH CAP.SPRINK PO SCH ×2 (08:13→17:00)
[2018-05-28] MEDS ORDERED: FUROSEMIDE 100 MG/10 ML VIAL IV ONE (09:00)
[2018-05-28] MEDS ORDERED: SODIUM POLYSTYRENE SULFONATE 15 G/60 ML BOTTLE PO ONE ×2 (09:00→16:30)
--- NOTE | 2018-05-28 09:35 | NUR ---
RN NOTE: PATIENT RECEIVED ALERT AWAKE ORIENTED X 1. ON VENT-TRAC, SETTINGS TOLERATING WELL. HOB ELEVATED. ASPIRATION PRECAUTIONS OBSERVED. G-TUBE FEEDING RUNNIN ORDERED WITH NO RESIDUAL.MINIMAL URINE OUTPUT. SCROTUM & PENIS SWOLLEN WITH OTHER SKIN WOUNDS. CONTINUE WITH PLAN OF CARE. SAFETY MEASURES OBSERVED. WILL CONTINUE TO TREAT AND MONITOR.
[2018-05-28 12:00] VITALS: BP_SYST 101; BP_SYST 132; BP_DIAS 26; BP_DIAS 59
[2018-05-28 14:56] LABS: LYMPHOCYTES # (AUTO) 1.5 /CMM (0.8-4.8); LYMPHOCYTES % (AUTO) 7.7 % (20.0-44.0)
[2018-05-28 15:37] LABS: BASOPHILS # (AUTO) 0.2 /CMM (0.0-0.2); BASOPHILS % (AUTO) 0.8 % (0.0-2.0); EOSINOPHILS % (AUTO) 1.2 % (0.0-6.0); HEMATOCRIT 28 % (39-51); HEMOGLOBIN 8.2 g/dL (13.5-17.5); MEAN CORPUSCULAR HGB CONC 30 g/dl (31.0-36.0); MEAN CORPUSCULAR VOLUME 93 fL (80-96); MONOCYTES % (AUTO) 5.3 % (2.0-12.0); NEUTROPHILS # (AUTO) 16.1 /CMM (1.8-8.9); PLATELET COUNT (AUTO) 101 /CMM (150-450); RED BLOOD CELL COUNT(AUTO) 2.98 MIL/uL (4.5-6.0)
[2018-05-28 15:48] LABS: CALCIUM, SERUM 8.3 mg/dL (8.5-10.1); CARBON DIOXIDE 27 mmol/L (21-32); CHLORIDE 108 mmol/L (98-107); CREATININE 1.7 mg/dL (0.6-1.3); GLUCOSE 113 mg/dL (74-106); POTASSIUM 5.9 mmol/L (3.5-5.1); SODIUM SERUM 143 mmol/L (136-145); UREA NITROGEN, BLOOD 72 mg/dL (7-18)
--- NOTE | 2018-05-28 15:53 | NUR ---
RT NOTES. PT REC'D ON CURRENT SETTINGS, PT HAS A SHILEY #6XLT DISTAL CUFFED TRACH. THE TRACH IS DISTENDED OUT DUE TO PT HAVING A MASS PROTRUDING FROM HIS NECK PUSHING THE TRACH OUT. PT IS TACHYPNEIC. PT NOTED TO HAVE PULM. FIBROSIS WELL LARYNGEAL CA. DR. LUO AWARE. NO VENT CHANGES MADE. PT IS RECEIVING Q4 A/B BREATHING TREATMENTS. SX'D SCANT AMT OF THIN WHITE SECRETIONS. VENT PLUGGED INTO RED OUTLET. AMBU BAG AT HOB. Addendum: 05/28/18 at 1606 by KATIE MCDONALD RT Amended: Links added.
[2018-05-28 16:00] VITALS: BP_SYST 136; BP_SYST 91; BP_DIAS 32; BP_DIAS 84
--- NOTE | 2018-05-28 18:38 | NUR ---
nursing notes changed patient scaracl dressing and bilateral hands . dressing is clead dry and intact.
--- NOTE | 2018-05-28 19:30 | NUR ---
CLINICAL APPLICATION SPECIALIST NOTE, RECEIVED PATIENT ALERT AWAKE ORIENTED TO SELF, ON VENT SETTINGS, WITH TRACH, SETTINGS BY RT TOLERATING WELL, SR ON TELE MONITOR HR IN 80S, GT IN PLACED, G-TUBE FEEDING WELL AND TOLERATED WELL, NO RESIDUAL AT THIS TIME, HOB ELEVATED AT ALL TIMES FOR ASPIRATION PRECAUTIONS, FC IN PLACED, DRAINING YELLOW COLOR URINE BY GRAVITY, PATENCY INTACT, WITH MULTIPLE WOUNDS, WILL PROVIDE TX ORDERED, CONTINUE WITH PLAN OF CARE. WILL CONTINUE TO MONITOR CLOSELY.
[2018-05-28 20:00] VITALS: BP 93/45
--- NOTE | 2018-05-28 20:33 | NUR ---
RT NOTE: RECEIVED TRACH PT ON [facility] VENT. TRACH IS PATENT AND SECURED WITH RUBBER TIRE CURER DONE. ALARMS SET AND AUDIBLE. VENT PLUGGED INTO RED OUTLET. AMBU BAG AT BED SIDE. PT TOLERATING BREATHING TX WITH NO ADVERSE REACTION NOTED. SUCTION SMALL AMOUNT OF THIN WHITE SECRETIONS. PT IS TACHYPNEIC. WILL CONT TO MONITOR PT. Addendum: 05/29/18 at 0210 by SOURAV BELLA RT Amended: Links added.
[2018-05-29] VITALS: BP 89/57
[2018-05-29] MEDS: MEROPENEM 1 G in IV NS 0.9% 100 ML IV SCH ×2 (00:27→08:17)
[2018-05-29] MEDS: ALBUTEROL FS 2.5 MG/0.5 ML VIAL.NEB NEB SCH ×5 (02:38→19:54)
[2018-05-29 04:00] VITALS: BP 131/59
[2018-05-29] MEDS: ACETAMINOPHEN 325 MG TABLET PO PRN (04:43)
[2018-05-29 06:32] LABS: BASOPHILS # (AUTO) 0.1 /CMM (0.0-0.2); BASOPHILS % (AUTO) 0.5 % (0.0-2.0); EOSINOPHILS % (AUTO) 1.8 % (0.0-6.0); HEMATOCRIT 26 % (39-51); HEMOGLOBIN 8.1 g/dL (13.5-17.5); LYMPHOCYTES # (AUTO) 1.3 /CMM (0.8-4.8); LYMPHOCYTES % (AUTO) 6.7 % (20.0-44.0); MEAN CORPUSCULAR HGB CONC 31 g/dl (31.0-36.0); MEAN CORPUSCULAR VOLUME 92 fL (80-96); MONOCYTES # (AUTO) 0.8 /CMM (0.1-1.30); MONOCYTES % (AUTO) 4.5 % (2.0-12.0); NEUTROPHILS # (AUTO) 16.2 /CMM (1.8-8.9); NEUTROPHILS % (AUTO) 86.5 % (43.0-81.0); PLATELET COUNT (AUTO) 110 /CMM (150-450); RED BLOOD CELL COUNT(AUTO) 2.87 MIL/uL (4.5-6.0); WHITE BLOOD COUNT (AUTO) 18.7 K/uL (4.3-11.0)
[2018-05-29 06:37] LABS: ALANINE AMINOTRANSFERASE 17 U/L (12-78); ALKALINE PHOSPHATASE 153 U/L (46-116); ASPARTATE AMINOTRANSFERASE 44 U/L (15-37); BILIRUBIN,TOTAL 0.6 mg/dL (0.2-1.0); CALCIUM, SERUM 8.3 mg/dL (8.5-10.1); CARBON DIOXIDE 27 mmol/L (21-32); CHLORIDE 109 mmol/L (98-107); CREATININE 2.1 mg/dL (0.6-1.3); GLUCOSE 115 mg/dL (74-106); MAGNESIUM 2.8 mg/dL (1.8-2.4); PHOSPHORUS 4.1 mg/dL (2.5-4.9); SODIUM SERUM 144 mmol/L (136-145); TOTAL PROTEIN, SERUM 5.4 g/dL (6.4-8.2)
[2018-05-29 06:40] LABS: POTASSIUM 6.3 mmol/L (3.5-5.1); UREA NITROGEN, BLOOD 83 mg/dL (7-18)
--- NOTE | 2018-05-29 06:40 | NUR ---
SEX WORKER OR ESCORT NOTES, RECEIVED A CALL FROM LAB REPORTING CRITICAL K+ LEVEL OF 6.3, BUN 83, AND ALBUMIN 1.0, CALL MD GRAIN WAFER MACHINE OPERATOR KELLIE TO INFORM ABOUT CRITICAL LABS, OPERTAOR UNABLE TO REACH MD, AND STATED THAT MD WILL CALL BACK.
--- NOTE | 2018-05-29 06:54 | NUR ---
BLANK DRILLER ENDING NOTE, PATIENT ALERT AWAKE ORIENTED TO SELF, ON VENT SETTINGS, WITH TRACH, SETTINGS BY RT TOLERATING WELL, SR ON TELE MONITOR HR IN 80S, GT IN PLACED, G-TUBE FEEDING WELL AND TOLERATED WELL, NO RESIDUAL AT THIS TIME, HOB ELEVATED AT ALL TIMES FOR ASPIRATION PRECAUTIONS, FC IN PLACED, PATENCY INTACT, 100ML OF URINE OBTAINED, AND 1 WET DIAPER, CRITICAL LABS REPORTED BY LAB @638 AND CALLED MD TO INFORM THAT, AWAITING FOR CALL, WILL ENDORSE CONTINUITY OF CARE TO ONCOMING NURSE.
[2018-05-29] MEDS: GLUCERNA 1.2 1,000 ML BOTTLE PEG SCH (07:09)
[2018-05-29 07:41] LABS: CREATINE KINASE, TOTAL 80 U/L (39-308)
[2018-05-29] MEDS: IPRATROPIUM NEB FS 0.5 MG/2.5 ML AMPUL.NEB NEB SCH ×4 (07:58→19:54)
[2018-05-29 08:00] VITALS: BP_SYST 91; BP_DIAS 51; BP_DIAS 64
[2018-05-29] MEDS: PANTOPRAZOLE 40 MG VIAL IV SCH ×2 (08:18→20:43)
[2018-05-29] MEDS: LACTOBACILLUS RHAMNOSUS GG 1 EACH CAP.SPRINK PO SCH ×2 (08:18→17:14)
[2018-05-29] MEDS: DAKINS QUARTER STRENGTH (0.125%) 480 ML BOTTLE TOP SCH (08:18)
[2018-05-29] MEDS ORDERED: SODIUM POLYSTYRENE SULFONATE 15 G/60 ML BOTTLE PO ONE (11:30)
[2018-05-29 12:00] VITALS: BP_SYST 86; BP_SYST 87; BP_DIAS 35; BP_DIAS 78
[2018-05-29] MEDS ORDERED: FUROSEMIDE 40 MG/4 ML VIAL IV ONE (12:30)
[2018-05-29] MEDS ORDERED: DOSING PER PHARMACY-AMIKACI IV XX PRN (12:30)
[2018-05-29] MEDS ORDERED: FEE PK DOSING 1 MIN EA MC ONE (13:00)
[2018-05-29] MEDS ORDERED: D5W IV SCH (14:00)
[2018-05-29] MEDS ORDERED: AMIKACIN IV SCH (14:00)
[2018-05-29] MEDS: ALBUMIN 25% 25 GM in PREMIX 1 EA IV SCH ×4 (14:25→15:01)
[2018-05-29 15:57] LABS: ABG OXYGEN SATURATION 92.5 % (92.0-98.5); ABG PCO2 38.1 mmHg (35.0-45.0); ABG PH 7.452 (7.350-7.450); ABG PO2 66.9 mmHg (75.0-100.0); AaDO2 210.6 mmHg; MetHb 0.7 % (0.0-1.5); O2Hb 90.9 % (94.0-97.0); PEEP,BG 5 cm H2O; SITE, ABG Left Radial; VT, ABG 450 mL
[2018-05-29 16:00] VITALS: BP_SYST 87; BP_SYST 96; BP_DIAS 48; BP_DIAS 55
--- NOTE | 2018-05-29 19:29 | NUR ---
SURFACE GRINDER NOTE PATIENT RECEIVED ALERT SLEEPING, EASILY WOKEN UP ORIENTED X 1. ON VENT-TRAC, SETTINGS TOLERATING WELL. HOB ELEVATED. ASPIRATION PRECAUTIONS OBSERVED. G-TUBE FEEDING RUNNING ORDERED WITH NO RESIDUAL.MINIMAL URINE OUTPUT. SCROTUM & PENIS SWOLLEN WITH OTHER SKIN WOUNDS DRESSINGS INTACT. PATIENT TURNED AND REPOSITIONED FOR COMFORT AND SKIN PROTECTION. RN WLL CONTINUE WITH PLAN OF CARE. SAFETY MEASURES OBSERVED. WILL CONTINUE TO TREAT AND MONITOR.
[2018-05-29 20:00] VITALS: BP_SYST 105; BP_DIAS 41; BP_DIAS 45
--- NOTE | 2018-05-29 22:00 | NUR ---
MANAGER GRAPHIC NOTE WOUND CARE DONE, PATIENT TURNED AND REPOSITIONED FOR COMFORT.
[2018-05-30] VITALS (7 sets, daily range): BP systolic 90–113; BP diastolic 30–60
[2018-05-30] MEDS: ALBUTEROL FS 2.5 MG/0.5 ML VIAL.NEB NEB SCH ×7 (00:31→23:09)
[2018-05-30 05:42] LABS: BASOPHILS # (AUTO) 0.1 /CMM (0.0-0.2); BASOPHILS % (AUTO) 0.6 % (0.0-2.0); EOSINOPHILS % (AUTO) 1.2 % (0.0-6.0); HEMATOCRIT 24 % (39-51); HEMOGLOBIN 7.3 g/dL (13.5-17.5); LYMPHOCYTES # (AUTO) 1.5 /CMM (0.8-4.8); LYMPHOCYTES % (AUTO) 7.3 % (20.0-44.0); MEAN CORPUSCULAR HGB CONC 30 g/dl (31.0-36.0); MEAN CORPUSCULAR VOLUME 93 fL (80-96); MONOCYTES # (AUTO) 0.9 /CMM (0.1-1.30); MONOCYTES % (AUTO) 4.5 % (2.0-12.0); NEUTROPHILS # (AUTO) 17.7 /CMM (1.8-8.9); NEUTROPHILS % (AUTO) 86.4 % (43.0-81.0); PLATELET COUNT (AUTO) 102 /CMM (150-450); WHITE BLOOD COUNT (AUTO) 20.5 K/uL (4.3-11.0)
[2018-05-30 05:55] LABS: CALCIUM, SERUM 8.2 mg/dL (8.5-10.1); CARBON DIOXIDE 27 mmol/L (21-32); CHLORIDE 109 mmol/L (98-107); CREATININE 2.6 mg/dL (0.6-1.3); GLUCOSE 97 mg/dL (74-106); MAGNESIUM 2.8 mg/dL (1.8-2.4); SODIUM SERUM 143 mmol/L (136-145)
[2018-05-30 06:00] LABS: POTASSIUM 6.5 mmol/L (3.5-5.1); UREA NITROGEN, BLOOD 104 mg/dL (7-18)
--- NOTE | 2018-05-30 06:26 | NUR ---
QUALITY CONTROL INDUSTRIAL ENGINEER NOTE PATIENT TOLERATED THE NIGHT WELL. NO ACUTE CHANGES. LAB CALLED TO INFORM OF HIGH POTASSIUM 6.5/ HIGH BUN 104. WILL ENDORSE TO DAY SHIFT FOR CONTINUITY OF CARE. PATIENT HAS NO /SOB HR 70'S ON TELE MONITOR. WOUND CARE DONE ORDERED. CARE GIVEN ORDERED.
[2018-05-30] MEDS: IPRATROPIUM NEB FS 0.5 MG/2.5 ML AMPUL.NEB NEB SCH ×4 (07:37→19:36)
[2018-05-30] MEDS ORDERED: SODIUM POLYSTYRENE SULFONATE 15 G/60 ML BOTTLE PO ONE (09:00)
--- NOTE | 2018-05-30 10:00 | NUR ---
Linked GI assessment note. Pt remains NPO for procedure. Pt has no residual noted. Addendum: 05/30/18 at 1941 by EVA BALES RN Amended: Links added.
--- NOTE | 2018-05-30 10:50 | NUR ---
TEL nurse ,US guide of left thoracentesis done by and all specimen sent to lab as ordered
[2018-05-30] MEDS: LACTOBACILLUS RHAMNOSUS GG 1 EACH CAP.SPRINK PO SCH ×2 (11:31→18:41)
[2018-05-30] MEDS: DAKINS QUARTER STRENGTH (0.125%) 480 ML BOTTLE TOP SCH (11:32)
[2018-05-30] MEDS: PANTOPRAZOLE 40 MG VIAL IV SCH ×2 (11:32→22:08)
[2018-05-30 14:12] LABS: *SPE A/G RATIO 0.4 (0.7-1.7); *SPE ALBUMIN 1.4 g/dL (2.9-4.4); *SPE ALPHA-1-GLOBULIN 0.4 g/dL (0.0-0.4); *SPE ALPHA-2-GLOBULIN 0.6 g/dL (0.4-1.0); *SPE BETA GLOBULIN 0.8 g/dL (0.7-1.3); *SPE GLOBULIN, TOTAL 3.7 g/dL (2.2-3.9); *SPE M-SPIKE 0.3 g/dL (Not Observed)
--- NOTE | 2018-05-30 17:48 | NUR ---
Report given to Dialysis nurse Ousmane. HD nurse aware of patient's K+, creatinine, BUN, & neurostatus.
--- NOTE | 2018-05-30 18:00 | NUR ---
Pt has had a total of 2 bowel movements. Liquid stool noted. Pt cleansed both times and drsg changed to coccyx area. Wet to dry with Daikin's solution. Dry gauze and mepilex covering with tape to secure. Performed drsg change to bilateral arms of weeping serrous skin tears. Pt tolerated well.
--- NOTE | 2018-05-30 19:40 | NUR ---
RECEIVED PT TRACHED SHLY 6 XLT ON VENT. NO RESP DISTRESS. PT IS AWAKE TOLERATING VENT SETTINGS. SX'D FOR MOD AMT OF THIN WHITE SECRETIONS. VENT ALARMS SET AND AUDIBLE. AMBU BAG AT BEDSIDE. VENT PLUGGED INTO RED OUTLET. WILL CONTINUE TO MONITOR. Addendum: 05/30/18 at 1940 by LATOYA PETERSON RT Amended: Links added.
--- NOTE | 2018-05-30 20:56 | NUR ---
BIODIESEL PLANT MANAGER INITIAL NOTE: PATIENT RECEIVED ALERT AWAKE ORIENTED X 1. ON VENT-TRAC, SETTINGS TOLERATING WELL. HOB ELEVATED. ASPIRATION PRECAUTIONS OBSERVED. G-TUBE FEEDING RUNNIN ORDERED WITH NO RESIDUAL.MINIMAL URINE OUTPUT. S/P HD PLACEMENT LT GROIN, POSSIBLE DAILYSIS IN AM, STAT BMP ORDERED BY CHAPIN, S/P THORACENTISIS, K+ 6.5 MD AWARE, SCROTUM & PENIS SWOLLEN WITH OTHER SKIN WOUNDS. CONTINUE WITH PLAN OF CARE. SAFETY MEASURES OBSERVED. WILL CONTINUE TO TREAT AND MONITOR.
[2018-05-30 21:12] LABS: CALCIUM, SERUM 8.2 mg/dL (8.5-10.1); CARBON DIOXIDE 26 mmol/L (21-32); CHLORIDE 110 mmol/L (98-107); GLUCOSE 94 mg/dL (74-106); POTASSIUM 6.1 mmol/L (3.5-5.1); SODIUM SERUM 146 mmol/L (136-145)
[2018-05-30 21:15] LABS: UREA NITROGEN, BLOOD 109 mg/dL (7-18)
[2018-05-30] MEDS: CEFEPIME 1 GM in IV D5W 50 ML IV SCH (22:02)
[2018-05-30] MEDS: DOXYCYCLINE 100 MG in IV D5W 100 ML IV SCH (23:02)
[2018-05-31] VITALS (83 sets, daily range): BP systolic 58–110; BP diastolic 28–72
[2018-05-31] MEDS: LEVOFLOXACIN 250 MG /D5W 50 ML 250 MG in PREMIX 1 EA IV SCH ×2 (00:26→21:58)
[2018-05-31] MEDS: ALBUTEROL FS 2.5 MG/0.5 ML VIAL.NEB NEB SCH ×6 (03:03→23:44)
--- NOTE | 2018-05-31 03:50 | NUR ---
0350 DR HOPKINS MADE AWARE OF PATIENT'S LOW B/P IN THE 50S WITH ORDER MADE. ORDER NOTED AND CARRIED OUT. PT. WITH EYES CLOSED. RESPONSIVE TO TACTILE STIMULI. NO SIGNS OF DISTRESS NOTED. PLACED ON [place]G POSITION FOR BP SUPPORT. O2 SATURATION AT 100%. MONITORING CLOSELY.
--- NOTE | 2018-05-31 04:05 | NUR ---
0405 DR. HOPKINS UPDATED ON PATIENT'S BP IN THE 50S AFTER NS BOLUS WITH ORDER TO RE CHECK IN 30 MINS.
[2018-05-31] MEDS ORDERED: IV NS 0.9% 250 ML BAG IV ONE (04:30)
[2018-05-31 04:39] LABS: BASOPHILS # (AUTO) 0.1 /CMM (0.0-0.2); BASOPHILS % (AUTO) 0.5 % (0.0-2.0); EOSINOPHILS % (AUTO) 0.8 % (0.0-6.0); HEMATOCRIT 22 % (39-51); LYMPHOCYTES # (AUTO) 0.4 /CMM (0.8-4.8); LYMPHOCYTES % (AUTO) 2.5 % (20.0-44.0); MEAN CORPUSCULAR HGB CONC 30 g/dl (31.0-36.0); MEAN CORPUSCULAR VOLUME 95 fL (80-96); MONOCYTES # (AUTO) 0.7 /CMM (0.1-1.30); MONOCYTES % (AUTO) 4.2 % (2.0-12.0); NEUTROPHILS # (AUTO) 16.4 /CMM (1.8-8.9); PLATELET COUNT (AUTO) 84 /CMM (150-450); WHITE BLOOD COUNT (AUTO) 17.8 K/uL (4.3-11.0)
[2018-05-31 04:49] LABS: ALANINE AMINOTRANSFERASE 18 U/L (12-78); ALKALINE PHOSPHATASE 105 U/L (46-116); ASPARTATE AMINOTRANSFERASE 62 U/L (15-37); BILIRUBIN,TOTAL 1.1 mg/dL (0.2-1.0); CALCIUM, SERUM 7.6 mg/dL (8.5-10.1); CARBON DIOXIDE 27 mmol/L (21-32); CHLORIDE 109 mmol/L (98-107); CREATININE 2.5 mg/dL (0.6-1.3); GLUCOSE 176 mg/dL (74-106); MAGNESIUM 2.5 mg/dL (1.8-2.4); PHOSPHORUS 5.8 mg/dL (2.5-4.9); POTASSIUM 4.7 mmol/L (3.5-5.1); SODIUM SERUM 145 mmol/L (136-145); TOTAL PROTEIN, SERUM 4.6 g/dL (6.4-8.2)
[2018-05-31 04:53] LABS: UREA NITROGEN, BLOOD 82 mg/dL (7-18)
[2018-05-31 04:54] LABS: ALBUMIN 1.1 g/dL (3.4-5.0)
[2018-05-31 05:22] LABS: HEMOGLOBIN 6.5 g/dL (13.5-17.5)
[2018-05-31 05:23] LABS: BAND % (MANUAL) 1 % (0.0-5.0); EOSINOPHILS % (MANUAL) 1 % (0-4); LYMPHOCYTES % (MANUAL) 1 % (16-48); METAMYELOCYTES % 1 % (0-0); MONOCYTES % (MANUAL) 2 % (0-11.0); NEUTROPHILS % (MANUAL) 94 (42-76)
[2018-05-31] MEDS ORDERED: NOREPINEPHRINE 4 MG/4 ML AMPUL IV ONE (05:23)
[2018-05-31] MEDS ORDERED: NOREPINEPHRINE 8 MG in IV D5W 500 ML IV PRN ×2 (05:30→12:00)
--- NOTE | 2018-05-31 05:40 | NUR ---
DR HOPKINS ORDERED FOR PT TO BE STARTED ON LEVOFED, IN ICU, CALLED REHABILITATION COUNSELOR FOR ICU BED, PT ASSIGNED TO [id number], CALLED FOR REPORT, GAVE TO PRASHANT CHARGE, DETAILED REPORT FOR AMANDA, UNABLE TO DO AM CARE WELL WOUND TX D/T HD DONE, PAUL CHARGE REQUESTED NOT TO TOUCH PT POST DAILYSIS, D/T BP TRENDING LOW, CL LABS RELAYED TO PRASHANT TO F/U ON H&H, PLT, PT TRANSFERED TO ICU AND IMMEDIATELY LEVO STARTED. ABLE TO OPENS EYES THROUGH TRANSPORT WHILE AMBU BAGGING TO [facility].
--- NOTE | 2018-05-31 05:47 | NUR ---
ICU/RN ,ON VENT VIA [id number] TRANSFER FROM [facility] W/HYPOTENSION Addendum: 05/31/18 at 0648 by JOHN MESSINA RN ERROR
--- NOTE | 2018-05-31 05:47 | NUR ---
ICU/RN RECEIVED TRANSFER FROM [facility] DUE TO HYPOTENSION,ON VENT VIA TRACH FI02 45 % SAT OF 100% LEVOPHED STARTED AT 2MCG/MIN.
[2018-05-31] MEDS: IV D5/ 0.9% NACL 1,000 ML IV PRN ×2 (06:14→21:48)
--- NOTE | 2018-05-31 07:00 | NUR ---
ICU/RN. ON LEVOPHED DRIP AT 18MCG/MIN.OPENS EYES WHEN NAME CALLED,DOES NO TRACK DOES NOT FOLLOW COMMANDS.REPORT AND CARE OF PT. GIVEN TO
--- NOTE | 2018-05-31 07:40 | NUR ---
DAY PORTER: pt.is without sedation, lethargic, can open eyes by touch, unable to follow commands, on Levophed gtt 18 mcg/m, SBP 85-90 now, will go up with pressor, SR, o2sat. over 96%, RR 24-28, H/H 6.5/84, will speak with MD, wound care done by report, NPO by report
[2018-05-31] MEDS: IPRATROPIUM NEB FS 0.5 MG/2.5 ML AMPUL.NEB NEB SCH ×4 (07:59→20:01)
--- NOTE | 2018-05-31 08:00 | NUR ---
WASTE SPECIALIST: pt.has multiple bruises, tears/reported
--- NOTE | 2018-05-31 08:15 | NUR ---
REMOTE SENSING SPECIALIST: is in room, updated with pt.current condition, VS, I/O, IVF, H/H, HD done 05/30, suction amount, ordered: peep 0, one unit PRBC transfusion
[2018-05-31] MEDS: PANTOPRAZOLE 40 MG VIAL IV SCH ×2 (09:40→21:58)
[2018-05-31] MEDS: DOXYCYCLINE 100 MG in IV D5W 100 ML IV SCH ×2 (09:40→21:59)
[2018-05-31] MEDS: LACTOBACILLUS RHAMNOSUS GG 1 EACH CAP.SPRINK PO SCH ×2 (09:40→16:45)
[2018-05-31] MEDS: DAKINS QUARTER STRENGTH (0.125%) 480 ML BOTTLE TOP SCH (09:42)
--- NOTE | 2018-05-31 10:00 | NUR ---
CLAIM PROCESSOR: ANH Herrmann is in room, updated with all above, Levophed rate, see new orders
[2018-05-31] MEDS: NOREPINEPHRINE 16 MG in IV D5W 500 ML IV PRN ×2 (13:08→21:48)
--- NOTE | 2018-05-31 14:21 | NUR ---
LENS ASSORTER: pt.is more awake, eyes contact+, rest now, suctioned q1-2h, O2sat. over 97%, no RR 25-35/ long time by RT state, SR, continue titrate Levophed gtt, blood bank; PRBC unit is not ready yet by computer info
[2018-05-31] MEDS ORDERED: IV NS 0.9% 250 ML IV PRN (14:45)
[2018-05-31] MEDS: HYDROCODONE/APAP 5/325MG 1 EACH TABLET PO PRN (15:53)
--- NOTE | 2018-05-31 17:58 | NUR ---
CUT OFF MAN: pt.is more awake, Ox1, eyes contact+, denies pain, rest, weak, unable to follow commands, )2sat. over98%, no SOB, suctioned well, same vent.setting, NPO (DT is notified), tolerated well for blood transfusion, will resume IVF after BT, still on 24 mcg/m Levophed, SBP 88-96, SR, PM/skin/wounds care done
--- NOTE | 2018-05-31 18:14 | NUR ---
POST FORM REMOVER: got order for special mattress, but pt.is on Isoflex bed, charge nurse is aware
--- NOTE | 2018-05-31 18:30 | NUR ---
TRANSFUSION AIDE: Ana Lilia Shepherd were in room, updated with pt.VS, Levophed gtt, IVF, I/O, one PRBC order, NPO
--- NOTE | 2018-05-31 20:00 | NUR ---
SUPERVISOR COVERING AND LINING. INITIAL ASSESSMENT,. RECEIVED THE PT REST ON THE BED. AWAKE, NONVERBAL. TRACH TO VENT CONNECTED. DOES NOT FOLLOW COMMANDS. LUCIAN POLANCO#6,AC 16, TV 450,FIO2 45%. SAT 98%. TANK WASHER SHOWING NSR. IV RT UPPERAR, PICC LINE LEVOPHED 24MCG/MIN,IVF D5NS 100ML/H,FC PATENT. GT CLAMPED. MULTIPLE BRUISE NOTED. HOB ELEVATED. WILL CONTINUE TO MONITOR VITALS.
[2018-05-31] MEDS: CEFEPIME 1 GM in IV D5W 50 ML IV SCH (21:59)
--- NOTE | 2018-05-31 22:17 | NUR ---
HEALTHCARE CUSTOMER SERVICE. HD STARTED. WILL CONTINUE TO MONITOR.
--- NOTE | 2018-05-31 23:30 | NUR ---
INSPECTOR WATCH TRAIN. DURING HD 19 BEATS V TACH. PT WAS AWAKE, ALERT. WILL CONTINUE TO MONITOR.
[2018-06-01] VITALS (103 sets, daily range): BP systolic 0–110; BP diastolic 41–67
--- NOTE | 2018-06-01 00:10 | NUR ---
EDGE BONDER. HD DONE. LEVO MAX OUT. 146 ML + REMOVED.
[2018-06-01] MEDS ORDERED: NOREPINEPHRINE 4 MG/4 ML AMPUL IV ONE (02:56)
[2018-06-01] MEDS: ALBUTEROL FS 2.5 MG/0.5 ML VIAL.NEB NEB SCH ×6 (03:37→23:07)
--- NOTE | 2018-06-01 03:51 | NUR ---
RECEIVED PT TRACHED SHLY 6 XLT ON VENT. NO RESP DISTRESS. PT IS AWAKE TOLERATING VENT SETTINGS. SX'D FOR MOD AMT OF THIN WHITE SECRETIONS. VENT ALARMS SET AND AUDIBLE. AMBU BAG AT BEDSIDE. VENT PLUGGED INTO RED OUTLET. WILL CONTINUE TO MONITOR. Addendum: 06/01/18 at 0352 by LATOYA PETERSON RT Amended: Links added.
--- NOTE | 2018-06-01 04:15 | NUR ---
BUDGET REPORT CLERK. AM CARE, ORAL CARE, BED BATH GIVEN. LINEN CHANGED. REMAINING SAME VENT SETTING TOLERATED WELL. SAT 98%. NO ACUTE DISTRESS NOTED, NETWORK SUPPORT ANALYST SHOWING NSR, IV RT UPPER ARM PICC LINE, IVF D5NSW 100ML/H, LEVOPHED 35MCG/MIN,FC PATENT. GT CLAMPED. HOB ELEVATED. TURN AND REPOSITION Q2H. WILL CONTINUE TO MONITOR VITALS.
[2018-06-01] MEDS: NOREPINEPHRINE 16 MG in IV D5W 500 ML IV PRN ×3 (04:58→21:38)
[2018-06-01 05:02] LABS: BASOPHILS % (AUTO) 0.2 % (0.0-2.0); EOSINOPHILS % (AUTO) 0.9 % (0.0-6.0); HEMATOCRIT 33 % (39-51); LYMPHOCYTES # (AUTO) 1.1 /CMM (0.8-4.8); LYMPHOCYTES % (AUTO) 4.9 % (20.0-44.0); MEAN CORPUSCULAR HGB CONC 31 g/dl (31.0-36.0); MEAN CORPUSCULAR VOLUME 94 fL (80-96); MONOCYTES # (AUTO) 1.4 /CMM (0.1-1.30); MONOCYTES % (AUTO) 6.4 % (2.0-12.0); NEUTROPHILS # (AUTO) 19.6 /CMM (1.8-8.9); NEUTROPHILS % (AUTO) 87.6 % (43.0-81.0); PLATELET COUNT (AUTO) 86 /CMM (150-450); RED BLOOD CELL COUNT(AUTO) 3.46 MIL/uL (4.5-6.0); WHITE BLOOD COUNT (AUTO) 22.4 K/uL (4.3-11.0)
[2018-06-01 05:32] LABS: CALCIUM, SERUM 7.3 mg/dL (8.5-10.1); CARBON DIOXIDE 21 mmol/L (21-32); CHLORIDE 103 mmol/L (98-107); CREATININE 2.3 mg/dL (0.6-1.3); GLUCOSE 193 mg/dL (74-106); MAGNESIUM 2.2 mg/dL (1.8-2.4); PHOSPHORUS 5.5 mg/dL (2.5-4.9); POTASSIUM 4.4 mmol/L (3.5-5.1); SODIUM SERUM 137 mmol/L (136-145); UREA NITROGEN, BLOOD 63 mg/dL (7-18)
[2018-06-01 05:57] LABS: BAND % (MANUAL) 4 % (0.0-5.0); BASOPHILS % (MANUAL) 1 % (0.0-2.0); LYMPHOCYTES % (MANUAL) 3 % (16-48); METAMYELOCYTES % 2 % (0-0); MYELOCYTES % 1 % (0-0); NEUTROPHILS % (MANUAL) 88 (42-76); REACTIVE LYMPHOCYTES 1 % (0-0)
--- NOTE | 2018-06-01 07:20 | NUR ---
RN INITIAL NOTES RECEIVED PT AWAKE, A/OX1. TRACH IN PLACE. ON VENT. NO RESPIRATORY DISTRESS NOTED. NO SOB NOTED. JENNY PICC IN PLACE. ON LEVO AT 32MCG/MIN, WILL TITRATE ACCORDINGLY. IVF INFUSING. FC IN PLACE. NO HEMATURIA NOTED. BLE ELEVATED. PT COMFORTABLE. WILL MONITOR.
[2018-06-01] MEDS: PANTOPRAZOLE 40 MG VIAL IV SCH ×2 (08:10→21:00)
[2018-06-01] MEDS: DAKINS QUARTER STRENGTH (0.125%) 480 ML BOTTLE TOP SCH (08:10)
[2018-06-01] MEDS: LACTOBACILLUS RHAMNOSUS GG 1 EACH CAP.SPRINK PO SCH ×2 (08:10→16:20)
[2018-06-01] MEDS: IV D5/ 0.9% NACL 1,000 ML IV PRN (08:13)
[2018-06-01] MEDS: IPRATROPIUM NEB FS 0.5 MG/2.5 ML AMPUL.NEB NEB SCH ×4 (08:39→19:48)
[2018-06-01] MEDS: DOXYCYCLINE 100 MG in IV D5W 100 ML IV SCH ×2 (08:44→21:00)
--- NOTE | 2018-06-01 13:00 | NUR ---
RN NOTES SEEN AND EXAMINED BY MELISSA CEDILLO NP. REVIEWED CURRENT LAB VALUES: WBC 22.4, BUN 63, CREA 2.3 AND LATEST IMAGING STUDIES. PT REMAINS ON LEVO AT 32MCG/MIN. PT AWAKE, A/OX1. NO ORDER MADE. WILL MONITOR.
[2018-06-01] MEDS: HYDROCODONE/APAP 5/325MG 1 EACH TABLET PO PRN (15:07)
[2018-06-01] MEDS: MICAFUNGIN SODIUM 100 MG in IV NS 0.9% 100 ML IV SCH (16:21)
--- NOTE | 2018-06-01 18:36 | NUR ---
RN CLOSING NOTES NO SIGNIFICANT CHANGE NOTED. NO RESPIRATORY DISTRESS NOTED. NO SIGNS OF PAIN NOTED. PT REMAINS ON LEVO, TITRATED ACCORDINGLY. TX PROVIDED ORDERED. KEPT CLEAN AND DRY. REPOSITIONED Q2. WILL ENDORSE FOR CONTINUITY OF CARE.
--- NOTE | 2018-06-01 20:00 | NUR ---
Received patient awake alert with mouth words "agua".With trach to vent on AC mode. No respiratory distress noted.On continuous cardiac monitoring showing SR/ST.Levophed gtt infusing via JENNY PICC LINE for BP support will titrate accordingly.FC to gravity with scanty urine.Patient for HD in AM.Turned and repositioned.
[2018-06-01] MEDS: LEVOFLOXACIN 250 MG /D5W 50 ML 250 MG in PREMIX 1 EA IV SCH (20:01)
[2018-06-01] MEDS ORDERED: PHENYLEPHRINE 80 MG in IV D5W 250 ML IV PRN (21:30)
[2018-06-01] MEDS: CEFEPIME 1 GM in IV D5W 50 ML IV SCH (22:00)
[2018-06-02] VITALS (111 sets, daily range): BP systolic 46–121; BP diastolic 19–102
--- NOTE | 2018-06-02 | NUR ---
Patient awake .Bathed and complete linens changed.Wound dressing done.Turned and repositioned.
[2018-06-02] MEDS ORDERED: PHENYLEPHRINE 10 MG/ML VIAL ONE ×2 (00:16→23:20)
[2018-06-02] MEDS: ALBUTEROL FS 2.5 MG/0.5 ML VIAL.NEB NEB SCH ×2 (03:31→20:22)
--- NOTE | 2018-06-02 04:10 | NUR ---
Patient hemodynamically unstable.Max out of Levophed gtt and Neosynephrine gtt started will titrate accordingly.
[2018-06-02] MEDS: NOREPINEPHRINE 16 MG in IV D5W 500 ML IV PRN ×3 (04:15→17:51)
[2018-06-02 05:26] LABS: HEMATOCRIT 36 % (39-51); HEMOGLOBIN 10.8 g/dL (13.5-17.5); LYMPHOCYTES # (AUTO) 1.2 /CMM (0.8-4.8); MEAN CORPUSCULAR HGB CONC 30 g/dl (31.0-36.0); MEAN CORPUSCULAR VOLUME 95 fL (80-96); MONOCYTES # (AUTO) 0.8 /CMM (0.1-1.30); NEUTROPHILS # (AUTO) 18.9 /CMM (1.8-8.9); PLATELET COUNT (AUTO) 76 /CMM (150-450); RED BLOOD CELL COUNT(AUTO) 3.74 MIL/uL (4.5-6.0); WHITE BLOOD COUNT (AUTO) 21.2 K/uL (4.3-11.0)
[2018-06-02 05:30] LABS: ALANINE AMINOTRANSFERASE 34 U/L (12-78); ALKALINE PHOSPHATASE 140 U/L (46-116); ASPARTATE AMINOTRANSFERASE 95 U/L (15-37); BILIRUBIN,TOTAL 1.3 mg/dL (0.2-1.0); CARBON DIOXIDE 19 mmol/L (21-32); CHLORIDE 101 mmol/L (98-107); CREATININE 2.5 mg/dL (0.6-1.3); GLUCOSE 133 mg/dL (74-106); MAGNESIUM 2.1 mg/dL (1.8-2.4); PHOSPHORUS 6.7 mg/dL (2.5-4.9); POTASSIUM 4.7 mmol/L (3.5-5.1); SODIUM SERUM 135 mmol/L (136-145); TOTAL PROTEIN, SERUM 5.5 g/dL (6.4-8.2); UREA NITROGEN, BLOOD 68 mg/dL (7-18)
[2018-06-02 05:42] LABS: ALBUMIN 1.2 g/dL (3.4-5.0)
[2018-06-02 06:31] LABS: BAND % (MANUAL) 3 % (0.0-5.0); LYMPHOCYTES % (MANUAL) 5 % (16-48); METAMYELOCYTES % 2 % (0-0); MONOCYTES % (MANUAL) 2 % (0-11.0); MYELOCYTES % 2 % (0-0); NEUTROPHILS % (MANUAL) 86 (42-76)
--- NOTE | 2018-06-02 06:58 | NUR ---
Patient status unchanged.Will endorse to day shift for AMANDA.
--- NOTE | 2018-06-02 08:00 | NUR ---
COMPUTATIONAL SCIENTIST RECEIVED PT EASILY AROUSEABLE. NODS YES OR NO. TRACH INTACT, TOLERATING VENT SETTINGS. SPO2 98%. SR PER MONITOR. ANASARCA PRESENT. DRESSINGS OVER ARMS INTACT. GT CLAMPED.
[2018-06-02] MEDS: PANTOPRAZOLE 40 MG VIAL IV SCH ×2 (08:33→21:35)
[2018-06-02] MEDS: LACTOBACILLUS RHAMNOSUS GG 1 EACH CAP.SPRINK PO SCH ×2 (08:33→16:04)
[2018-06-02] MEDS: DAKINS QUARTER STRENGTH (0.125%) 480 ML BOTTLE TOP SCH (08:33)
[2018-06-02] MEDS: DOXYCYCLINE 100 MG in IV D5W 100 ML IV SCH (09:37)
--- NOTE | 2018-06-02 12:00 | NUR ---
EXHIBITIONS CURATOR NO NEW CHANGES SEEN. SUCTIONED.
--- NOTE | 2018-06-02 14:00 | NUR ---
NO NEW C/O. SUCTIONED. REPOSITIONED.
[2018-06-02] MEDS: MICAFUNGIN SODIUM 100 MG in IV NS 0.9% 100 ML IV SCH (16:04)
--- NOTE | 2018-06-02 18:00 | NUR ---
JOURNALISM INTERNSHIP CONTINUES ON 2 PRESSORS WITH BP MAINTAINED. NEW NONBLANCHEABLE AREA NOTED ON RIGHT EAR. AREA PHOTOGRAPHED, COVERED WITH MEPILEX.
[2018-06-02] MEDS ORDERED: FEE PK DOSING 1 MIN EA MC ONE (18:23)
--- NOTE | 2018-06-02 19:15 | NUR ---
MANAGER CREATIVE SERVICES HD NURSE AT BEDSIDE; PT ON LEVOPHED 40 MCG/MIN AND NEOSYNEPHRINE 40 MCG/MIN. CONTINUE TO MONITOR.
[2018-06-02] MEDS: PHENYLEPHRINE 80 MG in IV D5W 250 ML IV PRN ×2 (20:00→22:57)
[2018-06-02] MEDS ORDERED: VANCOMYCIN 1 GM in IV D5W 250 ML IV ONE (20:00)
[2018-06-02] MEDS: IPRATROPIUM NEB FS 0.5 MG/2.5 ML AMPUL.NEB NEB SCH (20:22)
[2018-06-02] MEDS: LEVOFLOXACIN 250 MG /D5W 50 ML 250 MG in PREMIX 1 EA IV SCH (21:35)
[2018-06-02] MEDS: MEROPENEM 500 MG in IV NS 0.9% 50 ML IV SCH (21:35)
[2018-06-02] MEDS ORDERED: IV NS 0.9% 250 ML IV ONE (23:30)
--- NOTE | 2018-06-02 23:55 | NUR ---
ZIPPER MACHINE OPERATOR S/W SON DONNA MAHARAJ UPDATED ON PTS CONDITION; MAXED ON TWO PRESSORS WITH SBP 70-80s; PT COOL TO TOUCH WITH PURPLE EXTREMITIES; SON AGREED TO DNR AT THIS TIME. PER SON HIM AND HIS BROTHER HAVE ALREADY DISCUSSED THEY NO LONGER WANT THEIR FATHER SUFFERING; SON WILL BE HERE IN TH MORNING TO DISCUSS FURTHER PLAN OF CARE.
[2018-06-03] VITALS (53 sets, daily range): BP systolic 20–85; BP diastolic 12–57
--- NOTE | 2018-06-03 | NUR ---
MANAGER OUTREACH OBTAINED DNR ORDER FROM DR HOPKINS; CHARGE NURSE ED WITNESSED.
[2018-06-03] MEDS: ALBUTEROL FS 2.5 MG/0.5 ML VIAL.NEB NEB SCH ×4 (00:29→11:21)
[2018-06-03] MEDS: NOREPINEPHRINE 16 MG in IV D5W 500 ML IV PRN ×2 (00:55→06:16)
[2018-06-03] MEDS: PHENYLEPHRINE 80 MG in IV D5W 250 ML IV PRN ×3 (02:59→10:51)
--- NOTE | 2018-06-03 03:30 | NUR ---
HUMAN RESOURCES OFFICE MANAGER PT NOTED WITH EPISODES OF LOW O2 OR NO O2 SENSOR READING; FIO2 TITRATED TO 100% BY RT WITH INTERMITTENT SP02 READING 95-99%. CONTINUE TO MONITOR.
[2018-06-03] MEDS ORDERED: PHENYLEPHRINE 10 MG/ML VIAL ONE ×3 (05:36→06:06)
--- NOTE | 2018-06-03 07:19 | NUR ---
JEWELRY ESTIMATOR PT REMAINED WITH EPISODES OF LOW BP OR NO BP READING. UNABLE TO TURN AND REPOSITION PT D/T HEMODYNAMIC INSTABILITY. UNABLE TO DO WOUND TREATMENT WELL.
--- NOTE | 2018-06-03 08:09 | NUR ---
INITIAL HEEL WHEELER NOTE RCVD PT AWAKE AND ALERT TO SELF, SR ON MONITOR, TOLERATING ORDERED VENT SETTINGS WELL. G-TUBE PLACEMENT VERIFIED BY AUSCULTATION/ASPIRATION OF DARK GREEN GASTRIC CONTENTS, CLAMPED AT THIS TIME. BRO TO GRAVITY WITHOUT ANY URINARY OUTPUT. PT IN SUPINE POSITION WITH BILATERAL UPPER EXTREMITIES WEEPING, WRAPPED IN KERLIX. JENNY PICC C/D/I/PATENT, PT MAXED OUT ON LEVO AND DEMOND, SBP REMAINS LOW. DR SOLANO IN UNIT UPDATED ON PT'S CONDITION NO NEW ORDERS RCVD. WILL CONTINUE TO MONITOR PT FOR SAFETY AND COMFORT. BED IN LOW AND LOCKED POSITION. CALL LIGHT WITHIN REACH.
[2018-06-03] MEDS: IPRATROPIUM NEB FS 0.5 MG/2.5 ML AMPUL.NEB NEB SCH ×2 (08:33→11:21)
[2018-06-03] MEDS: PANTOPRAZOLE 40 MG VIAL IV SCH (08:36)
[2018-06-03] MEDS: MEROPENEM 500 MG in IV NS 0.9% 50 ML IV SCH (08:36)
[2018-06-03] MEDS: LACTOBACILLUS RHAMNOSUS GG 1 EACH CAP.SPRINK PO SCH (08:36)
[2018-06-03] MEDS: DAKINS QUARTER STRENGTH (0.125%) 480 ML BOTTLE TOP SCH (08:39)
--- NOTE | 2018-06-03 08:41 | NUR ---
MEDICATION NOTE PT'S G-TUBE MED HELD TO PREVENT ASPIRATION, TUBE CLAMPED, PT IN SUPINE POSITION DUE TO HEMODYNAMIC INSTABILITY. WILL CONTINUE TO MONITOR.
--- NOTE | 2018-06-03 10:07 | NUR ---
WOOD WEB WEAVING MACHINE OPERATOR NOTE PT'S SON, DONNA AT BEDSIDE DECIDED TO STOP ALL PT'S MEDICATIONS AND CONTINUE WITH VENTILATOR SUPPORT. COMFORT CARE MEASURES ONLY TO BE GIVEN. DR. LUO AND DR. SOLANO UPDATED ON SON'S DECISION. PER DONNA HE WOULD LIKE TO WAIT UNTIL HIS BROTHER COMES TO SEE HIS DAD BEFORE STOPPING ALL MEDS (INCLUDING PRESSORS) WILL CONTINUE TO MONITOR IN THE MEANTIME.
[2018-06-03] MEDS ORDERED: MORPHINE SULFATE INJ 2 MG/ML DISP.SYRIN IV PRN (10:30)
[2018-06-03] MEDS ORDERED: HYDROMORPHONE INJ 0.5 MG/0.5 ML SYRINGE IV PRN (11:00)
[2018-06-03] MEDS ORDERED: HYDROMORPHONE INJ 2 MG/ML DISP.SYRIN IV PRN (11:30)
--- NOTE | 2018-06-03 11:47 | NUR ---
FURNACE PUNCHER NOTE PT'S SON, MAGDY AT BEDSIDE COMFORT MEASURES STARTED PER FAMILY'S REQUEST. WILL CONTINUE TO MONITOR PT. TIAN SHAH AND RYLEY, JOCKEY ROOM CUSTODIAN AWARE.
--- NOTE | 2018-06-03 12:35 | NUR ---
RN NOTE PT DNR STATUS. FOUND PT APNEIC, ASYSTOLIC, AREFLEXIVE. ASYSTOLE ON MONITOR IN 2 LEADS. PRONOUNCED AT 1235. FAMILY AT BEDSIDE.
--- NOTE | 2018-06-03 15:09 | NUR ---
FOLDING MACHINE TENDER NOTE POST MORTEM CARE DONE, SECURITY CALLED TO [facility] AND [facility]SP[facility]. [facility] CALLED SPOKE WITH [place] CASE #: CC [id number]. PT'S SONS, DONNA AND MAGDY GIVEN INFORMATION REGARDING LOW COST CREMATION AND MORTUARY ASSISTANCE BY BRIGITTE WATER METER MECHANIC. RECORD OF SIGNED BY MAGDY AND PLACED IN CHART. PT HAS NO BELONGINGS AT BEDSIDE OR DOCUMENTED IN CHART, PT'S FAMILY AWARE. PT'S SONS INFORMED OF HOSPITAL BEING ABLE TO HOLD REMAINS FOR 72 HRS TO GIVE THEM TIME TO MAKE ARRANGEMENTS. DONNA AND MAGDY ACKNOWLEDGED.
== END 2018-06-03 15:39 | disposition expired | DRG 853 ==
LOC: ER 13:47 → SAOV 18:41 → ICU 20:53 → TELE-TD 05-24 10:00 → TELE1 05-25 14:38 → ICU 05-31 05:10
PROVIDERS: ADMIT Nurse Practitioner Acute Care; ATTEND Internal Medicine
PROC: 5A1955Z Respiratory Ventilation, Greater than 96 Consecutive Hours (ICD-10-PCS; principal; 2018-05-21)
PROC: 30253N1 (ICD-10-PCS; 2018-05-21)
PROC: 02HV33Z Insertion of Infusion Device into Superior Vena Cava, Percutaneous Approach (ICD-10-PCS; 2018-05-22)
PROC: B548ZZA Ultrasonography of Superior Vena Cava, Guidance (ICD-10-PCS; 2018-05-22)
PROC: 0QB10ZZ Excision of Sacrum, Open Approach (ICD-10-PCS; 2018-05-23)
PROC: 0QB10ZZ Excision of Sacrum, Open Approach (ICD-10-PCS; 2018-05-30)
PROC: 0W9B3ZZ Drainage of Left Pleural Cavity, Percutaneous Approach (ICD-10-PCS; 2018-05-30)
PROC: 06HN33Z Insertion of Infusion Device into Left Femoral Vein, Percutaneous Approach (ICD-10-PCS; 2018-05-30)
PROC: 5A1D70Z Performance of Urinary Filtration, Intermittent, Less than 6 Hours Per Day (ICD-10-PCS; 2018-05-30)
PROC: 5A1D70Z Performance of Urinary Filtration, Intermittent, Less than 6 Hours Per Day (ICD-10-PCS; 2018-05-31)
PROC: 5A1D70Z Performance of Urinary Filtration, Intermittent, Less than 6 Hours Per Day (ICD-10-PCS; 2018-06-02)
DX: A41.59 Other Gram-negative sepsis (principal); L89.154 Pressure ulcer of sacral region, stage 4; L89.324 Pressure ulcer of left buttock, stage 4; L89.314 Pressure ulcer of right buttock, stage 4; R65.21 Severe sepsis with septic shock; R53.2 Functional quadriplegia; E43 Unspecified severe protein-calorie malnutrition; J96.20 Acute and chronic respiratory failure, unspecified whether with hypoxia or hypercapnia; N17.0 Acute kidney failure with tubular necrosis; N18.6 End stage renal disease; J44.0 Chronic obstructive pulmonary disease with (acute) lower respiratory infection; G93.40 Encephalopathy, unspecified; E87.1 Hypo-osmolality and hyponatremia; I13.2 Hypertensive heart and chronic kidney disease with heart failure and with stage 5 chronic kidney disease, or end stage renal disease; Z99.11 Dependence on respirator [ventilator] status; D68.59 Other primary thrombophilia; E87.2 Acidosis; I50.30 Unspecified diastolic (congestive) heart failure; J95.851 Ventilator associated pneumonia; B96.4 Proteus (mirabilis) (morganii) as the cause of diseases classified elsewhere; C32.9 Malignant neoplasm of larynx, unspecified; D64.9 Anemia, unspecified; I25.2 Old myocardial infarction; Z99.2 Dependence on renal dialysis; Z93.0 Tracheostomy status; Z93.1 Gastrostomy status; K21.9 Gastro-esophageal reflux disease without esophagitis; Z51.5 Encounter for palliative care; Z79.4 Long term (current) use of insulin; Z79.899 Other long term (current) drug therapy; R13.10 Dysphagia, unspecified; E86.0 Dehydration; E87.5 Hyperkalemia; E78.5 Hyperlipidemia, unspecified; I70.0 Atherosclerosis of aorta; Z87.440 Personal history of urinary (tract) infections; Z74.01 Bed confinement status; B96.5 Pseudomonas (aeruginosa) (mallei) (pseudomallei) as the cause of diseases classified elsewhere; Y84.9 Medical procedure, unspecified as the cause of abnormal reaction of the patient, or of later complication, without mention of misadventure at the time of the procedure; Y82.9 Unspecified medical devices associated with adverse incidents; Y92.129 Unspecified place in nursing home as the place of occurrence of the external cause
CPT/HCPCS: 31720; 36415; 36569; 36600; 71045-TC; 74018; 76770-TC; 76942-TC; 80048-TC; 80053-TC; 80061-TC; 80076-TC; 80202-TC; 81000-TC; 82272-TC; 82550-TC; 82803-TC; 82962-TC; 83605-TC; 83735-TC; 83880; 83970; 84100-TC; 84134-TC; 84155; 84165; 84484-TC; 85025-TC; 85730-TC; 86704; 86705; 86706; 86803; 86850-TC; 86921-TC; 87040-TC; 87070-TC; 87081-TC; 87086-TC; 87116; 87186-TC; 87206; 87340; 89051-TC; 90935-TC; 94003-TC; 94760-TC; 94762-TC; 94799-TC; 99082-TC; A4216; A4349; A6253; A6402; A6403; A7526; C1751; C9113; G0378; J0278; J0692; J1170; J1940; J1956; J2060; J2185; J2248; J2370; J2405; J3370; J3490; J7030; J7040; J7042; J7050; J7060; P9016-BL; P9047